=== PATIENT | male | born 1960 | race American Indian/Alaskan Native ===

== ENCOUNTER 2019-08-09 07:08 | Observation (INO) | payer MEDICARE ==
--- NOTE | 2019-08-09 07:50 | Emergency Department Report ---
HPI - General Chief Complaint: Dyspnea/Respdistress Time Seen by Provider: 08/09/19 07:37 - HPI HPI: Room 26 The patient is a 58-year-old male present with a chief complaint of shortness of breath. Patient states he feels like he needs hemodialysis as he developed the same shortness of breath whenever he does. Patient states his symptoms began last night. Patient denies history of fever. Patient states he took an albuterol treatment but it did not help. Patient denies sick contacts. Patient states his leaf stripper (Dr. Christine) called him yesterday and informed him he was over his dry weight ED Past Medical Hx - Past Medical History Previous Medical History?: Yes Hx Hypertension: Yes Hx Diabetes: Yes Hx GERD: Yes Hx Renal Disease: Yes (ESRD M,W,F) Hx Asthma: Yes Additional medical history: Hypercholesterolemia, obstructive sleep apnea, GERD - Surgical History Past Surgical History?: Yes Additional Surgical History: Left chest permacath - Family History Family history: no significant - Social History Smoking Status: Former Smoker (None x25 years) Substance Use Type: None (Denies illicit drug use) ED Review of Systems ROS: Stated complaint: DIALYSIS Other details as noted in HPI Constitutional: denies: fever Eyes: denies: eye pain ENT: denies: throat pain Respiratory: shortness of breath Cardiovascular: denies: chest pain Endocrine: no symptoms reported Gastrointestinal: denies: vomiting Musculoskeletal: denies: back pain Neurological: denies: headache Physical Exam - Physical Exam Vital Signs: Vital Signs 08/09/19 08/09/19 07:41 07:42 Temperature 97.8 F O2 Sat by Pulse 93 Oximetry Physical Exam: GENERAL: The patient is well-developed well-nourished male lying on stretcher not appearing to be in acute distress. [] HEENT: Normocephalic. Atraumatic. Extraocular motions are intact. Patient has moist mucous membranes. NECK: Supple. Trachea midline CHEST/LUNGS: Clear to auscultation. There is no respiratory distress noted. HEART/CARDIOVASCULAR: Regular. There is no tachycardia. There is no gallop rub or murmur. ABDOMEN: Abdomen is soft, nontender. Patient has normal bowel sounds. There is no abdominal distention. SKIN: There is no rash. There is no edema. There is no diaphoresis. NEURO: The patient is awake, alert, and oriented. The patient is cooperative. The patient has normal speech MUSCULOSKELETAL: There is no evidence of acute injury. ED Course Vital Signs 08/09/19 08/09/19 07:41 07:42 Temperature 97.8 F O2 Sat by Pulse 93 Oximetry - Consultations Consultation #1: 08/09/19 09:09 Nephrology paged 08/09/19 09:[address] Pillai- will arrange for hemodialysis ED Medical Decision Making - Lab Data Result diagrams: 08/09/19 08:26 08/09/19 08:26 Laboratory Tests 08/09/19 08/09/19 08:26 08:26 WBC 8.7 RBC 3.28 L Hgb 10.4 L Hct 31.0 L MCV 94 MCH 32 MCHC 34 RDW 16.9 H Plt Count 197 Lymph % (Auto) 11.8 L Sab[place] % (Auto) 5.4 Eos % (Auto) 9.4 H Baso % (Auto) 1.3 Lymph # 1.0 L Sabine # 0.5 Eos # 0.8 H Baso # 0.1 Seg Neutrophils % 72.1 H Seg Neutrophils # 6.3 Sodium 137 Potassium 4.9 Chloride 92.3 L Carbon Dioxide 23 Anion Gap 27 BUN 75 H Creatinine 15.6 H Estimated GFR 4 BUN/Creatinine Ratio 5 Glucose 183 H Calcium 9.5 - Radiology Data Radiology results: report reviewed (Chest x-ray), image reviewed ( chest x-ray) interpreted by me: Chest x-ray-no focal infiltrates, no pneumothorax [facility] [address] [place] [address] XRay Report Signed Patient: RAGHU MAY MR#: [id number] : 1960 Acct:[id number] Age/Sex: 58 / M ADM Date: 08/09/19 Loc: ED Attending Dr: Ordering Physician: ERICK CHAVARRIA MD Date of Service: 08/09/19 Procedure(s): XR chest 1V ap Accession Number(s): [id number] cc: ERICK CHAVARRIA MD Fluoro Time In Minutes: CHEST 1 VIEW INDICATION / CLINICAL INFORMATION: Shortness of breath. COMPARISON: None available. FINDINGS: SUPPORT DEVICES: Left IJ tunneled central venous catheter with tip terminating near the cavoatrial junction. HEART / MED IASTINUM: Unremarkable allowing for AP technique. LUNGS / PLEURA: No significant pulmonary or pleural abnormality. No pneumothorax. ADDITIONAL FINDINGS: No significant additional findings. IMPRESSION: 1. No acute findings. Signer Name: Ankita Joy MD Signed: 08/09/2019 8:33 AM Workstation Name: [id number] Transcribed By: [facility] Dictated By: Ankita Joy MD Electronically Authenticated By: Ankita Joy MD Signed Date/Time: 08/09/19832 DD/ 0 TD/TT: - Differential Diagnosis Pulmonary edema, pneumonia, ESRD Critical care attestation.: If time is entered above; I have spent that time in minutes in the direct care of this critically ill patient, excluding procedure time. ED Disposition Clinical Impression: End stage renal disease, Shortness of breath Disposition: DC-09 OP ADMIT IP TO THIS HOSP Is pt being admited?: Yes Does the pt Need Aspirin: No Condition: Fair Time of Disposition: 09:44 (Hospitalist paged)
[2019-08-09 08:34] LABS: Basophils # (Auto) 0.1 K/mm3 (0.0-0.1); Basophils % (Auto) 1.3 % (0.0-1.8); Eosinophils # (Auto) 0.8 K/mm3 (0.0-0.4); Eosinophils % (Auto) 9.4 % (0.0-4.3); Hemoglobin 10.4 gm/dl (11.8-15.2); Lymphocytes % (Auto) 11.8 % (13.4-35.0); Mean Corpuscular HGB Conc 34 % (32-34); Mean Corpuscular Volume 94 fl (84-94); Monocytes # (Auto) 0.5 K/mm3 (0.0-0.8); Monocytes % (Auto) 5.4 % (0.0-7.3); Platelet Count 197 K/mm3 (140-440); Red Blood Count 3.28 M/mm3 (3.65-5.03); Red Cell Distribution Width 16.9 % (13.2-15.2)
--- NOTE | 2019-08-09 08:37 | XRay Report ---
CHEST 1 VIEW INDICATION / CLINICAL INFORMATION: Shortness of breath. COMPARISON: None available. FINDINGS: SUPPORT DEVICES: Left IJ tunneled central venous catheter with tip terminating near the cavoatrial ju nction. HEART / MEDIASTINUM: Unremarkable allowing for AP technique. LUNGS / PLEURA: No significant pulmonary or pleural abnormality. No pneumothorax. ADDITIONAL FINDINGS: No significant additional findings. IMPRESSION: 1. No acute findings. Signer Name: Ankita Joy MD Signed: 08/09/2019 8:33 AM Workstation Name: [id number]
[2019-08-09 08:53] LABS: Calcium 9.5 mg/dL (8.4-10.2)
[2019-08-09] MEDS ORDERED: SODIUM CHLORIDE 0.9% 100 ML IV PRN ×2 (09:59→10:05)
[2019-08-09] MEDS ORDERED: HEPARIN 10,000 UNITS/10 ML VIAL IV PRN (09:59)
[2019-08-09] MEDS ORDERED: EPOETIN ALFA 10,000 UNIT/1 ML INJ IV PRN (09:59)
[2019-08-09] MEDS ORDERED: DEXTROSE 50% IN WATER (25GM) 50 ML SYRINGE IV PRN (10:56)
[2019-08-09] MEDS ORDERED: ALBUTEROL 2.5 MG/3 ML NEBU IH PRN (10:56)
[2019-08-09] MEDS ORDERED: ACETAMINOPHEN 325 MG TAB PO PRN (10:56)
[2019-08-09] MEDS ORDERED: ONDANSETRON 4 MG/2 ML INJ IV PRN (10:56)
[2019-08-09] MEDS ORDERED: MORPHINE 2 MG/1 ML INJ IV PRN (10:56)
--- NOTE | 2019-08-09 11:00 | History and Physical Report ---
History of Present Illness Date of examination: 08/09/19 Date of admission: 08/09/19 10:17 Chief complaint: Shortness of breath History of present illness: Patient is a 58-year-old male past medical history of end-stage renal disease, hypertension, diabetes mellitus among others who presented to the ED with complaint of shortness of breath. Per the patient he had missed dialysis twice last week and was able to have a make-up day on Thursday but does not feel that he is close to his dry weight. He stated upon informing his hand suture winder of his symptoms they asked him to come to the hospital for further evaluation as albuterol treatment alone did not provide any help. Patient denies any contact with anyone diagnosed with the COVID-19 virus. He denies any chest pain nausea vomiting or diarrhea he denies any recent fever. ROS: Except as noted in HPI 14 point system has been reviewed with the patient otherwise negative Past History Past Medical History: diabetes, ESRD, hypertension, hyperlipidemia Past Surgical History: No surgical history (Dialysis access) Social history: no significant social history Family history: no significant family history Medications and Allergies Allergies Allergy/AdvReac Type Severity Reaction Status Date / Time morphine Allergy Rash Verified 08/09/19 07:24 Active Meds: Active Medications Acetaminophen (Tylenol) 650 mg PO Q4H PRN PRN Reason: Pain MILD(1-3)/Fever >100.5/GUERRERO Albuterol (Proventil) 2.5 mg IH Q4HRT PRN PRN Reason: Shortness Of Breath Albuterol/Ipratropium (Duoneb *Not For Prn Use*) 1 ampul IH Q6HRT [facility] Dextrose (D50w (25gm) Syringe) 50 ml IV Q30MIN PRN; Protocol PRN Reason: Hypoglycemia Epoetin Chema (Procrit) 10,000 unit IV HORTENSIA PRN PRN Reason: hemodialysis Famotidine (Pepcid) 20 mg IV BID [facility] Heparin Sodium (Porcine) (Heparin 10,000 Units/10 Ml) 2,000 unit IV HORTENSIA PRN PRN Reason: hemodialysis Sodium Chloride (Nacl 0.9%) 100 mls @ 999 mls/hr IV HORTENSIA PRN PRN Reason: Hypotension Sodium Chloride (Nacl 0.9%) 100 mls @ 999 mls/hr IV HORTENSIA PRN PRN Reason: Hypotension Insulin Glargine (Lantus) 10 units SUB-Q QHS ED Insulin Human Lispro (Humalog) 0 unit SUB-Q ACHS ED; Protocol Morphine Sulfate (Morphine) 2 mg IV Q4H PRN PRN Reason: Pain, Moderate (4-6) Ondansetron HCl (Zofran) 4 mg IV Q8H PRN PRN Reason: Nausea And Vomiting Sodium Chloride (Sodium Chloride Flush Syringe 10 Ml) 10 ml IV BID ED Sodium Chloride (Sodium Chloride Flush Syringe 10 Ml) 10 ml IV PRN PRN PRN Reason: LINE FLUSH Exam - Physical Exam Narrative exam: VITAL SIGNS: Reviewed. GENERAL: The patient appears normally developed, morbidly obese vital signs as documented. HEAD: No signs of head trauma. EYES: Pupils are equal. Extraocular motions intact. EARS: Hearing grossly intact. MOUTH: Oropharynx is normal. NECK: No adenopathy, no JVD. CHEST: Chest with diminished breath sounds bilaterally. No wheezes, rales, or rhonchi. CARDIAC: Regular rate and rhythm. S1 and S2, without murmurs, gallops, or rubs. VASCULAR: No Edema. Peripheral pulses normal and equal in all extremities. ABDOMEN: Soft, non tender and non distended. No rebound or guarding, and no masses palpated. Bowel Sounds normal. MUSCULOSKELETAL: Good range of motion of all major joints. Extremities without clubbing, cyanosis or edema. NEUROLOGIC EXAM: Awake but lethargic and oriented x 3 No focal sensory or strength deficits. Speech normal. Follows commands. PSYCHIATRIC: Mood normal. SKIN: detial exam as documented in skin assessment - Constitutional Vitals: Temp Pulse Resp BP Pulse Ox 97.8 F 75 175/64 93 08/09/19 07:42 08/09/19 07:46 08/09/19 09:30 08/09/19 07:41 Results - Labs CBC & Chem 7: 08/09/19 08:26 08/09/19 08:26 Labs: Laboratory Last Values WBC 8.7 K/mm3 (4.5-11.0) 08/09/19 08:26 RBC 3.28 M/mm3 (3.65-5.03) L 08/09/19 08:26 Hgb 10.4 gm/dl (11.8-15.2) L 08/09/19 08:26 Hct 31.0 % (35.5-45.6) L 08/09/19 08: MCV 94 fl (84-94) 08/09/19 08: MCH 32 pg (28-32) 08/09/19 08:26 MCHC 34 % (32-34) 08/09/19 08:26 RDW 16.9 % (13.2-15.2) H 08/09/19 08:26 Plt Count 197 K/mm3 (140-440) 08/09/19 08:26 Lymph % (Auto) 11.8 % (13.4-35.0) L 08/09/19 08:26 [place] % (Auto) 5.4 % (0.0-7.3) 08/09/19 08:26 Eos % (Auto) 9.4 % (0.0-4.3) H 08/09/19 08:26 Baso % (Auto) 1.3 % (0.0-1.8) 08/09/19 08:26 Lymph # 1.0 K/mm3 (1.2-5.4) L 08/09/19 08:26 [place] # 0.5 K/mm3 (0.0-0.8) 08/09/19 08:26 Eos # 0.8 K/mm3 (0.0-0.4) H 08/09/19 08:26 Baso # 0.1 K/mm3 (0.0-0.1) 08/09/19 08:26 Seg Neutrophils % 72.1 % (40.0-70.0) H 08/09/19 08:26 Seg Neutrophils # 6.3 K/mm3 (1.8-7.7) 08/09/19 08:26 Sodium 137 mmol/L (137-145) 08/09/19 08:26 Potassium 4.9 mmol/L (3.6-5.0) 08/09/19 08:26 Chloride 92.3 mmol/L (98-107) L 08/09/19 08:26 Carbon Dioxide 23 mmol/L (22-30) 08/09/19 08:26 Anion Gap 27 mmol/L 08/09/19 08:26 BUN 75 mg/dL (9-20) H 08/09/19 08:26 Creatinine 15.6 mg/dL (0.8-1.5) H 08/09/19 08:26 Estimated GFR 4 ml/min 08/09/19 08:26 BUN/Creatinine Ratio 5 % 08/09/19 08:26 Glucose 183 mg/dL (75-100) H 08/09/19 08:26 Calcium 9.5 mg/dL (8.4-10.2) 08/09/19 08:26 Assessment and Plan Assessment and plan: Patient is a 58-year-old male past medical history of end-stage renal disease, hypertension, diabetes mellitus among others who presented to the ED with complaint of shortness of breath. Per the patient he had missed dialysis twice last week and was able to have a make-up day on Thursday but does not feel that he is close to his dry weight. He stated upon informing his hand suture winder of his symptoms they asked him to come to the hospital for further evaluation as albuterol treatment alone did not provide any help. Patient denies any contact with anyone diagnosed with the COVID-19 virus. He denies any chest pain nausea vomiting or diarrhea he denies any recent fever. Acute respiratory failure secondary to volume overload Volume overload End-stage renal disease Morbid obesity Diabetes mellitus Hypertension Plan Admit to telemetry Advised patient about fluid restriction and dietary compliance Vending Machine Host/Hostess already been consulted Restart home medications discussed with nursing staff to obtain accurate home med list Insulin sliding scale coverage and Lantus at bedtime Daily weight Anticipate that as patient improves possible discharge in a.m. DVT and GI prophylaxis Advance Directives: Yes Plan of care discussed with patient/family: Yes
[2019-08-09 13:28] LABS: Hepatitis B Surface Antigen Non-Reactive (Negative); Hepatitis C Virus Antibody Non-Reactive (NonReactive)
[2019-08-09] MEDS: IPRATROPIUM/ALBUTEROL SULFATE 3 ML AMPUL.NEB IH SCH ×2 (15:10→20:39)
[2019-08-09] MEDS: INSULIN LISPRO 100 UNIT/ML SUB-Q SCH ×2 (17:47→22:18)
[2019-08-09] MEDS: amLODIPine 10 MG TAB PO SCH (17:51)
[2019-08-09] MEDS ORDERED: INSULIN GLARGINE 100 UNITS/ML SUB-Q SCH ×2 (22:00)
[2019-08-09] MEDS ORDERED: PRAVASTATIN 80 MG TAB PO SCH (22:00)
[2019-08-09] MEDS ORDERED: MONTELUKAST 10 MG TAB PO SCH (22:00)
[2019-08-09] MEDS ORDERED: FAMOTIDINE 20 MG/2 ML INJ IV SCH (22:00)
[2019-08-09] MEDS: FAMOTIDINE 10 MG TAB PO SCH (23:33)
[2019-08-10] MEDS: IPRATROPIUM/ALBUTEROL SULFATE 3 ML AMPUL.NEB IH SCH ×3 (02:49→16:36)
[2019-08-10 04:31] LABS: Basophils # (Auto) 0.1 K/mm3 (0.0-0.1); Basophils % (Auto) 1.1 % (0.0-1.8); Eosinophils % (Auto) 12.6 % (0.0-4.3); Hematocrit 31.5 % (35.5-45.6); Hemoglobin 10.4 gm/dl (11.8-15.2); Lymphocytes # (Auto) 1.2 K/mm3 (1.2-5.4); Lymphocytes % (Auto) 15.5 % (13.4-35.0); Mean Corpuscular HGB Conc 33 % (32-34); Mean Corpuscular Volume 95 fl (84-94); Monocytes # (Auto) 0.5 K/mm3 (0.0-0.8); Platelet Count 188 K/mm3 (140-440); Red Blood Count 3.31 M/mm3 (3.65-5.03); Red Cell Distribution Width 17.8 % (13.2-15.2)
[2019-08-10 04:50] LABS: Calcium 9.2 mg/dL (8.4-10.2)
[2019-08-10] MEDS ORDERED: ALBUTEROL 8.5 GM INHALATION IH PRN (08:27)
[2019-08-10] MEDS: INSULIN LISPRO 100 UNIT/ML SUB-Q SCH ×3 (08:40→13:36)
[2019-08-10] MEDS ORDERED: SODIUM CHLORIDE*PRIMING MACHINE ONLY FOR DIALYSIS MC ONE (09:47)
[2019-08-10] MEDS ORDERED: METOPROLOL TARTRATE 50 MG TAB PO SCH (10:00)
[2019-08-10] MEDS ORDERED: PANTOPRAZOLE 40 MG TAB PO SCH (10:00)
--- NOTE | 2019-08-10 12:29 | Discharge Summary ---
Providers - Providers Date of Admission: 08/09/19 10:17 Attending physician: CRISTOFER MARIO MD 08/09/19 09:43 Consult to Physician [CONS] Urgent Comment: DR AURA RICHARDS W/DR DUQUE @0941 Consulting Provider: AUDREY DUQUE Physician Instructions: Reason For Exam: ESRD, shortness of breath Primary care physician: LUIS PAK Hospitalization Reason for admission: Volume overload with respiratory failure Condition: Stable Hospital course: Patient is a 58-year-old male past medical history of end-stage renal disease, hypertension, diabetes mellitus among others who presented to the ED with complaint of shortness of breath. Per the patient he had missed dialysis twice last week and was able to have a make-up day on Thursday but does not feel that he is close to his dry weight. He stated upon informing his employee representative of his symptoms they asked him to come to the hospital for further evaluation as albuterol treatment alone did not provide any help. Patient denies any contact with anyone diagnosed with the COVID-19 virus. He denies any chest pain nausea vomiting or diarrhea he denies any recent fever. * Patient on admission was dialyzed next day the patient was also dialyzed with good result. Discussed with employee representative today through commended the patient can be discharged and follow-up outpatient. No other abdominal findings were noted discussed this management with the patient he verbalized understanding he denies any shortness of breath at this time. * Patient will resume all home medications. Acute respiratory failure secondary to volume overload Volume overload End-stage renal disease Morbid obesity Diabetes mellitus Hypertension Disposition: DC-01 TO HOME OR SELFCARE Time spent for discharge: 35 minutes Core Measure Documentation - Palliative Care Palliative Care/ Comfort Measures: Not Applicable - Core Measures Any of the following diagnoses?: none Exam - Physical Exam Narrative exam: VITAL SIGNS: Reviewed. GENERAL: The patient appears normally developed, morbidly obese vital signs as documented. HEAD: No signs of head trauma. EYES: Pupils are equal. Extraocular motions intact. EARS: Hearing grossly intact. MOUTH: Oropharynx is normal. NECK: No adenopathy, no JVD. CHEST: Chest with diminished breath sounds bilaterally. No wheezes, rales, or rhonchi. CARDIAC: Regular rate and rhythm. S1 and S2, without murmurs, gallops, or rubs. VASCULAR: No Edema. Peripheral pulses normal and equal in all extremities. ABDOMEN: Soft, non tender and non distended. No rebound or guarding, and no masses palpated. Bowel Sounds normal. MUSCULOSKELETAL: Good range of motion of all major joints. Extremities without clubbing, cyanosis or edema. NEUROLOGIC EXAM: Awake and oriented x 3 No focal sensory or strength deficits. Speech normal. Follows commands. PSYCHIATRIC: Mood normal. SKIN: detial exam as documented in skin assessment - Constitutional Vitals: Temp Pulse Resp BP Pulse Ox 98.3 F 67 18 158/67 98 08/10/19 07:49 08/10/19 08:43 08/10/19 08:43 08/10/19 07:49 08/10/19 08:43 Plan Activity: advance as tolerated, fall precautions Diet: diabetic, renal Special Instructions: record daily BP diary, record blood sugar diary Follow up with: LUIS PAK MD [Primary Care Provider] - 7 Days MORRIS GRIER MD [Staff Physician] - 7 Days
[2019-08-10] MEDS: amLODIPine 10 MG TAB PO SCH (13:36)
[2019-08-10] MEDS: FAMOTIDINE 10 MG TAB PO SCH (13:36)
[2019-08-10 15:02] VITALS: BP 172/98
--- NOTE | 2019-08-10 15:28 | Consultation ---
History of Present Illness - Reason for Consult Consult date: 08/10/19 end stage renal disease Requesting physician: CRISTOFER MARIO - History of Present Illness 58-year-old male with a history of hypertension, end-stage renal disease on hemodialysison a Thursday, Thursday and Thursday schedule at see [place] dialysis. Patient's says he has had some problems with his insurance and had no coverage for transportation to dialysis. He missed dialysis on Thursday and because of this. His last dialysis was last Thursday. Patient started having shortness of breath and chest discomfort and decided to come to the hospital for dialysis whille awaiting a solution to his insurance issues. Patient admits to cough which is productive of clear sputum. No hemoptysis. He has midsternal chest discomfort which radiates to the back worse on moving. There is no fever or chills. Appetite has been good. He admits to nasal congestion and posterior nasal drip. No palpitations and very mild lower extremity swelling. And denies any nausea or vomiting. He makes very little urine with no frequency or dysuria. No bleeding or bruising. He admits to itching but no rash. No headache or syncope or seizures. No joint pain swelling or stiffness but he admits to anxiety and depression symptoms Past History Past Medical History: diabetes, ESRD, hypertension, hyperlipidemia, other (morbid obesity) Past Surgical History: No surgical history (Dialysis access), Other (AV fistula surgery and revisions, Permacath placement) Social history: no significant social history. denies: smoking, alcohol abuse Family history: no significant family history, hypertension (mother) Medications and Allergies Allergies Allergy/AdvReac Type Severity Reaction Status Date / Time morphine Allergy Rash Verified 08/09/19 07:24 Home Medications Medication Instructions Recorded Confirmed Last Taken Type Albuterol INH(or & Nicu Only) 2 puff IH QID PRN 08/09/19 08/09/19 Unknown History [ProAir HFA Inhaler] Amlodipine Besylate [Norvasc] 10 mg PO DAILY 08/09/19 08/09/19 Unknown History Insulin Detemir [Levemir Flextouch] 20 unit SQ BID 08/09/19 08/09/19 08/08/19 History Metoprolol Succinate [Kapspargo 50 mg PO DAILY 08/09/19 08/09/19 Unknown History Sprinkle] Montelukast [Singulair] 10 mg PO QPM 08/09/19 08/09/19 Unknown History Omeprazole Magnesium [PriLOSEC Otc] 40 mg PO QDAY 08/09/19 08/09/19 Unknown History Simvastatin 40 mg PO QHS 08/09/19 08/09/19 Unknown History Active Meds: Active Medications Acetaminophen (Tylenol) 650 mg PO Q4H PRN PRN Reason: Pain MILD(1-3)/Fever >100.5/GUERRERO Albuterol (Proventil) 2.5 mg IH Q4HRT PRN PRN Reason: Shortness Of Breath Albuterol/Ipratropium (Duoneb *Not For Prn Use*) 1 ampul IH Q6HRT [facility] Last Admin: 08/10/19 08:40 Dose: 1 ampul Documented by: Amlodipine Besylate (Amlodipine) 10 mg PO QDAY [facility] Last Admin: 08/10/19 13:36 Dose: Not Given Documented by: Dextrose (D50w (25gm) Syringe) 50 ml IV Q30MIN PRN; Protocol PRN Reason: Hypoglycemia Epoetin Chema (Procrit) 10,000 unit IV HORTENSIA PRN PRN Reason: hemodialysis Famotidine (Pepcid) 10 mg PO BID [facility] Last Admin: 08/10/19 13:36 Dose: Not Given Documented by: Heparin Sodium (Porcine) (Heparin 10,000 Units/10 Ml) 2,000 unit IV HORTENSIA PRN PRN Reason: hemodialysis Sodium Chloride (Nacl 0.9%) 100 mls @ 999 mls/hr IV HORTENSIA PRN PRN Reason: Hypotension Insulin Glargine (Lantus) 20 units SUB-Q QHS [facility] Last Admin: 08/09/19 22:19 Dose: 20 units Documented by: Insulin Human Lispro (Humalog) 0 unit SUB-Q [facility]; Protocol Last Admin: 08/10/19 13:36 Dose: Not Given Documented by: Metoprolol Tartrate (Metoprolol) 50 mg PO QDAY [facility] Last Admin: 08/10/19 13:36 Dose: Not Given Documented by: Montelukast Sodium (Singulair) 10 mg PO QHS [facility] Last Admin: 08/09/19 22:17 Dose: 10 mg Documented by: Morphine Sulfate (Morphine) 2 mg IV Q4H PRN PRN Reason: Pain, Moderate (4-6) Ondansetron HCl (Zofran) 4 mg IV Q8H PRN PRN Reason: Nausea And Vomiting Pantoprazole Sodium (Protonix) 40 mg PO QDAY [facility] Last Admin: 08/10/19 13:36 Dose: Not Given Documented by: Pravastatin Sodium (Pravachol) 80 mg PO QHS [facility] Last Admin: 08/09/19 22:17 Dose: 80 mg Documented by: Sodium Chloride (Sodium Chloride Flush Syringe 10 Ml) 10 ml IV BID [facility] Last Admin: 08/10/19 13:36 Dose: Not Given Documented by: Sodium Chloride (Sodium Chloride Flush Syringe 10 Ml) 10 ml IV PRN PRN PRN Reason: LINE FLUSH Review of Systems All systems: negative (See HPI) Exam - Vital Signs Vital signs: Vital Signs Pulse Ox 96 08/09/19 07:33 - Physical Exam Narrative exam: middle-aged -[place] male lying in bedin no acute distress HEENT: Normocephalic atraumatic, pupils equal round reactive to light Normal oropharynx, Neck: Supple, no venous distention, no goiter, IJ permacath CVS: S1S2 RRR No murmur, rub or gallop Lungs: Clear to auscultation, no use of accessory muscles of respiration Abdomen: Full, soft, nontender, no organomegaly no bruit, bowel sounds are present Extremities: No edema, no cyanosis or clubbing Urinary: Deferred Musculo-skeletal: No joint deformities or swelling, clotted right upper extremity AV fistula Neuro: Awake, alert, no focal deficits Results - Lab Results 08/10/19 03:58 08/10/19 03:58 Most recent lab results Calcium 9.2 mg/dL (8.4-10.2) 08/10/19 03:58 Assessment and Plan - Patient Problems (1) Other fluid overload Current Visit: Yes Status: Acute Plan to address problem: fluid overload secondary to missed dialysis treatments. Improved with dialysis. (2) Accelerated essential hypertension Current Visit: Yes Status: Acute Plan to address problem: accelerated hypertension probably volume related. Blood pressure has improved with dialysis. (3) Anemia in chronic kidney disease Current Visit: Yes Status: Acute Plan to address problem: continue erythropoietin on dialysis (4) End stage renal disease Current Visit: Yes Status: Acute Plan to address problem: hemodialysis was done yesterday and again today for solute clearance and fluid removal. Reevaluate after dialysis today. Patient should be okay to discharge from renal standpoint after dialysis. He will go to the outpatient dialysis clinic on Thursday. I have asked him to speak with the social services director at the dialysis clinic and see what arrangements can be made to help with his transportation for for dialysis.
== END 2019-08-10 17:00 | disposition home or self-care (01) ==
LOC: ED 07:08 → 4A 10:17
PROVIDERS: ADMIT Internal Medicine; ATTEND Internal Medicine
DX: J96.00 Acute respiratory failure, unspecified whether with hypoxia or hypercapnia (principal); E87.70 Fluid overload, unspecified; I12.0 Hypertensive chronic kidney disease with stage 5 chronic kidney disease or end stage renal disease; E11.22 Type 2 diabetes mellitus with diabetic chronic kidney disease; N18.6 End stage renal disease; E66.01 Morbid (severe) obesity due to excess calories; E78.5 Hyperlipidemia, unspecified; D63.1 Anemia in chronic kidney disease; J45.909 Unspecified asthma, uncomplicated; K21.9 Gastro-esophageal reflux disease without esophagitis; E78.00 Pure hypercholesterolemia, unspecified; G47.33 Obstructive sleep apnea (adult) (pediatric); Z87.891 Personal history of nicotine dependence; Z99.2 Dependence on renal dialysis; Z79.4 Long term (current) use of insulin; Z79.899 Other long term (current) drug therapy; Z88.5 Allergy status to narcotic agent
CPT/HCPCS: 36415; 71045; 80048; 80074; 82962; 85025; 94640; 99284; A9270; G0257; G0378; J0885; J1644; J7030; J1815

== ENCOUNTER 2019-09-16 10:39 | Observation (INO) | payer MEDICARE ==
--- NOTE | 2019-09-16 11:19 | Emergency Department Report ---
ED General Adult HPI - General Chief complaint: Dyspnea/Respdistress Stated complaint: CHEST PAIN Time Seen by Provider: 09/16/19 11:05 Source: patient, EMS Mode of arrival: Stretcher Limitations: No Limitations - History of Present Illness Initial comments: This is a 58-year-old man with a permacath that he was told was not functioning properly on Thursday. Is uncertain why he waited 2 days to report to the emergency department. In any case his last full dialysis he states was "Thursday or Thursday". He is not very cooperative. He would not allow the IV team to stick him more than once for IV access. He states today that he is short of breath. He states the dyspnea worsens when he sits up. He will lay in the left lateral decubitus position and does not cooperate very well with physical exam. Denies fever. He denies chest pain, nausea or vomiting. However he is providing limited historical information. July Discharge Summary: Hospitalization Reason for admission: Volume overload with respiratory failure Condition: Stable Hospital course: Patient is a 58-year-old male past medical history of end-stage renal disease, hypertension, diabetes mellitus among others who presented to the ED with complaint of shortness of breath. Per the patient he had missed dialysis twice last week and was able to have a make-up day on Thursday but does not feel that he is close to his dry weight. He stated upon informing his salesperson new cars of his symptoms they asked him to come to the hospital for further evaluation as albuterol treatment alone did not provide any help. Patient denies any contact with anyone diagnosed with the COVID-19 virus. He denies any chest pain nausea vomiting or diarrhea he denies any recent fever. Patient on admission was dialyzed next day the patient was also dialyzed with good result. Discussed with salesperson new cars today through commended the patient can be discharged and follow-up outpatient. No other abdominal findings were noted discussed this management with the patient he verbalized understanding he denies any shortness of breath at this time. Patient will resume all home medications. Acute respiratory failure secondary to volume overload Volume overload End-stage renal disease Morbid obesity Diabetes mellitus Hypertension -: Gradual Consistency: other (No pain complaint) Treatments Prior to Arrival: other (No full dialysis since the beginning of the week as above ) - Related Data Home Medications Medication Instructions Recorded Confirmed Last Taken Albuterol INH(or & Nicu Only) 2 puff IH QID PRN 08/09/19 08/09/19 Unknown [ProAir HFA Inhaler] Amlodipine Besylate [Norvasc] 10 mg PO DAILY 08/09/19 08/09/19 Unknown Insulin Detemir [Levemir Flextouch] 20 unit SQ BID 08/09/19 08/09/19 08/08/19 Metoprolol Succinate [[place]sp[place] 50 mg PO DAILY 08/09/19 08/09/19 Unknown Sprinkle] Montelukast [Singulair] 10 mg PO QPM 08/09/19 08/09/19 Unknown Omeprazole Magnesium [PriLOSEC Otc] 40 mg PO QDAY 08/09/19 08/09/19 Unknown Simvastatin 40 mg PO QHS 08/09/19 08/09/19 Unknown Allergies Allergy/AdvReac Type Severity Reaction Status Date / Time morphine Allergy Rash Verified 08/09/19 07:24 ED Review of Systems ROS: Stated complaint: CHEST PAIN Other details as noted in HPI Comment: Unobtainable due to pts medical conditions ED Past Medical Hx - Past Medical History Previous Medical History?: Yes Hx Hypertension: Yes Hx Diabetes: Yes Hx GERD: Yes Hx Renal Disease: Yes (ESRD M,W,F) Hx Asthma: Yes Additional medical history: Hypercholesterolemia, obstructive sleep apnea, GERD - Surgical History Past Surgical History?: Yes Additional Surgical History: Left chest permacath - Social History Smoking Status: Unknown if ever smoked Substance Use Type: None - Medications Home Medications: Home Medications Medication Instructions Recorded Confirmed Last Taken Type Albuterol INH(or & Nicu Only) 2 puff IH QID PRN 08/09/19 08/09/19 Unknown History [ProAir HFA Inhaler] Amlodipine Besylate [Norvasc] 10 mg PO DAILY 08/09/19 08/09/19 Unknown History Insulin Detemir [Levemir Flextouch] 20 unit SQ BID 08/09/19 08/09/19 08/08/19 History Metoprolol Succinate [[place] 50 mg PO DAILY 08/09/19 08/09/19 Unknown History Sprinkle] Montelukast [Singulair] 10 mg PO QPM 08/09/19 08/09/19 Unknown History Omeprazole Magnesium [PriLOSEC Otc] 40 mg PO QDAY 08/09/19 08/09/19 Unknown History Simvastatin 40 mg PO QHS 08/09/19 08/09/19 Unknown History ED Physical Exam - General Limitations: Physical Limitation General appearance: alert - Head Head exam: Present: atraumatic, normocephalic - Eye Eye exam: Present: normal appearance. Absent: scleral icterus - ENT ENT exam: Present: mucous membranes moist - Neck Neck exam: Present: normal inspection - Respiratory Respiratory exam: Present: normal lung sounds bilaterally, other (Permacath on left). Absent: respiratory distress - Cardiovascular Cardiovascular Exam: Present: regular rate, normal rhythm. Absent: systolic murmur, diastolic murmur, rubs, gallop - GI/Abdominal GI/Abdominal exam: Present: soft, normal bowel sounds, other (Limited exam). Absent: tenderness, guarding - Rectal Rectal exam: Present: deferred - Extremities Exam Extremities exam: Absent: calf tenderness - Back Exam Back exam: Present: other (Limited exam) - Neurological Exam Neurological exam: Present: alert, oriented X3, other (No gross focal deficit) - Psychiatric Psychiatric exam: Present: normal mood, flat affect - Skin Skin exam: Present: warm, dry, intact, normal color. Absent: rash ED Course Vital Signs 09/16/19 10:55 Temperature 98.3 F Pulse Rate 78 Respiratory 20 Rate Blood Pressure 182/98 O2 Sat by Pulse 98 Oximetry - Reevaluation(s) Reevaluation #1: Unable to get adequate cooperation for venous access. Patient just allowed one attempt which was unsuccessful by the IV team. Discussed with Dr. Hyde, vascular surgeon. The patient will be taken to the [facility] for evaluation of his permacath. Hospitalist notified of the need to admit. Nephrology consult called. Patient in stable condition. 09/16/19 12:32 ED Medical Decision Making - Lab Data Result diagrams: 09/16/19 11:13 09/16/19 11:13 Laboratory Results - last 24 hr 09/16/19 09/16/19 09/16/19 11:13 11:13 11:13 WBC 7.6 RBC 3.37 L Hgb 10.3 L Hct 31.5 L MCV 94 MCH 31 MCHC 33 RDW 16.6 H Plt Count 160 Lymph % (Auto) 16.3 [place] % (Auto) 6.1 Eos % (Auto) 11.8 H Baso % (Auto) 0.7 Lymph # 1.2 [place] # 0.5 Eos # 0.9 H Baso # 0.1 Seg Neutrophils % 65.1 Seg Neutrophils # 4.9 PT 12.7 INR 0.97 APTT 26.9 Sodium 135 L Potassium 5.3 H Chloride 89.7 L Carbon Dioxide 25 Anion Gap 26 BUN 51 H Creatinine 12.9 H Estimated GFR 5 BUN/Creatinine Ratio 4 Glucose 156 H Calcium 9.4 Phosphorus 11.00 H NT-Pro-B Natriuret Pep 4368 H - EKG Data -: EKG Interpreted by [place] EKG shows normal: sinus rhythm, axis, intervals, QRS complexes (Slightly peaked), ST-T waves - EKG Data Interpretation: no acute changes - Radiology Data Radiology results: image reviewed (Chest x-ray no acute process) Critical care attestation.: If time is entered above; I have spent that time in minutes in the direct care of this critically ill patient, excluding procedure time. ED Disposition Clinical Impression: End-stage renal disease needing dialysis, Hyperkalemia, Hyperphosphatemia Hemodialysis catheter malfunction Qualifiers: Encounter type: initial encounter Qualified Code(s): T82.41XA - Breakdown (mechanical) of vascular dialysis catheter, initial encounter Disposition: 09 OP ADMIT IP TO THIS HOSP Is pt being admited?: Yes Does the pt Need Aspirin: No Condition: Stable Referrals: PRIMARY CARE, [Primary Care Provider] - 3-5 Days Time of Disposition: 12:35
[2019-09-16 11:50] LABS: Basophils # (Auto) 0.1 K/mm3 (0.0-0.1); Basophils % (Auto) 0.7 % (0.0-1.8); Eosinophils # (Auto) 0.9 K/mm3 (0.0-0.4); Eosinophils % (Auto) 11.8 % (0.0-4.3); Hematocrit 31.5 % (35.5-45.6); Hemoglobin 10.3 gm/dl (11.8-15.2); Lymphocytes # (Auto) 1.2 K/mm3 (1.2-5.4); Lymphocytes % (Auto) 16.3 % (13.4-35.0); Mean Corpuscular HGB Conc 33 % (32-34); Mean Corpuscular Volume 94 fl (84-94); Monocytes # (Auto) 0.5 K/mm3 (0.0-0.8); Monocytes % (Auto) 6.1 % (0.0-7.3); Platelet Count 160 K/mm3 (140-440); Red Blood Count 3.37 M/mm3 (3.65-5.03); Red Cell Distribution Width 16.6 % (13.2-15.2)
[2019-09-16 11:57] LABS: INR 0.97 (0.87-1.13)
[2019-09-16 11:58] LABS: Partial Thromboplastin Time 26.9 Sec. (24.2-36.6)
[2019-09-16 12:10] LABS: Calcium 9.4 mg/dL (8.4-10.2)
[2019-09-16] MEDS ORDERED: HEPARIN/NS 5000 UNIT/500ML 500 ML IR ONE (13:27)
[2019-09-16] MEDS ORDERED: LIDOCAINE 1%/EPINEPHRINE 1:100,000 VIAL (20 ML) INFILTRATI ONE (13:28)
[2019-09-16] MEDS ORDERED: MIDAZOLAM 2 MG/2 ML INJ ONE (14:00)
[2019-09-16] MEDS ORDERED: fentaNYL 100 MCG/2 ML INJ ONE (14:00)
[2019-09-16] MEDS: HEPARIN 10,000 UNITS/10 ML VIAL ONE ×2 (14:19→14:20)
[2019-09-16] MEDS ORDERED: SODIUM CHLORIDE 0.9% 100 ML IV PRN ×2 (14:31→15:43)
[2019-09-16 16:26] LABS: Hepatitis B Surface Antigen Non-Reactive (Negative); Hepatitis C Virus Antibody Non-Reactive (NonReactive)
[2019-09-16] MEDS ORDERED: INSULIN REGULAR, HUMAN 100 UNITS/1 ML SUB-Q ONE (22:46)
[2019-09-16] MEDS ORDERED: DEXTROSE 50% IN WATER (25GM) 50 ML SYRINGE IV PRN (23:30)
[2019-09-16] MEDS ORDERED: HYDROcodone/ACETAMINOPHEN 5-325 MG TAB PO PRN (23:30)
[2019-09-16] MEDS ORDERED: ZOLPIDEM 5 MG TAB PO PRN (23:30)
[2019-09-16] MEDS ORDERED: ONDANSETRON 4 MG/2 ML INJ IV PRN (23:30)
[2019-09-16] MEDS ORDERED: ACETAMINOPHEN 325 MG TAB PO PRN (23:30)
[2019-09-16] MEDS ORDERED: ALBUTEROL 8.5 GM INHALATION IH PRN (23:36)
[2019-09-16] MEDS ORDERED: INSULIN DETEMIR 20 UNIT SQ SCH (23:45)
[2019-09-17] MEDS: PANTOPRAZOLE 40 MG TAB PO SCH ×2 (00:24→13:43)
[2019-09-17] MEDS: ALBUTEROL 2.5 MG/3 ML NEBU IH PRN ×3 (00:26→17:20)
[2019-09-17] MEDS: INSULIN GLARGINE 100 UNITS/ML SUB-Q SCH ×2 (00:27→13:43)
[2019-09-17] MEDS ORDERED: FAMOTIDINE 20 MG/2 ML INJ IV SCH (10:00)
[2019-09-17] MEDS ORDERED: METOPROLOL SUCCINATE 50 MG PO SCH (10:00)
[2019-09-17] MEDS ORDERED: amLODIPine 10 MG TAB PO SCH (10:00)
[2019-09-17] MEDS ORDERED: ENOXAPARIN 40 MG/0.4 ML INJ SUB-Q SCH (10:00)
[2019-09-17] MEDS ORDERED: ENOXAPARIN 30 MG/0.3 ML INJ SUB-Q SCH (10:00)
[2019-09-17] MEDS ORDERED: METOPROLOL SUCCINATE XL 50 MG TAB PO SCH (10:00)
[2019-09-17] MEDS ORDERED: SODIUM CHLORIDE 0.9% 1000 ML 2,000 ML ONE (11:02)
[2019-09-17 18:04] VITALS: BP 178/72
[2019-09-17] MEDS ORDERED: PRAVASTATIN 80 MG TAB PO SCH (22:00)
[2019-09-17] MEDS ORDERED: NON-FORMULARY EACH (Simvastatin [Simvastatin] 40 MG) PO SCH (22:00)
== END 2019-09-17 17:33 | disposition home or self-care (01) ==
LOC: ED 10:39 → 3A 12:24 → INTOOBSV 12:24 → 3A 16:53
PROVIDERS: ADMIT Internal Medicine; ATTEND Internal Medicine
DX: T82.41XA Breakdown (mechanical) of vascular dialysis catheter, initial encounter (principal); I13.2 Hypertensive heart and chronic kidney disease with heart failure and with stage 5 chronic kidney disease, or end stage renal disease; E13.22 Other specified diabetes mellitus with diabetic chronic kidney disease; N18.6 End stage renal disease; I50.9 Heart failure, unspecified; E66.01 Morbid (severe) obesity due to excess calories; D63.1 Anemia in chronic kidney disease; E78.5 Hyperlipidemia, unspecified; E83.39 Other disorders of phosphorus metabolism; E87.5 Hyperkalemia; Z99.2 Dependence on renal dialysis; Z88.5 Allergy status to narcotic agent; Z79.899 Other long term (current) drug therapy; Z79.4 Long term (current) use of insulin; Z68.43 Body mass index [BMI] 50.0-59.9, adult; X58.XXXA Exposure to other specified factors, initial encounter; Y93.89 Activity, other specified; Y92.89 Other specified places as the place of occurrence of the external cause
CPT/HCPCS: 36415; 36581; 71045; 77001; 80048; 80074; 82962; 83880; 84100; 85025; 85610; 85730; 94640; 96372; 99285; C1750; G0257; G0378; J1644; J1650; J2250; J3010; J7030; J1815

== ENCOUNTER 2019-12-10 22:37 | Emergency (ER) | payer MEDICARE ==
[2019-12-10] MEDS ORDERED: ASPIRIN 325 MG TAB PO ONE (23:57)
[2019-12-11 00:41] LABS: Basophils # (Auto) 0.1 K/mm3 (0.0-0.1); Basophils % (Auto) 0.8 % (0.0-1.8); Eosinophils # (Auto) 0.9 K/mm3 (0.0-0.4); Eosinophils % (Auto) 8.4 % (0.0-4.3); Hematocrit 34.4 % (35.5-45.6); Hemoglobin 11.1 gm/dl (11.8-15.2); Lymphocytes # (Auto) 0.9 K/mm3 (1.2-5.4); Lymphocytes % (Auto) 9.1 % (13.4-35.0); Mean Corpuscular HGB Conc 32 % (32-34); Mean Corpuscular Volume 94 fl (84-94); Monocytes # (Auto) 0.5 K/mm3 (0.0-0.8); Monocytes % (Auto) 5.2 % (0.0-7.3); Platelet Count 229 K/mm3 (140-440); Red Blood Count 3.66 M/mm3 (3.65-5.03); Red Cell Distribution Width 16.5 % (13.2-15.2)
[2019-12-11 00:57] LABS: Calcium 10.1 mg/dL (8.4-10.2)
[2019-12-11 01:42] LABS: Chol/HDL Ratio 4.54 %
[2019-12-11] MEDS ORDERED: oxyCODONE /ACETAMINOPHEN 5-325MG TAB PO ONE (02:26)
--- NOTE | 2019-12-11 02:31 | Emergency Department Report ---
ED General Adult HPI - General Chief complaint: Chest Pain Stated complaint: CHEST PAIN/ABDOMINAL PAIN/SOB PUI?: No Time Seen by Provider: 12/11/19 02:26 Source: patient, EMS Mode of arrival: Stretcher Limitations: No Limitations - History of Present Illness Initial comments: This is a 59-year-old male with history of end-stage renal disease on hemodialysis, severe obesity, hypertension, DM who presents with left lower rib cage pain for the past several days. Patient has had nasal and chest congestion. With cough he has pain. He has pain with moving and transferring. He has been sick for several days. He thinks that he may have popped a rib. -: Gradual, days(s) (Several days) Location: chest Severity scale (0 -10): 6 Quality: sharp Consistency: constant Worsens with: movement, other (Cough) Associated Symptoms: other (Nasal and chest congestion, frequent cough) - Related Data Home Medications Medication Instructions Recorded Confirmed Last Taken Insulin Detemir [Levemir Flextouch] 20 unit SQ BID 08/09/19 08/09/19 1 Day Ago ~09/15/19 Metoprolol Succinate [Kapspargo 50 mg PO DAILY 08/09/19 08/09/19 1 Day Ago Sprinkle] ~09/15/19 Montelukast [Singulair] 10 mg PO QPM 08/09/19 08/09/19 Unknown Omeprazole Magnesium [PriLOSEC Otc] 40 mg PO QDAY 08/09/19 08/09/19 1 Day Ago ~09/15/19 Simvastatin 40 mg PO QHS 08/09/19 08/09/19 1 Day Ago ~09/15/19 Previous Rx's Medication Instructions Recorded Last Taken Type ALBUTEROL NEB's [Proventil 0.083% 2.5 mg IH Q4HRT PRN nebu 09/17/19 Unknown Rx NEBS] Acetaminophen [Acetaminophen TAB] 650 mg PO Q4H PRN tablet 09/17/19 Unknown Rx Albuterol Mdi (or & Nicu Only) 2 puff IH QID PRN #1 09/17/19 Unknown Rx [ProAir HFA Inhaler] Amlodipine Besylate [Norvasc] 10 mg PO DAILY #30 09/17/19 Unknown Rx HYDROcodone/APAP 5-325 [[place] 2 each PO Q6H PRN #10 tablet 09/17/19 Unknown Rx 5-325 mg TAB] Pantoprazole [Protonix TAB] 40 mg PO QDAY tablet 09/17/19 Unknown Rx Zolpidem [Ambien] 5 mg PO QHS PRN tablet 09/17/19 Unknown Rx oxyCODONE /ACETAMINOPHEN [Percocet 1 tab PO Q6HR PRN #10 tablet 12/11/19 Unknown Rx 5/325] Allergies Allergy/AdvReac Type Severity Reaction Status Date / Time morphine Allergy Rash Verified 08/09/19 07:24 ED Review of Systems ROS: Stated complaint: CHEST PAIN/ABDOMINAL PAIN/SOB Other details as noted in HPI Comment: All other systems reviewed and negative Constitutional: denies: fever, malaise ENT: congestion. denies: dental pain Respiratory: cough. denies: shortness of breath, wheezing Cardiovascular: chest pain ED Past Medical Hx - Past Medical History Previous Medical History?: Yes Hx Hypertension: Yes Hx Diabetes: Yes Hx GERD: Yes Hx Renal Disease: Yes (ESRD M,W,F) Hx Asthma: Yes Additional medical history: Hypercholesterolemia, obstructive sleep apnea, GERD - Surgical History Past Surgical History?: Yes Additional Surgical History: Left chest permacath - Social History Smoking Status: Never Smoker Substance Use Type: None - Medications Home Medications: Home Medications Medication Instructions Recorded Confirmed Last Taken Type Insulin Detemir [Levemir Flextouch] 20 unit SQ BID 08/09/19 08/09/19 1 Day Ago History ~09/15/19 Metoprolol Succinate [Kapspargo 50 mg PO DAILY 08/09/19 08/09/19 1 Day Ago History Sprinkle] ~09/15/19 Montelukast [Singulair] 10 mg PO QPM 08/09/19 08/09/19 Unknown History Omeprazole Magnesium [PriLOSEC Otc] 40 mg PO QDAY 08/09/19 08/09/19 1 Day Ago History ~09/15/19 Simvastatin 40 mg PO QHS 08/09/19 08/09/19 1 Day Ago History ~09/15/19 ALBUTEROL NEB's [Proventil 0.083% 2.5 mg IH Q4HRT PRN nebu 09/17/19 Unknown Rx NEBS] Acetaminophen [Acetaminophen TAB] 650 mg PO Q4H PRN tablet 09/17/19 Unknown Rx Albuterol Mdi (or & Nicu Only) 2 puff IH QID PRN #1 09/17/19 Unknown Rx [ProAir HFA Inhaler] Amlodipine Besylate [Norvasc] 10 mg PO DAILY #30 09/17/19 Unknown Rx HYDROcodone/APAP 5-325 [[place] 2 each PO Q6H PRN #10 tablet 09/17/19 Unknown Rx 5-325 mg TAB] Pantoprazole [Protonix TAB] 40 mg PO QDAY tablet 09/17/19 Unknown Rx Zolpidem [Ambien] 5 mg PO QHS PRN tablet 09/17/19 Unknown Rx oxyCODONE /ACETAMINOPHEN [Percocet 1 tab PO Q6HR PRN #10 tablet 12/11/19 Unknown Rx 5/325] ED Physical Exam - General Limitations: No Limitations General appearance: alert, in no apparent distress, other (Severe discomfort whe n moving around in bed) - Head Head exam: Present: atraumatic, normocephalic - Eye Eye exam: Present: normal appearance - ENT ENT exam: Present: mucous membranes moist - Neck Neck exam: Present: normal inspection - Respiratory Respiratory exam: Present: normal lung sounds bilaterally, chest wall tenderness (Exquisite tenderness left lower rib cage midclavicular line). Absent: respiratory distress, wheezes, rales, rhonchi - Cardiovascular Cardiovascular Exam: Present: regular rate, normal rhythm, normal heart sounds. Absent: systolic murmur, diastolic murmur, rubs, gallop - GI/Abdominal GI/Abdominal exam: Present: soft, normal bowel sounds. Absent: distended, tenderness, guarding, rebound - Rectal Rectal exam: Present: deferred - Extremities Exam Extremities exam: Present: normal inspection - Neurological Exam Neurological exam: Present: alert, oriented X3 - Psychiatric Psychiatric exam: Present: normal affect, normal mood - Skin Skin exam: Present: warm, dry, intact, normal color. Absent: rash ED Course Vital Signs 12/10/19 12/11/19 12/11/19 23:48 02:36 03:15 Temperature 98.4 F 98.2 F Pulse Rate 90 90 Respiratory 18 18 18 Rate Blood Pressure 156/71 Blood Pressure 134/68 [Left] O2 Sat by Pulse 95 95 Oximetry ED Medical Decision Making - Lab Data Result diagrams: 12/11/19 00:00 12/11/19 00:00 Laboratory Results - last 24 hr 12/11/19 12/11/19 00:00 00:00 WBC 10.3 RBC 3.66 Hgb 11.1 L Hct 34.4 L MCV 94 MCH 30 MCHC 32 RDW 16.5 H Plt Count 229 Lymph % (Auto) 9.1 L [place] % (Auto) 5.2 Eos % (Auto) 8.4 H Baso % (Auto) 0.8 Lymph # 0.9 L [place] # 0.5 Eos # 0.9 H Baso # 0.1 Seg Neutrophils % 76.5 H Seg Neutrophils # 7.9 H Sodium 131 L Potassium 4.2 Chloride 86.6 L Carbon Dioxide 22 Anion Gap 27 BUN 33 H Creatinine 9.7 H Estimated GFR 7 BUN/Creatinine Ratio 3 Glucose 328 H Calcium 10.1 Troponin T 0.102 H* Triglycerides 150 H Cholesterol 141 LDL Cholesterol Direct 85 HDL Cholesterol 31 L Cholesterol/HDL Ratio 4.54 - EKG Data -: EKG Interpreted by [place] EKG shows normal: sinus rhythm, axis, QRS complexes, ST-T waves Rate: normal - EKG Data 12/11/19 02:30 EKG obtained 0208 EKG G interpreted by nv Normal sinus rhythm rate 84 bpm normal axis prolonged QTC positive PVC - Radiology Data Radiology results: report reviewed According to radiology impression chest 1 view AP portable chest diminished lung volumes with mild vascular congestion, upon my evaluation, poor inspiratory effort seen - Medical Decision Making This is a 59-year-old male with history of end-stage renal disease obesity who p resents with chest wall pain. I do not suspect ACS pericarditis or pulmonary embolism. He has exquisite tenderness upon palpation. He has pain when he changes position. I have prescribed Percocet. Critical care attestation.: If time is entered above; I have spent that time in minutes in the direct care of this critically ill patient, excluding procedure time. ED Disposition Clinical Impression: Chest wall pain Disposition: - TO HOME OR SELFCARE Is pt being admited?: No Does the pt Need Aspirin: No Condition: Stable Instructions: Chest Pain (ED) Prescriptions: oxyCODONE /ACETAMINOPHEN [Percocet 5/325] 1 tab PO Q6HR PRN #10 tablet PRN Reason: Pain
[2019-12-11 03:21] VITALS: BP 134/68
--- NOTE | 2019-12-11 03:26 | XRay Report ---
CHEST 1 VIEW INDICATION: Chest Pain. COMPARISON: 09/16/2019 FINDINGS: Support devices: Dialysis catheter unchanged. Heart: Stable cardiomegaly. Lungs/Pleura: Diminished lung volumes. Mild vascular congestion. Additional findings: None. IMPRESSION: Diminished lung volumes with mild vascular congestion. Signer Name: Rufino Miller MD Signed: 12/11/2019 3:22 AM Workstation Name: [id number]
[2019-12-11] MEDS ORDERED: HYDROmorphone 1 MG/1 ML INJ IM ONE (04:17)
[2019-12-11] MEDS ORDERED: IPRATROPIUM 0.02% NEBU 2.5 ML IH ONE (05:01)
[2019-12-11] MEDS ORDERED: ALBUTEROL 2.5 MG/3 ML NEBU IH ONE (05:01)
== END 2019-12-11 04:55 | disposition home or self-care (01) ==
LOC: ED 22:37
DX: R07.89 Other chest pain (principal); I10 Essential (primary) hypertension; E11.9 Type 2 diabetes mellitus without complications; K21.9 Gastro-esophageal reflux disease without esophagitis; J45.909 Unspecified asthma, uncomplicated; Z79.4 Long term (current) use of insulin; Z79.899 Other long term (current) drug therapy; Z88.6 Allergy status to analgesic agent; Z98.890 Other specified postprocedural states
CPT/HCPCS: 36415; 71045; 80048; 80061; 84484; 85025; 93005; 96372; 99284; J1170

== ENCOUNTER 2020-10-16 13:48 | Inpatient (IN) | payer MEDICARE ==
[2020-10-16] MEDS ORDERED: ACETAMINOPHEN 325 MG TAB PO ONE (15:18)
--- NOTE | 2020-10-16 15:20 | Event Note ---
Date: 10/16/20 Medical screening examination note: 60-year-old gentleman, with a history of end-stage renal disease on hemodialysis, morbid obesity, presenting to the ER today with supraumbilical abdominal pain, induration, firmness and discomfort. It is slightly worsened over the past few days. He received 2 hours of hemodialysis today. Examination shows a circular shaped, 10 x 10 cm indurated and tender mid ventral lesion, suspicious for ventral hernia. Check appropriate laboratory studies, noncontrast CT scan of the abdomen pelvis to better delineate, give acetaminophen for pain, and reassess
[2020-10-16 16:12] LABS: Basophils # (Auto) 0.1 K/mm3 (0.0-0.1); Basophils % (Auto) 0.8 % (0.0-1.8); Eosinophils # (Auto) 0.6 K/mm3 (0.0-0.4); Eosinophils % (Auto) 7.2 % (0.0-4.3); Hematocrit 27.8 % (35.5-45.6); Hemoglobin 9.4 gm/dl (11.8-15.2); Lymphocytes # (Auto) 0.7 K/mm3 (1.2-5.4); Lymphocytes % (Auto) 8.6 % (13.4-35.0); Mean Corpuscular HGB Conc 34 % (32-34); Mean Corpuscular Volume 91 fl (84-94); Monocytes # (Auto) 0.5 K/mm3 (0.0-0.8); Monocytes % (Auto) 6.6 % (0.0-7.3); Platelet Count 243 K/mm3 (140-440); Red Blood Count 3.06 M/mm3 (3.65-5.03); Red Cell Distribution Width 16.5 % (13.2-15.2)
--- NOTE | 2020-10-16 16:30 | Cat Scan Report ---
CT ABDOMEN AND PELVIS WITHOUT CONTRAST INDICATION / CLINICAL INFORMATION: ventral abdominal wall pain. TECHNIQUE: Axial CT images were obtained through the abdomen and pelvis without IV contrast. All CT scans at this location are performed using CT dose reduction for ALARA by means of automated exposure control. COMPARISON: None available. FINDINGS: FINDINGS: Lung bases are clear of acute consolidation. The liver, gallbladder, pancreas, spleen, and adrenals a re unremarkable. Unremarkable unenhanced appearance of the kidneys. No hydronephrosis. Bladder is unr emarkable. Prostate is not enlarged. Supraumbilical ventral abdominal wall hernia measures 12.8 cm transversely, 7.6 cm in AP dimension, a nd 9.6 cm in craniocaudal dimension. The mouth of the hernia measures up to 3.4 cm in both AP and tra nsverse dimensions. Within the hernia sac, there is moderate fluid and inflammatory fat stranding. No bowel is seen extending into the hernia sac. There is also inflammatory stranding along the anterior abdomen near the mouth of the hernia. Small hiatal hernia. Small bowel and colon demonstrate no evidence of mechanical obstruction or infla mmation. Normal appendix. No intraperitoneal free air. No adenopathy. No acute osseous findings. Multilevel thoracolumbar spond ylosis with prominent Schmorl's nodes seen at the superior endplate of T12 and L1. IMPRESSION: 1. Moderate to large ventral abdominal hernia contains fluid and inflamed fat, concerning for strangu lation. No bowel is within the hernia sac. 2. Other incidental findings as above. Signer Name: Choco Arzate MD Signed: 10/16/2020 4:26 PM Workstation Name: [id number]
[2020-10-16 16:32] LABS: Calcium 9.5 mg/dL (8.4-10.2)
[2020-10-16] MEDS ORDERED: PIPERACILLIN/TAZOBACTAM 3.375 3.375 GM/50 ML BAG IV ONE (16:33)
--- NOTE | 2020-10-16 16:45 | Emergency Department Report ---
ED Abdominal Pain HPI - General Chief Complaint: Abdominal Pain Stated Complaint: ABD PAIN Time Seen by Provider: 10/16/20 16:31 Source: patient, EMS Mode of arrival: Stretcher Limitations: Physical Limitation - History of Present Illness Initial Comments: Patient is 60 years old male with history of end-stage renal disease on hemodialysis. Last dialysis today. Patient presented to the ER complaining of periumbilical abdominal pain and swelling patient stated that the swelling has been going on for approximately 1 year however since yesterday. Became more tender. Patient denied any fever or chills. Patient stated that his nauseated but no vomiting. MD Complaint: abdominal pain -: This morning Location: periumbilical Migration to: no migration Severity: severe Severity scale (0 -10): 8 Quality: fullness, sharp, dull Associated Symptoms: nausea - Related Data Home Medications Medication Instructions Recorded Confirmed Last Taken Insulin Detemir [Levemir Flextouch] 20 unit SQ BID 08/09/19 08/09/19 1 Day Ago ~09/15/19 Metoprolol Succinate [[place] 50 mg PO DAILY 08/09/19 08/09/19 1 Day Ago Sprinkle] ~09/15/19 Montelukast [Singulair] 10 mg PO QPM 08/09/19 08/09/19 Unknown Omeprazole Magnesium [PriLOSEC Otc] 40 mg PO QDAY 08/09/19 08/09/19 1 Day Ago ~09/15/19 Simvastatin 40 mg PO QHS 08/09/19 08/09/19 1 Day Ago ~09/15/19 Previous Rx's Medication Instructions Recorded Last Taken Type ALBUTEROL NEB's [Proventil 0.083% 2.5 mg IH Q4HRT PRN nebu 09/17/19 Unknown Rx NEBS] Acetaminophen [Acetaminophen TAB] 650 mg PO Q4H PRN tablet 09/17/19 Unknown Rx Albuterol Mdi (or & Nicu Only) 2 puff IH QID PRN #1 09/17/19 Unknown Rx [ProAir HFA Inhaler] Amlodipine Besylate [Norvasc] 10 mg PO DAILY #30 09/17/19 Unknown Rx HYDROcodone/APAP 5-325 [[place] 2 each PO Q6H PRN #10 tablet 09/17/19 Unknown Rx 5-325 mg TAB] Pantoprazole [Protonix TAB] 40 mg PO QDAY tablet 09/17/19 Unknown Rx Zolpidem [Ambien] 5 mg PO QHS PRN tablet 09/17/19 Unknown Rx oxyCODONE /ACETAMINOPHEN [Percocet 1 tab PO Q6HR PRN #10 tablet 12/11/19 Unknown Rx 5/325] Allergies Allergy/AdvReac Type Severity Reaction Status Date / Time morphine Allergy Rash Verified 08/09/19 07:24 ED Review of Systems ROS: Stated complaint: ABD PAIN Other details as noted in HPI Comment: All other systems reviewed and negative Constitutional: denies: chills, fever Respiratory: denies: cough, shortness of breath, SOB with exertion, SOB at rest Cardiovascular: denies: chest pain, palpitations Gastrointestinal: abdominal pain, nausea. denies: vomiting, diarrhea, constipation, hematemesis Musculoskeletal: denies: back pain Neurological: denies: headache, weakness, numbness, paresthesias ED Past Medical Hx - Past Medical History Hx Hypertension: Yes Hx Diabetes: Yes Hx GERD: Yes Hx Renal Disease: Yes (ESRD M,W,F) Hx Asthma: Yes Additional medical history: Hypercholesterolemia, obstructive sleep apnea, GERD - Surgical History Additional Surgical History: Left chest permacath - Social History Smoking Status: Never Smoker - Medications Home Medications: Home Medications Medication Instructions Recorded Confirmed Last Taken Type Insulin Detemir [Levemir Flextouch] 20 unit SQ BID 08/09/19 08/09/19 1 Day Ago History ~09/15/19 Metoprolol Succinate [[place] 50 mg PO DAILY 08/09/19 08/09/19 1 Day Ago History Sprinkle] ~09/15/19 Montelukast [Singulair] 10 mg PO QPM 08/09/19 08/09/19 Unknown History Omeprazole Magnesium [PriLOSEC Otc] 40 mg PO QDAY 08/09/19 08/09/19 1 Day Ago History ~09/15/19 Simvastatin 40 mg PO QHS 08/09/19 08/09/19 1 Day Ago History ~09/15/19 ALBUTEROL NEB's [Proventil 0.083% 2.5 mg IH Q4HRT PRN nebu 09/17/19 Unknown Rx NEBS] Acetaminophen [Acetaminophen TAB] 650 mg PO Q4H PRN tablet 09/17/19 Unknown Rx Albuterol Mdi (or & Nicu Only) 2 puff IH QID PRN #1 09/17/19 Unknown Rx [ProAir HFA Inhaler] Amlodipine Besylate [Norvasc] 10 mg PO DAILY #30 09/17/19 Unknown Rx HYDROcodone/APAP 5-325 [[place] 2 each PO Q6H PRN #10 tablet 09/17/19 Unknown Rx 5-325 mg TAB] Pantoprazole [Protonix TAB] 40 mg PO QDAY tablet 09/17/19 Unknown Rx Zolpidem [Ambien] 5 mg PO QHS PRN tablet 09/17/19 Unknown Rx oxyCODONE /ACETAMINOPHEN [Percocet 1 tab PO Q6HR PRN #10 tablet 12/11/19 U nknown Rx 5/325] ED Physical Exam - General Limitations: Physical Limitation General appearance: alert, in no apparent distress - Head Head exam: Present: atraumatic, normocephalic, normal inspection - Eye Eye exam: Present: normal appearance, PERRL - ENT ENT exam: Present: normal exam, normal orophraynx, mucous membranes moist - Neck Neck exam: Present: normal inspection, full ROM. Absent: tenderness, meningismus - Respiratory Respiratory exam: Present: normal lung sounds bilaterally - Cardiovascular Cardiovascular Exam: Present: regular rate, normal rhythm, normal heart sounds - GI/Abdominal GI/Abdominal exam: Present: soft, tenderness, normal bowel sounds, hernia (Periumbilical ventral hernia, tender to palpation, irreducible.). Absent: distended, guarding, rebound, rigid - Extremities Exam Extremities exam: Present: normal inspection - Back Exam Back exam: Present: normal inspection, full ROM. Absent: CVA tenderness (R), CVA tenderness (L) - Neurological Exam Neurological exam: Present: alert, oriented X3, CN II-XII intact ED Course Vital Signs 10/16/20 10/16/20 15:31 16:03 Pulse Rate 71 Respiratory 19 18 Rate O2 Sat by Pulse 95 Oximetry ED Medical Decision Making - Lab Data Result diagrams: 10/16/20 15:46 10/16/20 15:46 - Radiology Data Radiology results: report reviewed - Medical Decision Making Patient is 60 years old male with history of end-stage renal disease on hemodialysis. Last dialysis today. Patient presented to the ER complaining of periumbilical abdominal pain and swelling patient stated that the swelling has been going on for approximately 1 year however since yesterday. Became more tender. Patient denied any fever or chills. Patient stated that his nauseated but no vomiting. Patient CT scan abdomen and pelvis showed a ventral hernia with fat and inflammation concerning for strangulation. Patient received Zosyn, fentanyl and Zofran. I discussed the patient with Dr. Chavez's, surgeon on-call he advised admit the patient to the hospitalist keep patient n.p.o. after midnight for surgery in the morning. I discussed the patient with Dr Russo, he agreed to admit the patient to medical service for further management. Critical Care Time: Yes Critical care time in (mins) excluding proc time.: 30 Critical care attestation.: If time is entered above; I have spent that time in minutes in the direct care of this critically ill patient, excluding procedure time. ED Disposition Clinical Impression: End stage renal disease, Strangulated ventral hernia Disposition: 09 OP ADMIT IP TO THIS HOSP Is pt being admited?: Yes Condition: Stable
[2020-10-16] MEDS ORDERED: ONDANSETRON 4 MG/2 ML INJ IV ONE (16:46)
[2020-10-16] MEDS ORDERED: fentaNYL 250 MCG/5 ML INJ IV ONE (16:46)
--- NOTE | 2020-10-16 16:55 | History and Physical Report ---
History of Present Illness Chief complaint: I have pain in my stomach History of present illness: 60 YO Male with ESRD on HD(M, W,F), HTN, RUTHIE, DM, HLD, Obesity Hypoventilation Syndrome, CHF presents to ED for evaluation. Pt reports "I have pain in my stomach". Patient states that he has experienced abdominal pain intermittently over the past 1 year with acutely worsening symptoms over the past 1 day. Patient states that his pain is 8/10, constant, sharp, localized to the periumbilical region, nonradiating, associated with nausea, worsened with palpation. EMS was notified and upon arrival the patient was found to be in distress and subsequently transported to [facility] for further care and evaluation of the aforementioned symptoms. The patient was seen and evaluated in the emergency department. All lab and imaging studies reviewed. Patient underwent CT scan of the abdomen pelvis and was found to have evidence of strangulated bowel ulceration with periumbilical hernia. Surgical team consulted. Patient a dmitted to surgical floor due to increased risk of worsening symptoms. Patient treated with IV fluid resuscitation therapy, pain control. Surgical team consulted in ED. Patient denies fever, chills, chest pain, palpitation, productive cough, skin rash, recent ill contacts, or known exposure to COVID-19. Prior admission on 09/16/2019 reviewed. All medication listed at time of admission has been reconciled. Past History Past Medical History: diabetes, ESRD, GERD, hypertension Past Surgical History: Other (Dialysis access) Social history: single Family history: diabetes, hypertension Medications and Allergies Allergies Allergy/AdvReac Type Severity Reaction Status Date / Time morphine Allergy Rash Verified 08/09/19 07:24 Home Medications Medication Instructions Recorded Confirmed Last Taken Type Insulin Detemir [Levemir Flextouch] 20 unit SQ BID 08/09/19 08/09/19 1 Day Ago History ~09/15/19 Metoprolol Succinate [[place] 50 mg PO DAILY 08/09/19 08/09/19 1 Day Ago History Sprinkle] ~09/15/19 Montelukast [Singulair] 10 mg PO QPM 08/09/19 08/09/19 Unknown History Omeprazole Magnesium [PriLOSEC Otc] 40 mg PO QDAY 08/09/19 08/09/19 1 Day Ago History ~09/15/19 Simvastatin 40 mg PO QHS 08/09/19 08/09/19 1 Day Ago History ~09/15/19 ALBUTEROL NEB's [Proventil 0.083% 2.5 mg IH Q4HRT PRN nebu 09/17/19 Unknown Rx NEBS] Acetaminophen [Acetaminophen TAB] 650 mg PO Q4H PRN tablet 09/17/19 Unknown Rx Albuterol Mdi (or & Nicu Only) 2 puff IH QID PRN #1 09/17/19 Unknown Rx [ProAir HFA Inhaler] Amlodipine Besylate [Norvasc] 10 mg PO DAILY #30 09/17/19 Unknown Rx HYDROcodone/APAP 5-325 [[place] 2 each PO Q6H PRN #10 tablet 09/17/19 Unknown Rx 5-325 mg TAB] Pantoprazole [Protonix TAB] 40 mg PO QDAY tablet 09/17/19 Unknown Rx Zolpidem [Ambien] 5 mg PO QHS PRN tablet 09/17/19 Unknown Rx oxyCODONE /ACETAMINOPHEN [Percocet 1 tab PO Q6HR PRN #10 tablet 12/11/19 Unknown Rx 5/325] Active Meds: Active Medications Fentanyl (Fentanyl 250 Mcg/5 Ml Inj) 50 mcg IV ONCE ONE Stop: 10/16/20 16:47 Piperacillin Sod/Tazobactam Sod (Zosyn/Ns 3.375gm/50ml) 3.375 gm in 50 mls @ 100 mls/hr IV ONCE ONE; Protocol Stop: 10/16/20 17:02 Review of Systems Constitutional: no weight loss, no weight gain, no fever, no chills Ears, nose, mouth and throat: no ear pain, no tinnitis, no decreased hearing, no nose pain Cardiovascular: no chest pain, no orthopnea, no rapid/irregular heart beat, no edema, no syncope Respiratory: no cough, no hemoptysis, no shortness of breath Gastrointestinal: abdominal pain, nausea, no constipation, no BRBPR, no melena, no hematochezia Genitourinary Male: no hematuria, no flank pain, no discharge, no urinary frequency, no urinary hesitancy Rectal: no pain, no incontinence, no bleeding Musculoskeletal: no neck stiffness, no neck pain, no arm numbness/tingling, no low back pain Integumentary: no rash, no pruritis, no redness, no sores, no wounds Neurological: no transient paralysis, no parathesias, no numbness, no tingling Psychiatric: no anxiety, no memory loss, no change in sleep habits, no insomnia Endocrine: no cold intolerance, no heat intolerance, no excessive thirst, no polydipsia, no polyuria Hematologic/Lymphatic: no easy bruising, no easy bleeding Allergic/Immunologic: no allergic rhinitis, no wheezing Exam - Constitutional Vitals: Temp Pulse Resp BP Pulse Ox 71 18 95 10/16/20 15:31 10/16/20 16:03 10/16/20 15:31 General appearance: Present: mild distress, obese - EENT Eyes: Present: PERRL ENT: hearing intact, clear oral mucosa - Neck Neck: Present: supple, normal ROM - Respiratory Respiratory effort: normal Respiratory: bilateral: CTA - Cardiovascular Heart Sounds: Present: S1 & S2. Absent: rub, click - Extremities Extremities: pulses symmetrical, No edema Peripheral Pulses: within normal limits - Abdominal General gastrointestinal: Present: soft, tender, hypoactive bowel sounds, hernia Localized gastrointestinal: tender: epigastric periumbilical, guarding: epigastric periumbilical - Integumentary Integumentary: Present: clear, warm, dry - Musculoskeletal Musculoskeletal: gait normal, strength equal bilaterally - Psychiatric Psychiatric: appropriate mood/affect, intact judgment & insight - Neurologic Neurologic: CNII-XII intact, moves all extremities Results - Labs CBC & Chem 7: 10/16/20 15:46 10/16/20 15:46 Labs: Abnormal lab results 10/16/20 10/16/20 Range/Units 15:46 15:46 RBC 3.06 L (3.65-5.03) M/mm3 Hgb 9.4 L (11.8-15.2) gm/dl Hct 27.8 L (35.5-45.6) % RDW 16.5 H (13.2-15.2) % Lymph % (Auto) 8.6 L (13.4-35.0) % Eos % (Auto) 7.2 H (0.0-4.3) % Lymph # (Auto) 0.7 L (1.2-5.4) K/mm3 Eos # (Auto) 0.6 H (0.0-0.4) K/mm3 Seg Neutrophils % 76.8 H (40.0-70.0) % Potassium 3.1 L (3.6-5.0) mmol/L Chloride 96.1 L (98-107) mmol/L BUN 30 H (9-20) mg/dL Creatinine 8.5 H (0.8-1.3) mg/dL Assessment and Plan - Patient Problems (1) Strangulated ventral hernia Current Visit: No Status: Acute Plan to address problem: CT Scan Abdomen/Pelvis, Serial abdominal exam, bowel rest, surgical team consulted, Pt is pending surgical intervention as per surgical team. (2) Peritonitis Current Visit: Yes Status: Acute Plan to address problem: CT Scal abdomen pelvis, IV antibiotic therapy, bowel rest, IVF resuscitation therapy, (3) End stage renal disease Current Visit: No Status: Acute Plan to address problem: Dialysis as per renal team, nephrology team consulted. (4) Morbid obesity with BMI of 50.0-59.9, adult Current Visit: No Status: Acute Plan to address problem: Balanced diet, increased activity at discharge, outpatient bariatric surgery F/U, Outpatient pulmonary F/U for sleep study (5) DVT prophylaxis Current Visit: Yes Status: Acute Plan to address problem: SCD to BLE while in bed, Pt is ambulatory
[2020-10-16] MEDS ORDERED: fentaNYL 100 MCG/2 ML INJ IV SCH (17:00)
[2020-10-16] MEDS ORDERED: MORPHINE 2 MG/1 ML INJ IV PRN (17:39)
[2020-10-16] MEDS ORDERED: ACETAMINOPHEN 325 MG TAB PO PRN (18:00)
[2020-10-16] MEDS ORDERED: ONDANSETRON 4 MG/2 ML INJ IV PRN (18:00)
[2020-10-16] MEDS ORDERED: ZOLPIDEM 5 MG TAB PO PRN (18:00)
[2020-10-16] MEDS: INSULIN REGULAR, HUMAN 100 UNITS/1 ML SUB-Q SCH (20:13)
[2020-10-16] MEDS: DEXTROSE 50% IN WATER (25GM) 50 ML SYRINGE IV PRN ×2 (20:19→21:40)
[2020-10-16] MEDS ORDERED: CEFEPIME/NS 2 GM/100 ML 2 GM/100 ML BAG IV SCH (21:00)
[2020-10-16] MEDS ORDERED: CEFEPIME/NS 1 GM/100 ML 1 GM/100 ML BAG IV SCH (21:00)
[2020-10-16] MEDS ORDERED: metroNIDAZOLE/NS 500 MG/100 ML 500 MG/100 ML BAG IV SCH (21:00)
[2020-10-16] MEDS ORDERED: diphenhydrAMINE 50 MG/ML VIAL IV ONE (21:22)
[2020-10-16] MEDS: MONTELUKAST 10 MG TAB PO SCH (21:39)
[2020-10-16] MEDS ORDERED: FAMOTIDINE 20 MG/2 ML INJ IV SCH (22:00)
[2020-10-16] MEDS ORDERED: NON-FORMULARY EACH (Simvastatin [Simvastatin] 40 MG Tablet) PO SCH (22:00)
[2020-10-16] MEDS: FAMOTIDINE 20 MG/2 ML INJ IV SCH (22:21)
[2020-10-16] MEDS: PRAVASTATIN 80 MG TAB PO SCH (22:41)
[2020-10-17] MEDS: INSULIN REGULAR, HUMAN 100 UNITS/1 ML SUB-Q SCH ×4 (00:56→19:26)
[2020-10-17] MEDS: ALBUTEROL 2.5 MG/3 ML NEBU IH PRN (04:19)
[2020-10-17] MEDS ORDERED: diphenhydrAMINE 25 MG/10 ML ORAL LIQUID PO ONE (06:36)
[2020-10-17] MEDS ORDERED: diphenhydrAMINE 25 MG CAP PO SCH (07:00)
[2020-10-17 07:35] LABS: Hematocrit 33.4 % (35.5-45.6); Mean Corpuscular HGB Conc 33 % (32-34); Mean Corpuscular Volume 93 fl (84-94); Platelet Count 270 K/mm3 (140-440); Red Cell Distribution Width 17.2 % (13.2-15.2)
[2020-10-17 08:30] LABS: Calcium 9.3 mg/dL (8.4-10.2)
--- NOTE | 2020-10-17 08:31 | Progress Note ---
Assessment and Plan Assessment and plan: Strangulated ventral hernia. Peritonitis Sepsis. Present on admission. Patient meets criteria given the leukocytosis, tachycardia and diagnosis of peritonitis. ESRD. Morbid obesity. 10/17/2020. Continue cefepime and Flagyl. Await surgery recommendations. Nephrology consultation for hemodialysis. History Interval history: No new issues overnight Hospitalist Physical - Constitutional Vitals: Temp Pulse Resp BP Pulse Ox 98.3 F 83 18 149/61 95 10/16/20 22:57 10/17/20 05:21 10/17/20 05:21 10/17/20 05:21 10/17/20 05:21 General appearance: Present: no acute distress, obese - EENT Eyes: Present: PERRL, EOM intact ENT: hearing intact, clear oral mucosa, dentition normal - Neck Neck: Present: supple, normal ROM - Respiratory Respiratory effort: normal Respiratory: bilateral: CTA - Cardiovascular Rhythm: regular Heart Sounds: Present: S1 & S2. Absent: gallop, rub - Extremities Extremities: no ischemia, No edema, Full ROM - Abdominal General gastrointestinal: soft, non-tender, non-distended, normal bowel sounds - Integumentary Integumentary: Present: clear, warm, dry - Neurologic Neurologic: CNII-XII intact, moves all extremities Results - Labs CBC & Chem 7: 10/17/20 07:08 10/16/20 15:46 Labs: Laboratory Last Values WBC 12.9 K/mm3 (4.5-11.0) H 10/17/20 07:08 RBC 3.60 M/mm3 (3.65-5.03) L 10/17/20 07:08 Hgb 11.0 gm/dl (11.8-15.2) L 10/17/20 07:08 Hct 33.4 % (35.5-45.6) L 10/17/20 07:08 MCV 93 fl (84-94) 10/17/20 07:08 MCH 30 pg (28-32) 10/17/20 07:08 MCHC 33 % (32-34) 10/17/20 07:08 RDW 17.2 % (13.2-15.2) H 10/17/20 07:08 Plt Count 270 K/mm3 (140-440) 10/17/20 07:08 Lymph % (Auto) 8.6 % (13.4-35.0) L 10/16/20 15:46 [place] % (Auto) 6.6 % (0.0-7.3) 10/16/20 15:46 Eos % (Auto) 7.2 % (0.0-4.3) H 10/16/20 15:46 Baso % (Auto) 0.8 % (0.0-1.8) 10/16/20 15:46 Lymph # (Auto) 0.7 K/mm3 (1.2-5.4) L 10/16/20 15:46 [place] # (Auto) 0.5 K/mm3 (0.0-0.8) 10/16/20 15:46 Eos # (Auto) 0.6 K/mm3 (0.0-0.4) H 10/16/20 15:46 Baso # (Auto) 0.1 K/mm3 (0.0-0.1) 10/16/20 15:46 Seg Neutrophils % [employer] 10/17/20 07:08 Seg Neutrophils # 6.3 K/mm3 (1.8-7.7) 10/16/20 15:46 Sodium 138 mmol/L (137-145) 10/16/20 15:46 Potassium 3.1 mmol/L (3.6-5.0) L 10/16/20 15:46 Chloride 96.1 mmol/L (98-107) L 10/16/20 15:46 Carbon Dioxide 30 mmol/L (22-30) 10/16/20 15:46 Anion Gap 15 mmol/L 10/16/20 15:46 BUN 30 mg/dL (9-20) H 10/16/20 15:46 Creatinine 8.5 mg/dL (0.8-1.3) H 10/16/20 15:46 Estimated GFR 8 ml/min 10/16/20 15:46 BUN/Creatinine Ratio 4 % 10/16/20 15:46 Glucose 83 mg/dL (75-100) 10/16/20 15:46 POC Glucose 134 mg/dL (70-105) H 10/17/20 08:13 Calcium 9.5 mg/dL (8.4-10.2) 10/16/20 15:46 Magnesium 2.00 mg/dL (1.7-2.3) 10/16/20 15:46 Total Creatine Kinase 148 units/L (55-170) 10/16/20 15:46 Microbiology: Microbiology 10/16/20 16:55 Peripheral/Venous Blood Culture - Preliminary Culture in Progress 10/16/20 16:55 Peripheral/Venous Blood Culture - Preliminary Culture in Progress Wallace/IV: Voiding Method Toilet Active Medications - Current Medications Current Medications: Generic Name Dose Route Start Last Admin Trade Name Freq PRN Reason Stop Dose Admin Acetaminophen 650 mg 10/16/20 18:00 Acetaminophen 325 Mg Tab PO Q4H PRN Pain MILD(1-3)/Fever >100.5/GUERRERO Albuterol 2.5 mg 10/16/20 18:30 10/17/20 04:19 Albuterol 2.5 Mg/3 Ml Nebu IH 2.5 mg Q4HRT PRN Administration Shortness Of Breath Amlodipine Besylate 10 mg 10/17/20 10:00 Amlodipine 5 Mg Tab PO DAILY ED Dextrose 50 ml 10/16/20 18:00 10/16/20 21:40 Dextrose 50% In Water (25gm) 50 Ml Syringe IV 50 ml Q30MIN PRN Administration Hypoglycemia Protocol Diphenhydramine HCl 25 mg 10/17/20 07:00 10/17/20 07:35 Diphenhydramine 25 Mg Cap PO 10/17/20 12:00 25 mg ONCE ED Administration Famotidine 10 mg 10/16/20 22:00 10/16/20 22:21 Famotidine 20 Mg/2 Ml Inj IV 10 mg BID ED Administration Hydromorphone HCl 0.5 mg 10/16/20 18:00 Hydromorphone 1 Mg/1 Ml Inj IV Q3H PRN Pain , Severe (7-10) Metronidazole 500 mg in 100 mls @ 100 mls/hr 10/16/20 21:00 10/17/20 03:55 Flagyl 500 Mg/100 Ml IV Infused Q8H ED Infusion Protocol Cefepime HCl 2 gm in 100 mls @ 200 mls/hr 10/17/20 10:00 Cefepime/Ns 2 Gm/100 Ml IV Q24H ED Protocol Insulin Human Regular 0 units 10/16/20 18:00 10/17/20 06:32 Insulin Regular, Human 100 Units/1 Ml SUB-Q Not Given Q6H ED Protocol Metoprolol Succinate 50 mg 10/17/20 10:00 Metoprolol Succinate Xl 50 Mg Tab PO QDAY [facility] Montelukast Sodium 10 mg 10/16/20 18:00 10/16/20 21:39 Montelukast 10 Mg Tab PO Not Given QPM [facility] Morphine Sulfate 2 mg 10/16/20 17:39 Morphine 2 Mg/1 Ml Inj IV Q4H PRN Pain, Moderate (4-6) Ondansetron HCl 4 mg 10/16/20 18:00 Ondansetron 4 Mg/2 Ml Inj IV Q8H PRN Nausea And Vomiting Pantoprazole Sodium 40 mg 10/17/20 10:00 Pantoprazole 40 Mg Tab PO QDAY [facility] Pravastatin Sodium 80 mg 10/16/20 22:00 10/16/20 22:41 Pravastatin 80 Mg Tab PO 80 mg QHS ED Administration Sodium Chloride 10 ml 10/16/20 22:00 10/16/20 22:22 Sodium Chloride 0.9% 10 Ml Flush Syringe IV 10 ml BID ED Administration Sodium Chloride 10 ml 10/16/20 18:00 Sodium Chloride 0.9% 10 Ml Flush Syringe IV PRN PRN LINE FLUSH Zolpidem Tartrate 5 mg 10/16/20 18:00 Zolpidem 5 Mg Tab PO QHS PRN Insomnia
[2020-10-17] MEDS ORDERED: CEFEPIME/NS 2 GM/100 ML 2 GM/100 ML BAG IV SCH ×2 (10:00→13:00)
[2020-10-17] MEDS ORDERED: METOPROLOL SUCCINATE 50 MG PO SCH (10:00)
--- NOTE | 2020-10-17 10:13 | Consultation ---
History of Present Illness Consult date: 10/17/20 Reason for consult: abdominal pain - History of present illness History of present illness: 60 yo diabetic, non-compliant male who presents with right kinjal-umbilical pain secondary to an incarcerated hernia. The hernia does not contain bowel. Pt has been drinking despite being told to be NPO. He also has not allowed us to get an IV in. He last drank some water before 8 am. Pt states he underwent HD yesterday. Past History Past Medical History: diabetes, ESRD, GERD, hypertension Past Surgical History: Other (Dialysis access) Social history: single Family history: diabetes, hypertension Medications and Allergies Allergies Allergy/AdvReac Type Severity Reaction Status Date / Time morphine Allergy Rash Verified 08/09/19 07:24 Home Medications Medication Instructions Recorded Confirmed Last Taken Type Insulin Detemir [Levemir Flextouch] 20 unit SQ BID 08/09/19 08/09/19 1 Day Ago History ~09/15/19 Metoprolol Succinate [Kapspargo 50 mg PO DAILY 08/09/19 08/09/19 1 Day Ago History Sprinkle] ~09/15/19 Montelukast [Singulair] 10 mg PO QPM 08/09/19 08/09/19 Unknown History Omeprazole Magnesium [PriLOSEC Otc] 40 mg PO QDAY 08/09/19 08/09/19 1 Day Ago History ~09/15/19 Simvastatin 40 mg PO QHS 08/09/19 08/09/19 1 Day Ago History ~09/15/19 ALBUTEROL NEB's [Proventil 0.083% 2.5 mg IH Q4HRT PRN nebu 09/17/19 Unknown Rx NEBS] Acetaminophen [Acetaminophen TAB] 650 mg PO Q4H PRN tablet 09/17/19 Unknown Rx Albuterol Mdi (or & Nicu Only) 2 puff IH QID PRN #1 09/17/19 Unknown Rx [ProAir HFA Inhaler] Amlodipine Besylate [Norvasc] 10 mg PO DAILY #30 09/17/19 Unknown Rx HYDROcodone/APAP 5-325 [[place] 2 each PO Q6H PRN #10 tablet 09/17/19 Unknown Rx 5-325 mg TAB] Pantoprazole [Protonix TAB] 40 mg PO QDAY tablet 09/17/19 Unknown Rx Zolpidem [Ambien] 5 mg PO QHS PRN tablet 09/17/19 Unknown Rx oxyCODONE /ACETAMINOPHEN [Percocet 1 tab PO Q6HR PRN #10 tablet 12/11/19 Unknown Rx 5/325] Active Meds: Active Medications Acetaminophen (Acetaminophen 325 Mg Tab) 650 mg PO Q4H PRN PRN Reason: Pain MILD(1-3)/Fever >100.5/GUERRERO Albuterol (Albuterol 2.5 Mg/3 Ml Nebu) 2.5 mg IH Q4HRT PRN PRN Reason: Shortness Of Breath Last Admin: 10/17/20 04:19 Dose: 2.5 mg Documented by: Amlodipine Besylate (Amlodipine 5 Mg Tab) 10 mg PO DAILY ED Dextrose (Dextrose 50% In Water (25gm) 50 Ml Syringe) 50 ml IV Q30MIN PRN; Protocol PRN Reason: Hypoglycemia Last Admin: 10/16/20 21:40 Dose: 50 ml Documented by: Diphenhydramine HCl (Diphenhydramine 25 Mg Cap) 25 mg PO ONCE ED Stop: 10/17/20 12:00 Last Admin: 10/17/20 07:35 Dose: 25 mg Documented by: Famotidine (Famotidine 20 Mg/2 Ml Inj) 10 mg IV BID ED Last Admin: 10/16/20 22:21 Dose: 10 mg Documented by: Hydromorphone HCl (Hydromorphone 1 Mg/1 Ml Inj) 0.5 mg IV Q3H PRN PRN Reason: Pain , Severe (7-10) Metronidazole (Flagyl 500 Mg/100 Ml) 500 mg in 100 mls @ 100 mls/hr IV Q8H ED; Protocol Last Infusion: 10/17/20 03:55 Dose: Infused Documented by: Cefepime HCl (Cefepime/Ns 2 Gm/100 Ml) 2 gm in 100 mls @ 200 mls/hr IV Q24H ED; Protocol Insulin Human Regular (Insulin Regular, Human 100 Units/1 Ml) 0 units SUB-Q Q6H ED; Protocol Last Admin: 10/17/20 06:32 Dose: Not Given Documented by: Metoprolol Succinate (Metoprolol Succinate Xl 50 Mg Tab) 50 mg PO QDAY ED Montelukast Sodium (Montelukast 10 Mg Tab) 10 mg PO QPM ED Last Admin: 10/16/20 21:39 Dose: Not Given Documented by: Morphine Sulfate (Morphine 2 Mg/1 Ml Inj) 2 mg IV Q4H PRN PRN Reason: Pain, Moderate (4-6) Ondansetron HCl (Ondansetron 4 Mg/2 Ml Inj) 4 mg IV Q8H PRN PRN Reason: Nausea And Vomiting Pantoprazole Sodium (Pantoprazole 40 Mg Tab) 40 mg PO QDAY [facility] Pravastatin Sodium (Pravastatin 80 Mg Tab) 80 mg PO QHS [facility] Last Admin: 10/16/20 22:41 Dose: 80 mg Documented by: Sodium Chloride (Sodium Chloride 0.9% 10 Ml Flush Syringe) 10 ml IV BID [facility] Last Admin: 10/16/20 22:22 Dose: 10 ml Documented by: Sodium Chloride (Sodium Chloride 0.9% 10 Ml Flush Syringe) 10 ml IV PRN PRN PRN Reason: LINE FLUSH Zolpidem Tartrate (Zolpidem 5 Mg Tab) 5 mg PO QHS PRN PRN Reason: Insomnia Review of Systems All systems: negative (none) Exam Vital Signs Pulse Resp Pulse Ox 71 19 95 10/16/20 15:31 10/16/20 15:31 10/16/20 15:31 - General physical appearance Positive: well developed, well nourished, no distress, no pain, obese - Eyes Positive: PERRL, normal occular movement - ENT Positive: normal pinna, normal nares, normal mucosa, no hearing loss, no congestion - Neck Positive: no masses, no bruits, trachea midline, no venous distension - Respiratory Positive: normal expansion, normal respiratory effort, clear to auscultation - Cardiovascular Rhythm: regular Heart Sounds: Present: S1 & S2. Absent: rub, click - Extremities Extremities: no ischemia, pulses symmetrical, No edema - Breasts Breasts: normal, no mass, no skin changes - Abdomen Abdomen: Present: soft, bowel sounds normal, other (There is a 6 cm incarcerated, non-tender hernia in the RUQ adjacent to the umbilicus.). Absent: distended Hernia: none - Genitourinary Male Genitourinary: normal Female Genitourinary: normal - Integumentary no rash, no growths, no abnormal pigmentation - Neurologic Neurologic: alert and oriented to time, place and person, motor strength and sensation are grossly intact - Musculoskeletal normal gait, normal posture - Psychiatric Psychiatric: appropriate mood/affect, intact judgment & insight Results - Labs 10/17/20 07:08 10/17/20 07:08 Abnormal lab results 10/16/20 10/16/20 10/16/20 Range/Units 15:46 15:46 20:12 WBC (4.5-11.0) K/mm3 RBC 3.06 L (3.65-5.03) M/mm3 Hgb 9.4 L (11.8-15.2) gm/dl Hct 27.8 L (35.5-45.6) % RDW 16.5 H (13.2-15.2) % Lymph % (Auto) 8.6 L (13.4-35.0) % Eos % (Auto) 7.2 H (0.0-4.3) % Lymph # (Auto) 0.7 L (1.2-5.4) K/mm3 Eos # (Auto) 0.6 H (0.0-0.4) K/mm3 Seg Neutrophils % 76.8 H (40.0-70.0) % Sodium (137-145) mmol/L Potassium 3.1 L (3.6-5.0) mmol/L Chloride 96.1 L (98-107) mmol/L BUN 30 H (9-20) mg/dL Creatinine 8.5 H (0.8-1.3) mg/dL Glucose (75-100) mg/dL POC Glucose 44 L (70-105) mg/dL 10/16/20 10/17/20 10/17/20 Range/Units 21:34 06:29 07:08 WBC 12.9 H (4.5-11.0) K/mm3 RBC 3.60 L (3.65-5.03) M/mm3 Hgb 11.0 L (11.8-15.2) gm/dl Hct 33.4 L (35.5-45.6) % RDW 17.2 H (13.2-15.2) % Lymph % (Auto) (13.4-35.0) % Eos % (Auto) (0.0-4.3) % Lymph # (Auto) (1.2-5.4) K/mm3 Eos # (Auto) (0.0-0.4) K/mm3 Seg Neutrophils % (40.0-70.0) % Sodium (137-145) mmol/L Potassium (3.6-5.0) mmol/L Chloride (98-107) mmol/L BUN (9-20) mg/dL Creatinine (0.8-1.3) mg/dL Glucose (75-100) mg/dL POC Glucose 67 L 123 H (70-105) mg/dL 10/17/20 10/17/20 Range/Units 07:08 08:13 WBC (4.5-11.0) K/mm3 RBC (3.65-5.03) M/mm3 Hgb (11.8-15.2) gm/dl Hct (35.5-45.6) % RDW (13.2-15.2) % Lymph % (Auto) (13.4-35.0) % Eos % (Auto) (0.0-4.3) % Lymph # (Auto) (1.2-5.4) K/mm3 Eos # (Auto) (0.0-0.4) K/mm3 Seg Neutrophils % (40.0-70.0) % Sodium 134 L (137-145) mmol/L Potassium (3.6-5.0) mmol/L Chloride 92.1 L (98-107) mmol/L BUN 36 H (9-20) mg/dL Creatinine 10.0 H (0.8-1.3) mg/dL Glucose 135 H (75-100) mg/dL POC Glucose 134 H (70-105) mg/dL Diabetes panel 10/16/20 10/17/20 Range/Units 15:46 07:08 Sodium 138 134 L (137-145) mmol/L Potassium 3.1 L 3.8 D (3.6-5.0) mmol/L Chloride 96.1 L 92.1 L (98-107) mmol/L Carbon Dioxide 30 28 (22-30) mmol/L BUN 30 H 36 H (9-20) mg/dL Creatinine 8.5 H 10.0 H (0.8-1.3) mg/dL Glucose 83 135 H (75-100) mg/dL Calcium 9.5 9.3 (8.4-10.2) mg/dL Calcium panel 10/16/20 10/17/20 Range/Units 15:46 07:08 Calcium 9.5 9.3 (8.4-10.2) mg/dL Pituitary panel 10/16/20 10/17/20 Range/Units 15:46 07:08 Sodium 138 134 L (137-145) mmol/L Potassium 3.1 L 3.8 D (3.6-5.0) mmol/L Chloride 96.1 L 92.1 L (98-107) mmol/L Carbon Dioxide 30 28 (22-30) mmol/L BUN 30 H 36 H (9-20) mg/dL Creatinine 8.5 H 10.0 H (0.8-1.3) mg/dL Glucose 83 135 H (75-100) mg/dL Calcium 9.5 9.3 (8.4-10.2) mg/dL Adrenal panel 10/16/20 10/17/20 Range/Units 15:46 07:08 Sodium 138 134 L (137-145) mmol/L Potassium 3.1 L 3.8 D (3.6-5.0) mmol/L Chloride 96.1 L 92.1 L (98-107) mmol/L Carbon Dioxide 30 28 (22-30) mmol/L BUN 30 H 36 H (9-20) mg/dL Creatinine 8.5 H 10.0 H (0.8-1.3) mg/dL Glucose 83 135 H (75-100) mg/dL Calcium 9.5 9.3 (8.4-10.2) mg/dL - Imaging CT scan - abdomen: report reviewed CT scan - pelvis: report reviewed Assessment and Plan - Patient Problems (1) Ventral hernia without obstruction or gangrene Current Visit: Yes Status: Acute Plan to address problem: 1) I educated pt about the importance of following nurses and doctor's instructions. 2) I educated pt regarding the need for an IV. 3) Will schedule for open repair of ventral hernia.
--- NOTE | 2020-10-17 12:38 | Consultation ---
History of Present Illness - Reason for Consult Consult date: 10/17/20 end stage renal disease Requesting physician: MARIA ISABEL LOMBARDI - History of Present Illness This is a 60 yo AA M with past medical history of hypertension, obesity, RUTHIE, Obesity hypoventilation syndrome, Type 2 DM, CHF, ESRD on HD on TTS schedule at [facility], who presents to [facility] ER with complaints of mid abdominal pain which has been gradually worsening in intensity for the last few months. Pain is localized to the periumbilical region, with intensity opf 8/10, nonradiating, associated with nausea, worsened with palpation. in ER Patient underwent CT scan of the abdomen pelvis and was found to have evidence of moderate to large ventral abdominal hernia containing fluid/inflamed fat, concerning for strangulation. Pt was admitted for further surgical evaluation. Pt's most recent HD was on 10/16, labs showed elevated BUN/Cr at 36/10mg/dl along with hypokalemia of 3.1. Renal consult is requested for management of ESRD/HD. pt denies SOB, CP, palpitations, dysuria, fever, chills, n/v/d. Past History Past Medical History: diabetes, ESRD, GERD, hypertension Past Surgical History: Other (Dialysis access) Social history: single Family history: diabetes, hypertension Medications and Allergies Allergies Allergy/AdvReac Type Severity Reaction Status Date / Time morphine Allergy Rash Verified 08/09/19 07:24 Home Medications Medication Instructions Recorded Confirmed Last Taken Type Insulin Detemir [Levemir Flextouch] 20 unit SQ BID 08/09/19 08/09/19 1 Day Ago History ~09/15/19 Metoprolol Succinate [Kapspargo 50 mg PO DAILY 08/09/19 08/09/19 1 Day Ago History Sprinkle] ~09/15/19 Montelukast [Singulair] 10 mg PO QPM 08/09/19 08/09/19 Unknown History Omeprazole Magnesium [PriLOSEC Otc] 40 mg PO QDAY 08/09/19 08/09/19 1 Day Ago History ~09/15/19 Simvastatin 40 mg PO QHS 08/09/19 08/09/19 1 Day Ago History ~09/15/19 ALBUTEROL NEB's [Proventil 0.083% 2.5 mg IH Q4HRT PRN nebu 09/17/19 Unknown Rx NEBS] Acetaminophen [Acetaminophen TAB] 650 mg PO Q4H PRN tablet 09/17/19 Unknown Rx Albuterol Mdi (or & Nicu Only) 2 puff IH QID PRN #1 09/17/19 Unknown Rx [ProAir HFA Inhaler] Amlodipine Besylate [Norvasc] 10 mg PO DAILY #30 09/17/19 Unknown Rx HYDROcodone/APAP 5-325 [[place] 2 each PO Q6H PRN #10 tablet 09/17/19 Unknown Rx 5-325 mg TAB] Pantoprazole [Protonix TAB] 40 mg PO QDAY tablet 09/17/19 Unknown Rx Zolpidem [Ambien] 5 mg PO QHS PRN tablet 09/17/19 Unknown Rx oxyCODONE /ACETAMINOPHEN [Percocet 1 tab PO Q6HR PRN #10 tablet 12/11/19 Unknown Rx 5/325] Active Meds: Active Medications Acetaminophen (Acetaminophen 325 Mg Tab) 650 mg PO Q4H PRN PRN Reason: Pain MILD(1-3)/Fever >100.5/GUERRERO Albuterol (Albuterol 2.5 Mg/3 Ml Nebu) 2.5 mg IH Q4HRT PRN PRN Reason: Shortness Of Breath Last Admin: 10/17/20 04:19 Dose: 2.5 mg Documented by: Amlodipine Besylate (Amlodipine 5 Mg Tab) 10 mg PO DAILY ED Dextrose (Dextrose 50% In Water (25gm) 50 Ml Syringe) 50 ml IV Q30MIN PRN; Protocol PRN Reason: Hypoglycemia Last Admin: 10/16/20 21:40 Dose: 50 ml Documented by: Famotidine (Famotidine 20 Mg/2 Ml Inj) 10 mg IV BID ED Last Admin: 10/16/20 22:21 Dose: 10 mg Documented by: Hydromorphone HCl (Hydromorphone 1 Mg/1 Ml Inj) 0.5 mg IV Q3H PRN PRN Reason: Pain , Severe (7-10) Cefepime HCl (Cefepime/Ns 2 Gm/100 Ml) 2 gm in 100 mls @ 200 mls/hr IV Q24H ED ; Protocol Metronidazole (Flagyl 500 Mg/100 Ml) 500 mg in 100 mls @ 100 mls/hr IV Q8H ED; Protocol Insulin Human Regular (Insulin Regular, Human 100 Units/1 Ml) 0 units SUB-Q Q6H [facility]; Protocol Last Admin: 10/17/20 06:32 Dose: Not Given Documented by: Metoprolol Succinate (Metoprolol Succinate Xl 50 Mg Tab) 50 mg PO QDAY [facility] Montelukast Sodium (Montelukast 10 Mg Tab) 10 mg PO QPM [facility] Last Admin: 10/16/20 21:39 Dose: Not Given Documented by: Morphine Sulfate (Morphine 2 Mg/1 Ml Inj) 2 mg IV Q4H PRN PRN Reason: Pain, Moderate (4-6) Ondansetron HCl (Ondansetron 4 Mg/2 Ml Inj) 4 mg IV Q8H PRN PRN Reason: Nausea And Vomiting Pantoprazole Sodium (Pantoprazole 40 Mg Tab) 40 mg PO QDAY [facility] Pravastatin Sodium (Pravastatin 80 Mg Tab) 80 mg PO QHS [facility] Last Admin: 10/16/20 22:41 Dose: 80 mg Documented by: Sodium Chloride (Sodium Chloride 0.9% 10 Ml Flush Syringe) 10 ml IV BID [facility] Last Admin: 10/16/20 22:22 Dose: 10 ml Documented by: Sodium Chloride (Sodium Chloride 0.9% 10 Ml Flush Syringe) 10 ml IV PRN PRN PRN Reason: LINE FLUSH Zolpidem Tartrate (Zolpidem 5 Mg Tab) 5 mg PO QHS PRN PRN Reason: Insomnia Review of Systems Constitutional: fatigue, weakness, malaise, poor appetite Gastrointestinal: abdominal pain Exam - Vital Signs Vital signs: Vital Signs Pulse Resp Pulse Ox 71 19 95 10/16/20 15:31 10/16/20 15:31 10/16/20 15:31 - General Appearance General appearance: well-developed, well-nourished, appears stated age, obese EENT: ATNC, PERRL, mucous membranes moist Neck: Present: neck supple Respiratory: Clear to Ascultation Heart: regular, S1S2 Gastrointestinal: Present: normoactive bowel sounds, obese, other (+ supraumbilical ventral hernia ) Integumentary: no rash, other (no edema ) Neurologic: no focal deficit, alert and oriented x3, strength 5/5, CN 3-12 intact Psychiatric: mood/affect appropriate, cooperative Results - Lab Results 10/17/20 07:08 10/17/20 07:08 Most recent lab results Calcium 9.3 mg/dL (8.4-10.2) 10/17/20 07:08 Magnesium 2.00 mg/dL (1.7-2.3) 10/16/20 15:46 Assessment and Plan - Patient Problems (1) Ventral hernia without obstruction or gangrene Current Visit: Yes Status: Acute Plan to address problem: appreciate surgery recommendations, plan for open repair of ventral hernia. (2) End stage renal disease Current Visit: No Status: Acute Plan to address problem: Currently without urgent indications for renal replacement therapy. Will resume routine HD on TTS schedule. (3) Hypertensive chronic kidney disease with stage 5 chronic kidney disease or end stage renal disease Current Visit: Yes Status: Acute Plan to address problem: monitor BP on current meds (4) Anemia in chronic kidney disease Current Visit: No Status: Chronic Plan to address problem: Hb at target, no further EPO needed at this time (5) Morbid obesity with BMI of 50.0-59.9, adult Current Visit: No Status: Acute
[2020-10-17] MEDS ORDERED: SODIUM CHLORIDE 0.9% 100 ML IV PRN (13:00)
[2020-10-17 13:02] LABS: Band Neutrophils # (Manual) 0.5 K/mm3; Total Cells Counted 100
[2020-10-17 13:03] LABS: Anisocytosis 1+; Giant Platelets Rare; Macrocytosis Few; Platelet Estimate Consistent w Auto
[2020-10-17] MEDS: METOPROLOL SUCCINATE XL 50 MG TAB PO SCH (13:51)
[2020-10-17] MEDS: amLODIPine 5 MG TAB PO SCH (13:51)
[2020-10-17] MEDS: PANTOPRAZOLE 40 MG TAB PO SCH (13:51)
[2020-10-17] MEDS: metroNIDAZOLE/NS 500 MG/100 ML 500 MG/100 ML BAG IV SCH ×2 (13:52→21:09)
[2020-10-17] MEDS: FAMOTIDINE 20 MG/2 ML INJ IV SCH ×2 (13:52→21:04)
[2020-10-17] MEDS ORDERED: BUPIVACAINE/PF (0.5%) 5 MG/1 ML 30 ML VIAL INFILTRATI ONE ×3 (14:50→16:45)
[2020-10-17] MEDS ORDERED: MIDAZOLAM 2 MG/2 ML INJ ONE (15:50)
[2020-10-17] MEDS ORDERED: fentaNYL 100 MCG/2 ML INJ ONE (15:50)
[2020-10-17] MEDS ORDERED: ROCURONIUM 50 MG/5 ML INJ IV ONE (15:50)
[2020-10-17] MEDS ORDERED: propofoL 200 MG/20 ML VIAL IV ONE (15:51)
[2020-10-17] MEDS ORDERED: ONDANSETRON 4 MG/2 ML INJ ONE (16:03)
[2020-10-17] MEDS ORDERED: ONDANSETRON 4 MG/2 ML INJ IV PRN (16:08)
--- NOTE | 2020-10-17 16:08 | Anesthesia Day of Surgery ---
Anesthesia Day of Surgery - Day of Surgery Patient Examined: Yes Patient H&P Reviewed: Yes Patient is NPO: Yes
--- NOTE | 2020-10-17 16:08 | Anesthesia Consultation ---
Anesthesia Consult and Med Hx Date of service: 10/17/20 - Airway Anesthetic Teeth Evaluation: Edentulous ROM Head & Neck: Adequate Mental/Hyoid Distance: Adequate Mallampati Class: Class III Intubation Access Assessment: Possibly Difficult - Pre-Operative Health Status ASA Pre-Surgery Classification: ASA4 Proposed Anesthetic Plan: General - Pulmonary Hx Respiratory Symptoms: Yes (respiratory insufficiency on 2L NC this admission) Home Oxygen Therapy: No Hx Sleep Apnea: Yes - Cardiovascular System Hx Hypertension: Yes Hx Heart Attack/AMI: No Hx Percutaneous Transluminal Coronary Angioplasty (PTCA): No - Central Nervous System CVA: No - Gastrointestinal Hx Gastroesophageal Reflux Disease: Yes - Endocrine Hx Renal Disease: Yes (last HD 10/16/20) Hx Liver Disease: No Hx Insulin Dependent Diabetes: Yes Hx Thyroid Disease: No - Hematic Hx Anemia: Yes - Other Systems Hx Obesity: Yes (BMI 56) - Additional Comments Anesthesia Medical History Comments: Presenting with incarcerated ventral hernia scheduled for open hernia repair.
[2020-10-17] MEDS ORDERED: ePHEDrine SULFATE 50 MG/1 ML INJ ONE (16:15)
[2020-10-17 16:18] LABS: Hepatitis B Surface Antigen Non-Reactive (Negative); Hepatitis C Virus Antibody Non-Reactive (NonReactive)
[2020-10-17] MEDS ORDERED: SODIUM CHLORIDE 0.9% IRR 1,000 ML BOTTLE IR ONE (16:45)
--- NOTE | 2020-10-17 18:10 | Procedure Note ---
Date of procedure: 10/17/20 Pre-op diagnosis: Incarcerated ventral hernia Post-op diagnosis: same Procedure: Open repair of incarcerated ventral hernia with mesh Description of procedure: Pt was placed supine on the OR table. GETA was administered. Abdomen was prepped and draped. A small, vertical incision was made over the incarcerated mass. Hernia sac was identified and was dissected down to it's fascial margins. Hernia sac was incised and was found to contain incarcerated omentum. Incarcerated omentum was freed from the hernia sac and was reduced back into the peritoneal cavity. Hernia sac was excised at the level of the fascia. A large piece of Ventralex mesh was placed within the peritoneal cavity. This was secured to the fascia and the fascia simultaneously closed with several interrupted sutures of 0-Ethibond. SQ tissue was irrigated with warm saline. Skin was approximated with crystal and a running suture of 4- 0 Nylon. Xeroform gauze was applied to the incision followed by an island dressing. Because of the incorrect Ellie clamp count, multiple plain films of the abdomen were obtained. These failed to reveal any evidence of a retained Ellie clamp within the abdomen. Pt tolerated the procedure well. Pt was extubated in the OR and was taken to PACU in stable condition. Findings: 1) Incarcerated omentum 2) Incorrect Ellie clamp count Anesthesia: GETA Surgeon: STEVE BROWN Estimated blood loss: minimal Pathology: list (Hernia sac) Specimen disposition: to lab Condition: stable Disposition: PACU
[2020-10-17] MEDS: fentaNYL 100 MCG/2 ML INJ IV PRN ×3 (18:20→18:40)
--- NOTE | 2020-10-17 18:27 | XRay Report ---
ABDOMEN 1 VIEW 10/17/2020 5:45 PM INDICATION / CLINICAL INFORMATION: MISSING INSTRUMENT. COMPARISON: None available. FINDINGS: Postsurgical change. No radiopaque foreign body is seen. No retained instruments identified. Surgical clips are seen overlying the right abdomen. IMPRESSION: 1. No radiopaque retained instruments are identified. Signer Name: Bassam Soler MD Signed: 10/17/2020 6:22 PM Workstation Name: [id number]
--- NOTE | 2020-10-17 18:32 | Post Anesthesia Evaluation ---
- Post Anesthesia Evaluation Patient Participated: Yes Airway Patent: Yes Stable Respiratory Function: Yes Nausea/Vomiting: No Temp > 96.8F: Yes Pain Manageable: Yes Adequeate Hydration: Yes Anesthesia Complications: No
[2020-10-17] MEDS: HYDROmorphone 1 MG/1 ML INJ IV PRN (20:57)
[2020-10-17] MEDS: PRAVASTATIN 80 MG TAB PO SCH (21:05)
[2020-10-17] MEDS: MONTELUKAST 10 MG TAB PO SCH (21:09)
[2020-10-18] MEDS: ALBUTEROL 2.5 MG/3 ML NEBU IH PRN (00:28)
[2020-10-18] MEDS ORDERED: diphenhydrAMINE 50 MG/ML VIAL IV ONE (00:38)
[2020-10-18] MEDS: INSULIN REGULAR, HUMAN 100 UNITS/1 ML SUB-Q SCH ×3 (01:54→15:39)
[2020-10-18] MEDS: metroNIDAZOLE/NS 500 MG/100 ML 500 MG/100 ML BAG IV SCH (05:15)
[2020-10-18] MEDS: FAMOTIDINE 20 MG/2 ML INJ IV SCH (09:09)
[2020-10-18] MEDS: PANTOPRAZOLE 40 MG TAB PO SCH (09:09)
--- NOTE | 2020-10-18 09:18 | Progress Note ---
Assessment and Plan Assessment and plan: Strangulated ventral hernia. Peritonitis Sepsis. Present on admission. Patient meets criteria given the leukocytosis, tachycardia and diagnosis of peritonitis. ESRD. Morbid obesity. 10/17/2020. Continue cefepime and Flagyl. Await surgery recommendations. Nephrology consultation for hemodialysis. 10/18/2020. Patient underwent open repair of incarcerated ventral hernia with mesh yesterday. Continue pain control and supportive care. Anticipate discharge in next 1 to 2 days. History Interval history: No new issues overnight Hospitalist Physical - Constitutional Vitals: Temp Pulse Resp BP Pulse Ox 98.1 F 89 20 135/34 98 10/18/20 08:18 10/18/20 08:18 10/18/20 08:18 10/18/20 08:18 10/18/20 08:18 General appearance: Present: no acute distress, obese - EENT Eyes: Present: PERRL, EOM intact ENT: hearing intact, clear oral mucosa, dentition normal - Neck Neck: Present: supple, normal ROM - Respiratory Respiratory effort: normal Respiratory: bilateral: CTA - Cardiovascular Rhythm: regular Heart Sounds: Present: S1 & S2. Absent: gallop, rub - Extremities Extremities: no ischemia, No edema, Full ROM - Abdominal General gastrointestinal: soft, non-tender, non-distended, normal bowel sounds - Integumentary Integumentary: Present: clear, warm, dry - Neurologic Neurologic: CNII-XII intact, moves all extremities Results - Labs CBC & Chem 7: 10/17/20 07:08 10/17/20 07:08 Labs: Laboratory Last Values WBC 12.9 K/mm3 (4.5-11.0) H 10/17/20 07:08 RBC 3.60 M/mm3 (3.65-5.03) L 10/17/20 07:08 Hgb 11.0 gm/dl (11.8-15.2) L 10/17/20 07:08 Hct 33.4 % (35.5-45.6) L 10/17/20 07:08 MCV 93 fl (84-94) 10/17/20 07:08 MCH 30 pg (28-32) 10/17/20 07:08 MCHC 33 % (32-34) 10/17/20 07:08 RDW 17.2 % (13.2-15.2) H 10/17/20 07:08 Plt Count 270 K/mm3 (140-440) 10/17/20 07:08 Lymph % (Auto) 8.6 % (13.4-35.0) L 10/16/20 15:46 [place] % (Auto) 6.6 % (0.0-7.3) 10/16/20 15:46 Eos % (Auto) 7.2 % (0.0-4.3) H 10/16/20 15:46 Baso % (Auto) 0.8 % (0.0-1.8) 10/16/20 15:46 Lymph # (Auto) 0.7 K/mm3 (1.2-5.4) L 10/16/20 15:46 [place] # (Auto) 0.5 K/mm3 (0.0-0.8) 10/16/20 15:46 Eos # (Auto) 0.6 K/mm3 (0.0-0.4) H 10/16/20 15:46 Baso # (Auto) 0.1 K/mm3 (0.0-0.1) 10/16/20 15:46 Add Manual Diff Complete 10/17/20 07:08 Total Counted 100 10/17/20 07:08 Seg Neutrophils % Seat Joiner Chainstitch 10/17/20 07:08 Seg Neuts % (Manual) 86.0 % (40.0-70.0) H 10/17/20 07:08 Band Neutrophils % 4.0 % 10/17/20 07:08 Lymphocytes % (Manual) 3.0 % (13.4-35.0) L 10/17/20 07:08 Monocytes % (Manual) 2.0 % (0.0-7.3) 10/17/20 07:08 Eosinophils % (Manual) 5.0 % (0.0-4.3) H 10/17/20 07:08 Nucleated RBC % Not Reportable 10/17/20 07:08 Seg Neutrophils # 6.3 K/mm3 (1.8-7.7) 10/16/20 15:46 Seg Neutrophils # Man 11.1 K/mm3 (1.8-7.7) H 10/17/20 07:08 Band Neutrophils # 0.5 K/mm3 10/17/20 07:08 Lymphocytes # (Manual) 0.4 K/mm3 (1.2-5.4) L 10/17/20 07:08 Abs React Lymphs (Man) 0.0 K/mm3 10/17/20 07:08 Monocytes # (Manual) 0.3 K/mm3 (0.0-0.8) 10/17/20 07:08 Eosinophils # (Manual) 0.6 K/mm3 (0.0-0.4) H 10/17/20 07:08 Basophils # (Manual) 0.0 K/mm3 (0.0-0.1) 10/17/20 07:08 Metamyelocytes # 0.0 K/mm3 10/17/20 07:08 Myelocytes # 0.0 K/mm3 10/17/20 07:08 Promyelocytes # 0.0 K/mm3 10/17/20 07:08 Blast Cells # 0.0 K/mm3 10/17/20 07:08 WBC Morphology Not Reportable 10/17/20 07:08 Hypersegmented Neuts Not Reportable 10/17/20 07:08 Hyposegmented Neuts Not Reportable 10/17/20 07:08 Hypogranular Neuts Not Reportable 10/17/20 07:08 Smudge Cells Not Reportable 10/17/20 07:08 Toxic Granulation Not Reportable 10/17/20 07:08 Toxic Vacuolation Not Reportable 10/17/20 07:08 Dohle Bodies Not Reportable 10/17/20 07:08 Pelger-Huet Anomaly Not Reportable 10/17/20 07:08 Renny Rods Not Reportable 10/17/20 07:08 Platelet Estimate Consistent w auto 10/17/20 07:08 Clumped Platelets Not Reportable 10/17/20 07:08 Plt Clumps, EDTA Not Reportable 10/17/20 07:08 Large Platelets Not Reportable 10/17/20 07:08 Giant Platelets Rare 10/17/20 07:08 Platelet Satelliting Not Reportable 10/17/20 07:08 Plt Morphology Comment Not Reportable 10/17/20 07:08 RBC Morphology Not Reportable 10/17/20 07:08 Dimorphic RBCs Not Reportable 10/17/20 07:08 Polychromasia Not Reportable 10/17/20 07:08 Hypochromasia Not Reportable 10/17/20 07:08 Poikilocytosis Not Reportable 10/17/20 07:08 Anisocytosis 1+ 10/17/20 07:08 Microcytosis Not Reportable 10/17/20 07:08 Macrocytosis Few 10/17/20 07:08 Spherocytes Not Reportable 10/17/20 07:08 Pappenheimer Bodies Not Reportable 10/17/20 07:08 Sickle Cells Not Reportable 10/17/20 07:08 Target Cells Not Reportable 10/17/20 07:08 Tear Drop Cells Not Reportable 10/17/20 07:08 Ovalocytes Not Reportable 10/17/20 07:08 Helmet Cells Not Reportable 10/17/20 07:08 [place] Bodies Not Reportable 10/17/20 07:08 [place] Rings Not Reportable 10/17/20 07:08 [place] Cells Not Reportable 10/17/20 07:08 Bite Cells Not Reportable 10/17/20 07:08 Crenated Cell Not Reportable 10/17/20 07:08 Elliptocytes Not Reportable 10/17/20 07:08 Acanthocytes (Spur) Not Reportable 10/17/20 07:08 Rouleaux Not Reportable 10/17/20 07:08 Hemoglobin C Crystals Not Reportable 10/17/20 07:08 Schistocytes Not Reportable 10/17/20 07:08 Malaria parasites Not Reportable 10/17/20 07:08 Messi Bodies Not Reportable 10/17/20 07:08 Hem Pathologist Commnt No 10/17/20 07:08 Sodium 134 mmol/L (137-145) L 10/17/20 07:08 Potassium 3.8 mmol/L (3.6-5.0) D 10/17/20 07:08 Chloride 92.1 mmol/L (98-107) L 10/17/20 07:08 Carbon Dioxide 28 mmol/L (22-30) 10/17/20 07:08 Anion Gap 18 mmol/L 10/17/20 07:08 BUN 36 mg/dL (9-20) H 10/17/20 07:08 Creatinine 10.0 mg/dL (0.8-1.3) H 10/17/20 07:08 Estimated GFR 7 ml/min 10/17/20 07:08 BUN/Creatinine Ratio 4 % 10/17/20 07:08 Glucose 135 mg/dL (75-100) H 10/17/20 07:08 POC Glucose 176 mg/dL (70-105) H 10/17/20 21:24 Calcium 9.3 mg/dL (8.4-10.2) 10/17/20 07:08 Magnesium 2.00 mg/dL (1.7-2.3) 10/16/20 15:46 Total Creatine Kinase 148 units/L (55-170) 10/16/20 15:46 Hepatitis A IgM Ab Non-reactive (NonReactive) 10/17/20 15:19 Hep Bs Antigen Non-reactive (Negative) 10/17/20 15:19 Hep B Core IgM Ab Non-reactive (NonReactive) 10/17/20 15:19 Hepatitis C Antibody Non-reactive (NonReactive) 10/17/20 15:19 Blood Type A POSITIVE 10/17/20 15:00 Antibody Screen Negative 10/17/20 15:00 Microbiology: Microbiology 10/16/20 16:55 Peripheral/Venous Blood Culture - Preliminary NO GROWTH AFTER 24 HOURS 10/16/20 16:55 Peripheral/Venous Blood Culture - Preliminary NO GROWTH AFTER 24 HOURS Wallace/IV: Voiding Method Toilet Active Medications - Current Medications Current Medications: Generic Name Dose Route Start Last Admin Trade Name Freq PRN Reason Stop Dose Admin Acetaminophen 650 mg 10/16/20 18:00 Acetaminophen 325 Mg Tab PO Q4H PRN Pain MILD(1-3)/Fever >100.5/GUERRERO Albuterol 2.5 mg 10/16/20 18:30 10/18/20 00:28 Albuterol 2.5 Mg/3 Ml Nebu IH 2.5 mg Q4HRT PRN Administration Shortness Of Breath Amlodipine Besylate 10 mg 10/17/20 10:00 10/17/20 13:51 Amlodipine 5 Mg Tab PO 10 mg DAILY ED Administration Dextrose 50 ml 10/16/20 18:00 10/16/20 21:40 Dextrose 50% In Water (25gm) 50 Ml Syringe IV 50 ml Q30MIN PRN Administration Hypoglycemia Protocol Famotidine 10 mg 10/16/20 22:00 10/18/20 09:09 Famotidine 20 Mg/2 Ml Inj IV 10 mg BID ED Administration Fentanyl 50 mcg 10/17/20 16:08 10/17/20 18:40 Fentanyl 100 Mcg/2 Ml Inj IV 10/18/20 16:07 50 mcg Q5MIN PRN Administration Pain , Severe (7-10) Hydromorphone HCl 0.5 mg 10/16/20 18:00 10/17/20 20:57 Hydromorphone 1 Mg/1 Ml Inj IV 0.5 mg Q3H PRN Administration Pain , Severe (7-10) Cefepime HCl 2 gm in 100 mls @ 200 mls/hr 10/17/20 13:00 10/17/20 19:50 Cefepime/Ns 2 Gm/100 Ml IV Infused Q24H ED Infusion Protocol Metronidazole 500 mg in 100 mls @ 100 mls/hr 10/17/20 13:00 10/18/20 05:15 Flagyl 500 Mg/100 Ml IV 100 mls/hr Q8H ED Administration Protocol Sodium Chloride 100 mls @ 999 mls/hr 10/17/20 13:00 Nacl 0.9% IV HORTENSIA PRN Hypotension Insulin Human Regular 0 units 10/16/20 18:00 10/18/20 01:54 Insulin Regular, Human 100 Units/1 Ml SUB-Q 3 units Q6H ED Administration Protocol Metoprolol Succinate 50 mg 10/17/20 10:00 10/17/20 13:51 Metoprolol Succinate Xl 50 Mg Tab PO 50 mg QDAY ED Administration Montelukast Sodium 10 mg 10/16/20 18:00 10/17/20 21:09 Montelukast 10 Mg Tab PO 10 mg QPM ED Administration Morphine Sulfate 2 mg 10/16/20 17:39 10/18/20 05:07 Morphine 2 Mg/1 Ml Inj IV 2 mg Q4H PRN Administration Pain, Moderate (4-6) Ondansetron HCl 4 mg 10/16/20 18:00 10/18/20 05:07 Ondansetron 4 Mg/2 Ml Inj IV 4 mg Q8H PRN Administration Nausea And Vomiting Ondansetron HCl 4 mg 10/17/20 16:08 Ondansetron 4 Mg/2 Ml Inj IV ONCE PRN Nausea And Vomiting Pantoprazole Sodium 40 mg 10/17/20 10:00 10/18/20 09:09 Pantoprazole 40 Mg Tab PO 40 mg QDAY ED Administration Pravastatin Sodium 80 mg 10/16/20 22:00 10/17/20 21:05 Pravastatin 80 Mg Tab PO 80 mg QHS ED Administration Sodium Chloride 10 ml 10/16/20 22:00 10/17/20 21:06 Sodium Chloride 0.9% 10 Ml Flush Syringe IV 10 ml BID ED Administration Sodium Chloride 10 ml 10/16/20 18:00 Sodium Chloride 0.9% 10 Ml Flush Syringe IV PRN PRN LINE FLUSH Zolpidem Tartrate 5 mg 10/16/20 18:00 Zolpidem 5 Mg Tab PO QHS PRN Insomnia
[2020-10-18] MEDS: HYDROmorphone 1 MG/1 ML INJ IV PRN ×2 (09:46→14:00)
[2020-10-18] MEDS: amLODIPine 5 MG TAB PO SCH (09:51)
[2020-10-18] MEDS: METOPROLOL SUCCINATE XL 50 MG TAB PO SCH (09:51)
--- NOTE | 2020-10-18 14:12 | Progress Note ---
Assessment and Plan - Patient Problems (1) Ventral hernia without obstruction or gangrene Current Visit: Yes Status: Acute Plan to address problem: s/p ventral hernia repair POD 1. Further recommendations per general surgery. (2) End stage renal disease Current Visit: No Status: Chronic Plan to address problem: Placed on inpatient TTS HD schedule. (3) Hypertensive chronic kidney disease with stage 5 chronic kidney disease or end stage renal disease Current Visit: Yes Status: Chronic Plan to address problem: Monitor blood pressures under current regimen. (4) Anemia in chronic kidney disease Current Visit: No Status: Chronic Plan to address problem: Based on recent H/H levels, no acute indications for LIZ therapy. Will monitor. (5) Secondary hyperparathyroidism (of renal origin) Current Visit: Yes Status: Chronic Plan to address problem: He is on velphoro at home, which we don't have in formulary here. Will place on renvela 3 tabs with each meal. Subjective Date of service: 10/18/20 Interval history: Seen at HD today. Tolerating treatment well. No acute complaints. Objective - Vital Signs Vital signs: Vital Signs - 12hr 10/18/20 10/18/20 10/18/20 05:19 08:18 09:46 Temperature 98.5 F 98.1 F Pulse Rate 66 89 Respiratory 20 20 20 Rate Blood Pressure 124/46 135/34 O2 Sat by Pulse 90 98 Oximetry 10/18/20 10/18/20 10/18/20 10:10 10:20 10:30 Temperature 98.1 F Pulse Rate 81 76 114 H Respiratory 18 Rate Blood Pressure 162/38 155/60 104/52 O2 Sat by Pulse Oximetry 10/18/20 10/18/20 10/18/20 10:45 11:00 11:15 Temperature Pulse Rate 71 83 75 Respiratory Rate Blood Pressure 126/46 119/46 141/57 O2 Sat by Pulse Oximetry 10/18/20 10/18/20 10/18/20 11:30 11:45 12:00 Temperature Pulse Rate 67 62 62 Respiratory Rate Blood Pressure 141/70 131/110 120/98 O2 Sat by Pulse Oximetry 10/18/20 10/18/20 10/18/20 12:15 12:30 12:45 Temperature Pulse Rate 81 84 84 Respiratory Rate Blood Pressure 106/29 122/44 132/49 O2 Sat by Pulse Oximetry 10/18/20 13:00 Temperature Pulse Rate 83 Respiratory Rate Blood Pressure 130/59 O2 Sat by Pulse Oximetry - General Appearance General appearance: well-developed, appears stated age, obese EENT: ATNC Neck: no JVD Respiratory: Present: Clear to Ascultation Cardiology: regular Integumentary: hyperkeratosis Neurologic: no focal deficit, alert and oriented x3 Musculoskeletal: deferred Psychiatric: cooperative - Lab 10/17/20 07:08 10/17/20 07:08 Most recent lab results Calcium 9.3 mg/dL (8.4-10.2) 10/17/20 07:08 Magnesium 2.00 mg/dL (1.7-2.3) 10/16/20 15:46 - Allied health notes Allied health notes reviewed: nursing Medications & Allergies - Medications Allergies/Adverse Reactions: Allergies morphine Allergy (Verified 08/09/19 07:24) Rash Home Medications: Home Medications Medication Instructions Recorded Confirmed Last Taken Type Insulin Detemir [Levemir Flextouch] 20 unit SQ BID 08/09/19 08/09/19 1 Day Ago History ~09/15/19 Metoprolol Succinate [Kapspargo 50 mg PO DAILY 08/09/19 08/09/19 1 Day Ago History Sprinkle] ~09/15/19 Montelukast [Singulair] 10 mg PO QPM 08/09/19 08/09/19 Unknown History Omeprazole Magnesium [PriLOSEC Otc] 40 mg PO QDAY 08/09/19 08/09/19 1 Day Ago History ~09/15/19 Simvastatin 40 mg PO QHS 08/09/19 08/09/19 1 Day Ago History ~09/15/19 ALBUTEROL NEB's [Proventil 0.083% 2.5 mg IH Q4HRT PRN nebu 09/17/19 Unknown Rx NEBS] Acetaminophen [Acetaminophen TAB] 650 mg PO Q4H PRN tablet 09/17/19 Unknown Rx Albuterol Mdi (or & Nicu Only) 2 puff IH QID PRN #1 09/17/19 Unknown Rx [ProAir HFA Inhaler] Amlodipine Besylate [Norvasc] 10 mg PO DAILY #30 09/17/19 Unknown Rx HYDROcodone/APAP 5-325 [[place] 2 each PO Q6H PRN #10 tablet 09/17/19 Unknown Rx 5-325 mg TAB] Pantoprazole [Protonix TAB] 40 mg PO QDAY tablet 09/17/19 Unknown Rx Zolpidem [Ambien] 5 mg PO QHS PRN tablet 09/17/19 Unknown Rx oxyCODONE /ACETAMINOPHEN [Percocet 1 tab PO Q6HR PRN #10 tablet 12/11/19 Unknown Rx 5/325] Active Medications: Generic Name Dose Route Start Last Admin Trade Name [place] PRN Reason Stop Dose Admin Acetaminophen 650 mg 10/16/20 18:00 Acetaminophen 325 Mg Tab PO Q4H PRN Pain MILD(1-3)/Fever >100.5/GUERRERO Albuterol 2.5 mg 10/16/20 18:30 10/18/20 00:28 Albuterol 2.5 Mg/3 Ml Nebu IH 2.5 mg Q4HRT PRN Administration Shortness Of Breath Amlodipine Besylate 10 mg 10/17/20 10:00 10/18/20 09:51 Amlodipine 5 Mg Tab PO Not Given DAILY ED Dextrose 50 ml 10/16/20 18:00 10/16/20 21:40 Dextrose 50% In Water (25gm) 50 Ml Syringe IV 50 ml Q30MIN PRN Administration Hypoglycemia Protocol Famotidine 10 mg 10/16/20 22:00 10/18/20 09:09 Famotidine 20 Mg/2 Ml Inj IV 10 mg BID ED Administration Fentanyl 50 mcg 10/17/20 16:08 10/17/20 18:40 Fentanyl 100 Mcg/2 Ml Inj IV 10/18/20 16:07 50 mcg Q5MIN PRN Administration Pain , Severe (7-10) Hydromorphone HCl 0.5 mg 10/16/20 18:00 10/18/20 09:46 Hydromorphone 1 Mg/1 Ml Inj IV 0.5 mg Q3H PRN Administration Pain , Severe (7-10) Cefepime HCl 2 gm in 100 mls @ 200 mls/hr 10/17/20 13:00 10/17/20 19:50 Cefepime/Ns 2 Gm/100 Ml IV Infused Q24H ED Infusion Protocol Metronidazole 500 mg in 100 mls @ 100 mls/hr 10/17/20 13:00 10/18/20 05:15 Flagyl 500 Mg/100 Ml IV 100 mls/hr Q8H ED Administration Protocol Sodium Chloride 100 mls @ 999 mls/hr 10/17/20 13:00 Nacl 0.9% IV HORTENSIA PRN Hypotension Insulin Human Regular 0 units 10/16/20 18:00 10/18/20 09:51 Insulin Regular, Human 100 Units/1 Ml SUB-Q Not Given Q6H [facility] Protocol Metoprolol Succinate 50 mg 10/17/20 10:00 10/18/20 09:51 Metoprolol Succinate Xl 50 Mg Tab PO Not Given QDAY ED Montelukast Sodium 10 mg 10/16/20 18:00 10/17/20 21:09 Montelukast 10 Mg Tab PO 10 mg QPM ED Administration Morphine Sulfate 2 mg 10/16/20 17:39 10/18/20 05:07 Morphine 2 Mg/1 Ml Inj IV 2 mg Q4H PRN Administration Pain, Moderate (4-6) Ondansetron HCl 4 mg 10/16/20 18:00 10/18/20 05:07 Ondansetron 4 Mg/2 Ml Inj IV 4 mg Q8H PRN Administration Nausea And Vomiting Ondansetron HCl 4 mg 10/17/20 16:08 Ondansetron 4 Mg/2 Ml Inj IV ONCE PRN Nausea And Vomiting Pantoprazole Sodium 40 mg 10/17/20 10:00 10/18/20 09:09 Pantoprazole 40 Mg Tab PO 40 mg QDAY ED Administration Pravastatin Sodium 80 mg 10/16/20 22:00 10/17/20 21:05 Pravastatin 80 Mg Tab PO 80 mg QHS ED Administration Sodium Chloride 10 ml 10/16/20 22:00 10/17/20 21:06 Sodium Chloride 0.9% 10 Ml Flush Syringe IV 10 ml BID ED Administration Sodium Chloride 10 ml 10/16/20 18:00 Sodium Chloride 0.9% 10 Ml Flush Syringe IV PRN PRN LINE FLUSH Zolpidem Tartrate 5 mg 10/16/20 18:00 Zolpidem 5 Mg Tab PO QHS PRN Insomnia
--- NOTE | 2020-10-18 15:47 | Discharge Summary ---
Providers - Providers Date of Admission: 10/16/20 17:39 Date of discharge: 10/18/20 Attending physician: BETZY ROONEY 10/16/20 21:19 Consult to Physician [CONS] Stat Comment: Consulting Provider: STEVE BROWN Physician Instructions: Reason For Exam: Strangulated ventral hernia 10/17/20 08:31 Consult to Physician [CONS] Routine Comment: Consulting Provider: AUDREY DUQUE Physician Instructions: Reason For Exam: esrd Primary care physician: GATE WATCHMAN Hospitalization Reason for admission: incarcerated ventral hernia Condition: Stable Hospital course: This is a 60 yo AA M with past medical history of hypertension, obesity, RUTHIE, Obesity hypoventilation syndrome, Type 2 DM, CHF, ESRD on HD on TTS schedule at [facility], who presents to [facility] ER with complaints of mid abdominal pain which has been gradually worsening in intensity for the last few months. Pain was localized to the periumbilical region, with intensity opf 8/10, nonradiating, associated with nausea, worsened with palpation. In ER, Patient underwent CT scan of the abdomen pelvis and was found to have evidence of moderate to large ventral abdominal hernia containing fluid/inflamed fat, concerning for strangulation. Pt was admitted for further surgical evaluation. Surgery saw the pt in consultation and performed ventral hernia repair for which the pt tolerated. Pt did well post op too. Pt's most recent HD was on 10/16, labs showed elevated BUN/Cr at 36/10mg/dl along with hypokalemia of 3.1. Nephrology aw the patient in consultation and initiated HD without issues. Surgery has cleared the pt for discharge home. D/C time 30 min Disposition: DC-01 TO HOME OR SELFCARE Final Discharge Diagnosis (Prints w/discharge instructions): incarcerated ventral hernia s/p repair, ESRD Core Measure Documentation - Palliative Care Palliative Care/ Comfort Measures: Not Applicable - Core Measures Any of the following diagnoses?: none Exam - Constitutional Vitals: Temp Pulse Resp BP Pulse Ox 98.0 F 84 18 134/44 98 10/18/20 14:30 10/18/20 14:30 10/18/20 14:30 10/18/20 14:30 10/18/20 08:18 General appearance: Present: no acute distress, well-nourished - EENT Eyes: Present: PERRL ENT: hearing intact, clear oral mucosa - Neck Neck: Present: supple, normal ROM - Respiratory Respiratory effort: normal Respiratory: bilateral: CTA - Cardiovascular Heart Sounds: Present: S1 & S2. Absent: rub, click - Extremities Extremities: pulses symmetrical, No edema Peripheral Pulses: within normal limits - Abdominal General gastrointestinal: Present: soft, non-tender, non-distended, normal bowel sounds Male genitourinary: Present: normal - Integumentary Integumentary: Present: clear, warm, dry - Musculoskeletal Musculoskeletal: gait normal, strength equal bilaterally - Psychiatric Psychiatric: appropriate mood/affect, intact judgment & insight - Neurologic Neurologic: CNII-XII intact, moves all extremities Plan Activity: advance as tolerated Weight Bearing Status: Full Weight Bearing Diet: low fat, low cholesterol, low salt Wound: per your surgeon's advice Follow up with: PRIMARY CARE, [Primary Care Provider] - 7 Days STEVE BROWN MD [Staff Physician] - 7 Days
[2020-10-18] MEDS ORDERED: SEVELAMER CARBONATE 800 MG TAB PO SCH (16:30)
[2020-10-18 18:50] VITALS: BP 119/33
== END 2020-10-18 19:39 | disposition home or self-care (01) | DRG 853 ==
LOC: ED 13:48 → 3B-SURG 17:39
PROVIDERS: ADMIT Internal Medicine; ATTEND Hospitalist
PROC: 0WUF0JZ Supplement Abdominal Wall with Synthetic Substitute, Open Approach (ICD-10-PCS; principal; 2020-10-17)
PROC: 06HY33Z Insertion of Infusion Device into Lower Vein, Percutaneous Approach (ICD-10-PCS; 2020-10-17)
PROC: 5A09357 Assistance with Respiratory Ventilation, Less than 24 Consecutive Hours, Continuous Positive Airway Pressure (ICD-10-PCS; 2020-10-17)
PROC: 5A1D70Z Performance of Urinary Filtration, Intermittent, Less than 6 Hours Per Day (ICD-10-PCS; 2020-10-18)
DX: A41.9 Sepsis, unspecified organism (principal); K65.9 Peritonitis, unspecified; N18.6 End stage renal disease; K43.6 Other and unspecified ventral hernia with obstruction, without gangrene; E66.2 Morbid (severe) obesity with alveolar hypoventilation; I13.2 Hypertensive heart and chronic kidney disease with heart failure and with stage 5 chronic kidney disease, or end stage renal disease; N25.81 Secondary hyperparathyroidism of renal origin; Z68.43 Body mass index [BMI] 50.0-59.9, adult; E11.22 Type 2 diabetes mellitus with diabetic chronic kidney disease; E78.00 Pure hypercholesterolemia, unspecified; K21.9 Gastro-esophageal reflux disease without esophagitis; J45.909 Unspecified asthma, uncomplicated; I50.9 Heart failure, unspecified; D63.1 Anemia in chronic kidney disease; Z99.2 Dependence on renal dialysis; Z79.899 Other long term (current) drug therapy; Z79.891 Long term (current) use of opiate analgesic; Z79.4 Long term (current) use of insulin; Z88.5 Allergy status to narcotic agent; Z83.3 Family history of diabetes mellitus; Z82.49 Family history of ischemic heart disease and other diseases of the circulatory system
CPT/HCPCS: 36415; 74018; 74176; 80048; 80074; 82550; 82962; 83735; 85007; 85025; 86850; 86900; 86901; 87040; 88302; 94640; 94660; 96365; G0378; A9270-GY; C1781; J0692; J1170; J1200; J1815; J2250; J2270; J2405; J2543; J2704; J3010

== ENCOUNTER 2020-11-03 12:05 | Observation (INO) | payer MEDICARE ==
--- NOTE | 2020-11-03 13:22 | XRay Report ---
CHEST 1 VIEW 11/03/2020 12:59 PM INDICATION / CLINICAL INFORMATION: cough. COMPARISON: None available. FINDINGS: SUPPORT DEVICES: None. HEART / MEDIASTINUM: No significant abnormality. LUNGS / PLEURA: There is mild increased interstitial prominence and vascularity. No focal consolidati on No pneumothorax. Signer Name: Bassam Soler MD Signed: 11/03/2020 1:17 PM Workstation Name: [id number]
[2020-11-03 15:28] LABS: Calcium 9.2 mg/dL (8.4-10.2)
--- NOTE | 2020-11-03 15:51 | Emergency Department Report ---
ED Shortness of Breath HPI - General Chief Complaint: Abdominal Pain Stated Complaint: GENERAL ILLNESS Time Seen by Provider: 11/03/20 12:37 Source: patient, EMS Mode of arrival: Ambulatory Limitations: Other - History of Present Illness Initial Comments: Patient is a 60-year-old F Citizen Of [place] male with past medical history of hypertension and end-stage renal disease who was at dialysis today and had his dialysis session stopped 30 minutes into the session. Patient was coughing continuously. Temperature was done at the dialysis center showed his temp erature was 99.1 and they decided to send him to the emergency department. Patient has been afebrile since being here but does state he does have a chronic cough that is worse when he misses dialysis. Cough has been going on for years he is very congested. - Related Data Home Medications Medication Instructions Recorded Confirmed Last Taken Insulin Detemir [Levemir Flextouch] 20 unit SQ BID 08/09/19 08/09/19 1 Day Ago ~09/15/19 Metoprolol Succinate [Kapspargo 50 mg PO DAILY 08/09/19 08/09/19 1 Day Ago Sprinkle] ~09/15/19 Montelukast [Singulair] 10 mg PO QPM 08/09/19 08/09/19 Unknown Omeprazole Magnesium [PriLOSEC Otc] 40 mg PO QDAY 08/09/19 08/09/19 1 Day Ago ~09/15/19 Simvastatin 40 mg PO QHS 08/09/19 08/09/19 1 Day Ago ~09/15/19 Previous Rx's Medication Instructions Recorded Last Taken Type Acetaminophen [Acetaminophen TAB] 650 mg PO Q4H PRN tablet 09/17/19 Unknown Rx Albuterol Mdi (or & Nicu Only) 2 puff IH QID PRN #1 09/17/19 Unknown Rx [ProAir HFA Inhaler] Amlodipine Besylate [Norvasc] 10 mg PO DAILY #30 09/17/19 Unknown Rx Pantoprazole [Protonix TAB] 40 mg PO QDAY tablet 09/17/19 Unknown Rx Zolpidem [Ambien] 5 mg PO QHS PRN tablet 09/17/19 Unknown Rx Metoprolol Xl [Metoprolol 50 mg PO QDAY tablet 10/18/20 Unknown Rx SUCCINATE ER TAB] Allergies Allergy/AdvReac Type Severity Reaction Status Date / Time morphine Allergy Rash Verified 08/09/19 07:24 ED Review of Systems ROS: Stated complaint: GENERAL ILLNESS Other details as noted in HPI Comment: All other systems reviewed and negative ED Past Medical Hx - Past Medical History Hx Hypertension: Yes Hx Heart Attack/AMI: No Hx Diabetes: Yes Hx GERD: Yes Hx Liver Disease: No Hx Renal Disease: Yes (last HD 10/16/20) Hx Asthma: Yes Hx COPD: No Additional medical history: Hypercholesterolemia, obstructive sleep apnea, GERD - Surgical History Additional Surgical History: Left chest permacath - Social History Smoking Status: Unknown if ever smoked - Medications Home Medications: Home Medications Medication Instructions Recorded Confirmed Last Taken Type Insulin Detemir [Levemir Flextouch] 20 unit SQ BID 08/09/19 08/09/19 1 Day Ago History ~09/15/19 Metoprolol Succinate [Kapspargo 50 mg PO DAILY 08/09/19 08/09/19 1 Day Ago History Sprinkle] ~09/15/19 Montelukast [Singulair] 10 mg PO QPM 08/09/19 08/09/19 Unknown History Omeprazole Magnesium [PriLOSEC Otc] 40 mg PO QDAY 08/09/19 08/09/19 1 Day Ago History ~09/15/19 Simvastatin 40 mg PO QHS 08/09/19 08/09/19 1 Day Ago History ~09/15/19 Acetaminophen [Acetaminophen TAB] 650 mg PO Q4H PRN tablet 09/17/19 Unknown Rx Albuterol Mdi (or & Nicu Only) 2 puff IH QID PRN #1 09/17/19 Unknown Rx [ProAir HFA Inhaler] Amlodipine Besylate [Norvasc] 10 mg PO DAILY #30 09/17/19 Unknown Rx Pantoprazole [Protonix TAB] 40 mg PO QDAY tablet 09/17/19 Unknown Rx Zolpidem [Ambien] 5 mg PO QHS PRN tablet 09/17/19 Unknown Rx Metoprolol Xl [Metoprolol 50 mg PO QDAY tablet 10/18/20 Unknown Rx SUCCINATE ER TAB] ED Physical Exam - General Limitations: Other General appearance: alert, in no apparent distress - Head Head exam: Present: atraumatic, normocephalic - Eye Eye exam: Present: normal appearance, PERRL, EOMI - ENT ENT exam: Present: normal orophraynx, mucous membranes moist - Neck Neck exam: Present: normal inspection - Respiratory Respiratory exam: Present: normal lung sounds bilaterally, respiratory distress (constant cough), rales. Absent: wheezes, rhonchi - Cardiovascular Cardiovascular Exam: Present: regular rate, normal rhythm, normal heart sounds. Absent: systolic murmur, diastolic murmur, rubs, gallop - GI/Abdominal GI/Abdominal exam: Present: soft, normal bowel sounds, hernia, other (Patient has a hernia repair incision with crystal present. Wound appears well-healed.). Absent: distended, tenderness, guarding, rebound - Rectal Rectal exam: Present: deferred - Extremities Exam Extremities exam: Present: normal inspection - Back Exam Back exam: Present: normal inspection - Neurological Exam Neurological exam: Present: alert, oriented X3 - Psychiatric Psychiatric exam: Present: normal affect, normal mood - Skin Skin exam: Present: warm, dry, intact, normal color. Absent: rash ED Course Vital Signs 11/03/20 11/03/20 11/03/20 12:31 12:44 13:00 Temperature 98.2 F Pulse Rate 70 66 Respiratory 16 16 22 Rate Blood Pressure 162/70 165/68 Blood Pressure [Left] O2 Sat by Pulse 96 98 96 Oximetry 11/03/20 11/03/20 11/03/20 13:30 14:00 15:00 Temperature Pulse Rate 72 68 81 Respiratory 16 16 28 H Rate Blood Pressure 165/68 165/68 165/68 Blood Pressure [Left] O2 Sat by Pulse 98 98 Oximetry 11/03/20 17:50 Temperature Pulse Rate 64 Respiratory 20 Rate Blood Pressure Blood Pressure 168/100 [Left] O2 Sat by Pulse 97 Oximetry - Reevaluation(s) Reevaluation #1: 11/03/20 15:[address] 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 He was coughing uncontrollably and had a temperature of 99 and they wanted him to come to the ER to be evaluated. Patient has a normal potassium however he does have some pulmonary vascular congestion and again his cough is almost constant. Does not seem to be in respiratory distress but the patient will be set up for dialysis today. Patient likely can be discharged after his dialysis session. ED Medical Decision Making - Lab Data Result diagrams: 11/03/20 14:58 - Radiology Data [facility] [address] [place] [address] XRay Report Signed Patient: RAGHU MAY MR#: [id number] : 1960 Acct:[id number] Age/Sex: 60 / M ADM Date: 11/03/20 Loc: ED Attending Dr: Ordering Physician: PALMA POOLE MD Date of Service: 11/03/20 Procedure(s): XR chest 1V ap Accession Number(s): [id number] cc: PALMA POOLE MD Fluoro Time In Minutes: CHEST 1 VIEW 11/03/2020 12:59 PM INDICATION / CLINICAL INFORMATION: cough. COMPARISON: None available. FINDINGS: SUPPORT DEVICES: None. HEART / MEDIASTINUM: No significant abnormality. LUNGS / PLEURA: There is mild increased interstitial prominence and vascularity. No focal consolidation No pneumothorax. Signer Name: Bassam Soler MD Signed: 11/03/2020 1:17 PM Workstation Name: [id number] - Medical Decision Making Patient to be admitted for observation for dialysis Critical care attestation.: If time is entered above; I have spent that time in minutes in the direct care of this critically ill patient, excluding procedure time. ED Disposition Clinical Impression: ESRD needing dialysis, Pulmonary edema Disposition: OP ADMIT IP TO THIS HOSP Is pt being admited?: Yes Does the pt Need Aspirin: No Condition: Stable Instructions: Pulmonary Edema (ED) Time of Disposition: 18:07
[2020-11-03] MEDS ORDERED: oxyCODONE /ACETAMINOPHEN 5-325MG TAB PO PRN (18:06)
[2020-11-03] MEDS ORDERED: ACETAMINOPHEN 325 MG TAB PO PRN (18:06)
[2020-11-03] MEDS ORDERED: ONDANSETRON 4 MG/2 ML INJ IV PRN (18:06)
[2020-11-03] MEDS ORDERED: HYDROmorphone 1 MG/1 ML INJ IV PRN (18:06)
[2020-11-03] MEDS ORDERED: ALBUTEROL 2.5 MG/3 ML NEBU IH PRN (18:06)
[2020-11-03] MEDS ORDERED: SODIUM CHLORIDE 0.9% 100 ML IV PRN ×2 (18:09→19:36)
[2020-11-03] MEDS ORDERED: ZOLPIDEM 5 MG TAB PO PRN (18:10)
--- NOTE | 2020-11-03 18:11 | History and Physical Report ---
History of Present Illness Chief complaint: I cant stop coughing History of present illness: 60 YO Male with ESRD on HD(T,R,Sa), HTN, RUTHIE, DM, HLD, Obesity Hypoventilation Syndrome, CHF presents to ED for evaluation. Pt reports "I cant stop coughing". Patient states that he was in his usual state of health and presented to his outpatient dialysis center for his scheduled dialysis today. Patient states that shortly after initiating dialysis he experienced continuous coughing episode and was unable to continue dialysis. EMS was notified and upon arrival the patient was found to be in distress and subsequently transported to [facility] for further care and evaluation of the aforementioned symptoms. The patient was s een and evaluated in the emergency department. All lab and imaging studies reviewed. Patient placed in observation status and admitted to medical floor. Pt found to have ESRD in need of urgent dialysis, Fluid Overload. Nephrology team consulted in ED. Patient denies fever, chills, chest pain, palpitation, productive cough, skin rash, recent ill contacts, or known exposure to COVID-19. Prior admission on 10/16/2020 reviewed. All medication listed at time of admission has been reconciled. . Past History Past Medical History: diabetes, heart failure, hypertension, hyperlipidemia, other (See HPI) Past Surgical History: Other (Dialysis access) Social history: single. denies: smoking, alcohol abuse, prescription drug abuse Family history: diabetes, hypertension Medications and Allergies Allergies Allergy/AdvReac Type Severity Reaction Status Date / Time morphine Allergy Rash Verified 08/09/19 07:24 Home Medications Medication Instructions Recorded Confirmed Last Taken Type Insulin Detemir [Levemir Flextouch] 20 unit SQ BID 08/09/19 08/09/19 1 Day Ago History ~09/15/19 Metoprolol Succinate [Kapspargo 50 mg PO DAILY 08/09/19 08/09/19 1 Day Ago History Sprinkle] ~09/15/19 Montelukast [Singulair] 10 mg PO QPM 08/09/19 08/09/19 Unknown History Omeprazole Magnesium [PriLOSEC Otc] 40 mg PO QDAY 08/09/19 08/09/19 1 Day Ago History ~09/15/19 Simvastatin 40 mg PO QHS 08/09/19 08/09/19 1 Day Ago History ~09/15/19 Acetaminophen [Acetaminophen TAB] 650 mg PO Q4H PRN tablet 09/17/19 Unknown Rx Albuterol Mdi (or & Nicu Only) 2 puff IH QID PRN #1 09/17/19 Unknown Rx [ProAir HFA Inhaler] Amlodipine Besylate [Norvasc] 10 mg PO DAILY #30 09/17/19 Unknown Rx Pantoprazole [Protonix TAB] 40 mg PO QDAY tablet 09/17/19 Unknown Rx Zolpidem [Ambien] 5 mg PO QHS PRN tablet 09/17/19 Unknown Rx Metoprolol Xl [Metoprolol 50 mg PO QDAY tablet 10/18/20 Unknown Rx SUCCINATE ER TAB] Active Meds: Active Medications Acetaminophen (Acetaminophen 325 Mg Tab) 650 mg PO Q4H PRN PRN Reason: Pain MILD(1-3)/Fever >100.5/GUERRERO Albuterol (Albuterol 2.5 Mg/3 Ml Nebu) 2.5 mg IH Q4HRT PRN PRN Reason: Shortness Of Breath Hydromorphone HCl (Hydromorphone 1 Mg/1 Ml Inj) 0.5 mg IV Q24H PRN PRN Reason: Pain , Severe (7-10) Sodium Chloride (Nacl 0.9%) 100 mls @ 999 mls/hr IV HORTENSIA PRN PRN Reason: Hypotension Ondansetron HCl (Ondansetron 4 Mg/2 Ml Inj) 4 mg IV Q8H PRN PRN Reason: Nausea And Vomiting Oxycodone/Acetaminophen (Oxycodone /Acetaminophen 5-325mg Tab) 1 tab PO Q12H PRN PRN Reason: Pain, Moderate (4-6) Sodium Chloride (Sodium Chloride 0.9% 10 Ml Flush Syringe) 10 ml IV BID ED Sodium Chloride (Sodium Chloride 0.9% 10 Ml Flush Syringe) 10 ml IV PRN PRN PRN Reason: LINE FLUSH Review of Systems Constitutional: no weight loss, no weight gain, no fever, no sweats Ears, nose, mouth and throat: no ear pain, no decreased hearing, no nose pain, no sinus pressure Cardiovascular: no chest pain, no orthopnea, no rapid/irregular heart beat, no edema, no syncope Respiratory: cough, no excessive sputum, no shortness of breath, no dyspnea on exertion, no pleurisy, no pain on inspiration Gastrointestinal: no abdominal pain, no nausea, no diarrhea, no constipation, no change in bowel habits, no hematemesis Genitourinary Male: no dysuria, no hematuria, no discharge, no urinary frequency, no urinary hesitancy Rectal: no pain, no incontinence, no bleeding Musculoskeletal: no neck stiffness, no neck pain, no shooting arm pain, no shooting leg pain Integumentary: no rash, no pruritis, no redness, no wounds, no jaundice, no boils Neurological: no head injury, no transient paralysis, no weakness, no parathesias, no tingling Psychiatric: no anxiety, no change in sleep habits, no insomnia, no suicidal ideation Endocrine: no cold intolerance, no heat intolerance, no excessive thirst, no polyuria, no nocturia, no excessive sweating, no flushing Hematologic/Lymphatic: no easy bruising, no easy bleeding Allergic/Immunologic: no urticaria, no allergic rhinitis, no wheezing Exam - Constitutional Vitals: Temp Pulse Resp BP Pulse Ox 98.2 F 64 20 168/100 97 11/03/20 12:31 11/03/20 17:50 11/03/20 17:50 11/03/20 17:50 11/03/20 17:50 General appearance: Present: mild distress - EENT Eyes: Present: PERRL ENT: hearing intact, clear oral mucosa - Neck Neck: Present: supple, normal ROM - Respiratory Respiratory effort: normal Respiratory: bilateral: CTA - Cardiovascular Heart Sounds: Present: S1 & S2. Absent: rub, click - Extremities Extremities: pulses symmetrical, No edema Peripheral Pulses: within normal limits - Abdominal General gastrointestinal: Present: soft, non-tender, non-distended, normal bowel sounds Male genitourinary: Present: normal - Integumentary Integumentary: Present: clear, warm, dry - Musculoskeletal Musculoskeletal: gait normal, strength equal bilaterally - Psychiatric Psychiatric: appropriate mood/affect, intact judgment & insight - Neurologic Neurologic: CNII-XII intact, moves all extremities Results - Labs CBC & Chem 7: 11/03/20 14:58 Labs: Abnormal lab results 11/03/20 Range/Units 14:58 Sodium 132 L (137-145) mmol/L Chloride 91.7 L (98-107) mmol/L BUN 29 H (9-20) mg/dL Creatinine 7.7 H (0.8-1.3) mg/dL Assessment and Plan - Patient Problems (1) ESRD needing dialysis Current Visit: Yes Status: Acute Plan to address problem: Nephrology team consulted in ED, urgent dialysis, supportive care, monitor fluid balance, avoid nephrotoxic agents. (2) Morbid obesity with BMI of 50.0-59.9, adult Current Visit: No Status: Acute Plan to address problem: Balanced diet, increase physical activity at discharge, outpatient pulmonary fo llow-up for sleep study, outpatient bariatric surgery follow-up. (3) Other fluid overload Current Visit: No Status: Acute Plan to address problem: BMP, urgent dialysis, supportive care, fluid restriction, monitor fluid balance. (4) Bronchospasm with bronchitis, acute Current Visit: Yes Status: Acute Plan to address problem: Suppportive care, cough suppressant therapy, urgent dialysis to treat fluid overload (5) HTN (hypertension) Current Visit: Yes Status: Acute Qualifiers: Hypertension type: primary hypertension Qualified Code(s): I10 - Essential (primary) hypertension Plan to address problem: Monitor BP q shift, continue medical management (6) Diabetes Current Visit: Yes Status: Acute Plan to address problem: Consistent carbohydrate diet, Accu-Chek, hypoglycemia protocol, insulin protocol (7) DVT prophylaxis Current Visit: No Status: Acute Plan to address problem: SCD to bilateral lower extremities while in bed, patient is ambulatory
[2020-11-03] MEDS ORDERED: diphenhydrAMINE 50 MG/ML VIAL IV PRN (19:36)
[2020-11-03] MEDS ORDERED: PRAVASTATIN 80 MG TAB PO SCH (22:00)
[2020-11-03] MEDS ORDERED: NON-FORMULARY EACH (Simvastatin [Simvastatin] 40 MG Tablet) PO SCH (22:00)
[2020-11-03] MEDS: BENZONATATE 100 MG CAP PO SCH (23:57)
[2020-11-04] MEDS: BENZONATATE 100 MG CAP PO SCH (06:20)
--- NOTE | 2020-11-04 08:21 | Consultation ---
History of Present Illness - Reason for Consult Consult date: 11/04/20 end stage renal disease Requesting physician: MARIA ISABEL LOMBARDI - History of Present Illness This is a 60 yo AA M with past medical history of hypertension, obesity, RUTHIE, Obesity hypoventilation syndrome, Type 2 DM, CHF, ESRD on HD on TTS schedule at [facility], who presents to [facility] ER with complaints of incessant cough, SOB, for which his HD treatment at his outpatient clinic was interrupted. In ER Patient underwent CXR which showed persistent pulmonary edema, labs showed elevated BUN/Cr at 29/7.7mg/dl along with hyponatremia of 132. Renal consult is requested for management of ESRD/HD. Past History Past Medical History: diabetes, heart failure, hypertension, hyperlipidemia, other (See HPI) Past Surgical History: Other (Dialysis access) Social history: single. denies: smoking, alcohol abuse, prescription drug abuse Family history: diabetes, hypertension Medications and Allergies Allergies Allergy/AdvReac Type Severity Reaction Status Date / Time morphine Allergy Rash Verified 08/09/19 07:24 Home Medications Medication Instructions Recorded Confirmed Last Taken Type Insulin Detemir [Levemir Flextouch] 20 unit SQ BID 08/09/19 08/09/19 1 Day Ago History ~09/15/19 Metoprolol Succinate [Kapspargo 50 mg PO DAILY 08/09/19 08/09/19 1 Day Ago History Sprinkle] ~09/15/19 Montelukast [Singulair] 10 mg PO QPM 08/09/19 08/09/19 Unknown History Omeprazole Magnesium [PriLOSEC Otc] 40 mg PO QDAY 08/09/19 08/09/19 1 Day Ago History ~09/15/19 Simvastatin 40 mg PO QHS 08/09/19 08/09/19 1 Day Ago History ~09/15/19 Acetaminophen [Acetaminophen TAB] 650 mg PO Q4H PRN tablet 09/17/19 Unknown Rx Albuterol Mdi (or & Nicu Only) 2 puff IH QID PRN #1 09/17/19 Unknown Rx [ProAir HFA Inhaler] Amlodipine Besylate [Norvasc] 10 mg PO DAILY #30 09/17/19 Unknown Rx Pantoprazole [Protonix TAB] 40 mg PO QDAY tablet 09/17/19 Unknown Rx Zolpidem [Ambien] 5 mg PO QHS PRN tablet 09/17/19 Unknown Rx Metoprolol Xl [Metoprolol 50 mg PO QDAY tablet 10/18/20 Unknown Rx SUCCINATE ER TAB] Active Meds: Active Medications Acetaminophen (Acetaminophen 325 Mg Tab) 650 mg PO Q4H PRN PRN Reason: Pain MILD(1-3)/Fever >100.5/GUERRERO Albuterol (Albuterol 2.5 Mg/3 Ml Nebu) 2.5 mg IH Q4HRT PRN PRN Reason: Shortness Of Breath Amlodipine Besylate (Amlodipine 10 Mg Tab) 10 mg PO DAILY [facility] Benzonatate (Benzonatate 100 Mg Cap) 100 mg PO Q8HR [facility] Last Admin: 11/04/20 06:20 Dose: 100 mg Documented by: Diphenhydramine HCl (Diphenhydramine 50 Mg/Ml Vial) 25 mg IV HORTENSIA PRN PRN Reason: Itching Last Admin: 11/03/20 20:14 Dose: 25 mg Documented by: Hydromorphone HCl (Hydromorphone 1 Mg/1 Ml Inj) 0.5 mg IV Q24H PRN PRN Reason: Pain , Severe (7-10) Sodium Chloride (Nacl 0.9%) 100 mls @ 999 mls/hr IV HORTENSIA PRN PRN Reason: Hypotension Sodium Chloride (Nacl 0.9%) 100 mls @ 999 mls/hr IV HORTENSIA PRN PRN Reason: Hypotension Metoprolol Succinate (Metoprolol Succinate Xl 50 Mg Tab) 50 mg PO QDAY [facility] Montelukast Sodium (Montelukast 10 Mg Tab) 10 mg PO QPM [facility] Ondansetron HCl (Ondansetron 4 Mg/2 Ml Inj) 4 mg IV Q8H PRN PRN Reason: Nausea And Vomiting Oxycodone/Acetaminophen (Oxycodone /Acetaminophen 5-325mg Tab) 1 tab PO Q12H PRN PRN Reason: Pain, Moderate (4-6) Last Admin: 11/04/20 00:36 Dose: 1 tab Documented by: Pantoprazole Sodium (Pantoprazole 40 Mg Tab) 40 mg PO QDAY [facility] Pravastatin Sodium (Pravastatin 80 Mg Tab) 80 mg PO QHS [facility] Last Admin: 11/03/20 23:57 Dose: 80 mg Documented by: Sodium Chloride (Sodium Chloride 0.9% 10 Ml Flush Syringe) 10 ml IV BID ED Last Admin: 11/03/20 23:49 Dose: 10 ml Documented by: Sodium Chloride (Sodium Chloride 0.9% 10 Ml Flush Syringe) 10 ml IV PRN PRN PRN Reason: LINE FLUSH Zolpidem Tartrate (Zolpidem 5 Mg Tab) 5 mg PO QHS PRN PRN Reason: Insomnia Review of Systems All systems: negative Constitutional: fatigue, weakness Cardiovascular: shortness of breath, dyspnea on exertion Exam - Vital Signs Vital signs: Vital Signs Temp Pulse Resp BP Pulse Ox 98.2 F 70 16 162/70 96 11/03/20 12:31 11/03/20 12:31 11/03/20 12:31 11/03/20 12:31 11/03/20 12:31 - General Appearance General appearance: well-developed, well-nourished, appears stated age EENT: ATNC, PERRL, mucous membranes moist Neck: Present: neck supple Respiratory: Decreased Breath Sounds Heart: regular, S1S2 Gastrointestinal: Present: normoactive bowel sounds, obese Integumentary: no rash Neurologic: no focal deficit, alert and oriented x3, strength 5/5, CN 3-12 intact Psychiatric: mood/affect appropriate, cooperative Results - Lab Results 11/03/20 14:58 Most recent lab results Calcium 9.2 mg/dL (8.4-10.2) 11/03/20 14:58 Assessment and Plan - Patient Problems (1) ESRD needing dialysis Current Visit: Yes Status: Acute Plan to address problem: additional HD performed on 11/04 for volume control. cont HD on TTS schedule. (2) Pulmonary edema Current Visit: Yes Status: Acute Plan to address problem: volume management with HD (3) Hypertensive chronic kidney disease with stage 5 chronic kidney disease or end stage renal disease Current Visit: No Status: Chronic Plan to address problem: monitor BP on current meds (4) Anemia in chronic kidney disease Current Visit: No Status: Chronic Plan to address problem: Hb at target, no further EPO needed at this time
[2020-11-04] MEDS ORDERED: PANTOPRAZOLE 40 MG TAB PO SCH (10:00)
[2020-11-04] MEDS ORDERED: METOPROLOL SUCCINATE XL 50 MG TAB PO SCH (10:00)
[2020-11-04] MEDS ORDERED: amLODIPine 10 MG TAB PO SCH (10:00)
[2020-11-04] MEDS ORDERED: NON-FORMULARY EACH (Omeprazole Magnesium [Prilosec Otc] 20 MG Tablet.Dr) PO SCH (10:00)
--- NOTE | 2020-11-04 12:49 | Discharge Summary ---
Providers - Providers Date of Admission: 11/03/20 18:06 Attending physician: CRISTOFER MARIO MD Primary care physician: PIPE LAYER HELPER Hospitalization Reason for admission: COUGING Condition: Stable Hospital course: 60 YO Male with ESRD on HD(T,R,Sa), HTN, RUTHIE, DM, HLD, Obesity Hypoventilation Syndrome, CHF presents to ED for evaluation. Pt reports "I cant stop coughing". Patient states that he was in his usual state of health and presented to his outpatient dialysis center for his scheduled dialysis today. Patient states that shortly after initiating dialysis he experienced continuous coughing episode and was unable to continue dialysis. EMS was notified and upon arrival the patient was found to be in distress and subsequently transported to [facility] for further care and evaluation of the aforementioned symptoms. The patient was seen and evaluated in the emergency department. All lab and imaging studies reviewed. Patient placed in observation status and admitted to medical floor. Pt found to have ESRD in need of urgent dialysis, Fluid Overload. Nephrology team consulted in ED. Patient denies fever, chills, chest pain, palpitation, productive cough, skin rash, recent ill contacts, or known exposure to COVID-19. Prior admission on 10/16/2020 reviewed. All medication listed at time of admission has been reconciled. Patient was dialyzed, No new coughing spell noted. Respiratory status is improved and stable. Discussed with Ferryboat Ticket Taker patient is cleared for discharge HE WILL FOLLOW WITH SURGEON for evaluation of post op outpt due to recent ventr al hernia repair (1) ESRD needing dialysis Current Visit: Yes Status: Acute Plan to address problem: Nephrology team consulted in ED, urgent dialysis, supportive care, monitor fluid balance, avoid nephrotoxic agents. (2) Morbid obesity with BMI of 50.0-59.9, adult Current Visit: No Status: Acute Plan to address problem: Balanced diet, increase physical activity at discharge, outpatient pulmonary follow-up for sleep study, outpatient bariatric surgery follow-up. (3) Recent ventral hernia repair (4) Other fluid overload Current Visit: No Status: Acute Plan to address problem: BMP, urgent dialysis, supportive care, fluid restriction, monitor fluid balance. (5) Bronchospasm with bronchitis, acute Current Visit: Yes Status: Acute Plan to address problem: Suppportive care, cough suppressant therapy, urgent dialysis to treat fluid overload (6) HTN (hypertension) Current Visit: Yes Status: Acute Qualifiers: Hypertension type: primary hypertension Qualified Code(s): I10 - Essential (primary) hypertension Plan to address problem: Monitor BP q shift, continue medical management (7) diabetes Current Visit: Yes Status: Acute Plan to address problem: Consistent carbohydrate diet, Accu-Chek, hypoglycemia protocol, insulin protocol Disposition: TO HOME OR SELFCARE Final Discharge Diagnosis (Prints w/discharge instructions): ESRD with volume overload. Time spent for discharge: 35 mins Core Measure Documentation - Palliative Care Palliative Care/ Comfort Measures: Not Applicable - Core Measures Any of the following diagnoses?: none Exam - Physical Exam Narrative exam: General appearance: Present: No acute distress, Morbid obese - EENT Eyes: Present: PERRL ENT: hearing intact, clear oral mucosa - Neck Neck: Present: supple, normal ROM - Respiratory Respiratory effort: normal Respiratory: bilateral: CTA - Cardiovascular Heart Sounds: Present: S1 & S2. Absent: rub, click - Extremities Extremities: pulses symmetrical, No edema Peripheral Pulses: within normal limits - Abdominal General gastrointestinal: Present: dressing in the abdomen, soft, non-tender, non-distended, normal bowel sounds Male genitourinary: Present: normal - Integumentary Integumentary: Present: clear, warm, dry - Musculoskeletal Musculoskeletal: gait normal, strength equal bilaterally - Psychiatric Psychiatric: appropriate mood/affect, intact judgment & insight - Neurologic Neurologic: CNII-XII intact, moves all extremities - Constitutional Vitals: Temp Pulse Resp BP Pulse Ox 97.5 F L 70 16 168/69 97 11/04/20 05:39 11/04/20 09:14 11/04/20 05:39 11/04/20 09:14 11/04/20 07:36 Plan Activity: advance as tolerated, fall precautions Diet: low salt, renal Wound: per your surgeon's advice Special Instructions: record daily weights, record daily BP diary Follow up with: PRIMARY MD PASTORA [Primary Care Provider] - 7 Days MORRIS GRIER MD [Staff Physician] - 7 Days STEVE BROWN MD [Staff Physician] - 7 Days Prescriptions: Benzonatate [Tessalon Perles] 100 mg PO Q8HR #30 capsule
[2020-11-04 14:45] VITALS: BP 150/62
[2020-11-04] MEDS ORDERED: MONTELUKAST 10 MG TAB PO SCH (18:00)
== END 2020-11-04 14:20 | disposition home or self-care (01) ==
LOC: ED 12:05 → 3A 18:06
PROVIDERS: ADMIT Internal Medicine; ATTEND Internal Medicine
DX: I13.2 Hypertensive heart and chronic kidney disease with heart failure and with stage 5 chronic kidney disease, or end stage renal disease (principal); I50.9 Heart failure, unspecified; N18.6 End stage renal disease; E66.2 Morbid (severe) obesity with alveolar hypoventilation; E87.70 Fluid overload, unspecified; J20.9 Acute bronchitis, unspecified; J81.1 Chronic pulmonary edema; K21.9 Gastro-esophageal reflux disease without esophagitis; E11.22 Type 2 diabetes mellitus with diabetic chronic kidney disease; E78.5 Hyperlipidemia, unspecified; Z68.43 Body mass index [BMI] 50.0-59.9, adult; Z99.2 Dependence on renal dialysis; Z79.4 Long term (current) use of insulin; Z79.899 Other long term (current) drug therapy; Z98.890 Other specified postprocedural states
CPT/HCPCS: 36415; 71045; 80048; 96374; 99284; A9270; G0257; G0378; J1200

== ENCOUNTER 2020-12-06 12:54 | Emergency (ER) | payer MEDICARE ==
[2020-12-06 14:27] VITALS: BP 135/104
--- NOTE | 2020-12-06 15:39 | Event Note ---
ED Screening Note ED Screening Note: SOB that increased today reports he did not have any AC and it worsened denies leg swelling states he also needs his crystal removed from a surgery, he did not follow up with a surgeon Dr Christine, assistant facility manager, he states he had an issue with his fistula had dialysis two days ago did not go to dialysis today "he states the bus did not come to get him" no CP no v/d This initial assessment/diagnostic orders/clinical plan/treatment(s) is/are subject to change based on patients health status, clinical progression and re- assessment by fellow clinical providers in the ED. Further treatment and workup at subsequent clinical providers discretion. Patient/guardian urged not to elope from the ED as their condition may be serious if not clinically assessed and managed. Initial orders include: labs, cxr, ekg
--- NOTE | 2020-12-06 16:48 | XRay Report ---
CHEST 2 VIEWS INDICATION / CLINICAL INFORMATION: SOB STUDY TIME: 162 COMPARISON: 11/03/2020 FINDINGS: SUPPORT DEVICES: None. HEART / MEDIASTINUM: No significant abnormality. LUNGS / PLEURA: No significant pulmonary or pleural abnormality. No pneumothorax. ADDITIONAL FINDINGS: No significant additional findings. Signer Name: Kahlil Garcia MD Signed: 12/06/2020 4:43 PM Workstation Name: [id number]
--- NOTE | 2020-12-07 10:27 | Electrocardiograph Report ---
[facility] Test Date: 2020-12-06 Test Time: 15:51:49 Pat Name: RAGHU MAY Department: Room: Gender: M Admissions Manager Rn: LEONORA : 1960 Requested By: JOHN CHO Order Number: [id number] Reading MD: Shivam Morales Measurements Intervals [place] Rate: 63 P: 50 AR: 209 QRS: -55 QRSD: 102 T: 46 QT: 452 QTc: 463 Interpretive Statements Sinus rhythm Borderline prolonged AR interval LAD, consider left anterior fascicular block No previous ECG available for comparison Electronically Signed On 12-07-2020 10:26:39 EDT by Shivam Morales
== END 2020-12-07 04:12 ==
LOC: ED 12:54
DX: R06.02 Shortness of breath (principal); Z99.2 Dependence on renal dialysis; Z53.21 Procedure and treatment not carried out due to patient leaving prior to being seen by health care provider
CPT/HCPCS: 71046; 93005

== ENCOUNTER 2021-01-14 13:18 | Observation (INO) | payer MEDICARE ==
[2021-01-14] MEDS ORDERED: ALBUTEROL 2.5 MG/3 ML NEBU IH ONE (13:51)
[2021-01-14] MEDS ORDERED: amLODIPine 5 MG TAB PO STA (13:52)
[2021-01-14] MEDS ORDERED: METOPROLOL SUCCINATE XL 50 MG TAB PO STA (13:56)
--- NOTE | 2021-01-14 14:26 | XRay Report ---
CHEST 2 VIEWS INDICATION / CLINICAL INFORMATION: dyspnea esrd. COMPARISON: 12/07/2019 FINDINGS: SUPPORT DEVICES: None. HEART / MEDIASTINUM: Moderate cardiomegaly. LUNGS / PLEURA: Mild interstitial pulmonary edema. ADDITIONAL FINDINGS: No significant additional findings. IMPRESSION: 1. Findings likely indicating CHF as above. Signer Name: Derik Solares MD Signed: 01/14/2021 2:22 PM Workstation Name: [id number]
--- NOTE | 2021-01-14 14:59 | Emergency Department Report ---
ED General Adult HPI - General Chief complaint: Medical Clearance Stated complaint: SOB/MISSED DIALYSIS PUI?: No Time Seen by Provider: 01/14/21 13:42 Source: patient, RN notes reviewed, old records reviewed Mode of arrival: Wheelchair Limitations: Physical Limitation - History of Present Illness Initial comments: The patient was evaluated in the emergency department for symptoms described in the history of present illness. He/she was evaluated in the context of the global COVID-19 pandemic, which necessitated consideration that the patient might be at risk for infection with the virus that causes COVID-19. Institutional protocols and algorithms that pertain to the evaluation of patients at risk for COVID-19 are in a state of rapid change based on information released by regulatory bodies including the CDC and federal and state organizations. These policies and algorithms were followed during the patient's care in the emergency department. Please note that these policies, procedures and recommendations changed on a rapid basis. The patient is a 60-year-old gentleman. He has a history of morbid obesity, end -stage renal disease on hemodialysis, Thursday, , Thursday. It is currently Thursday afternoon, and he last received hemodialysis this past . The patient also has a history of ventral hernia repair. This was performed at this hospital. Secondary to transportation issues, the patient has not been able to follow-up with a general surgeon. The patient presents to the ER today with a complaint of painless shortness of breath. He is coughing. The patient denies headache, neck pain, chest pain. He has no vomiting or diarrhea. He has no loss of taste or smell. He endorses a secondary complaint of request to have his ventral crystal removed today. He has not been able to follow-up with his general surgeon. His surgery was performed earlier on this summer. He denies travel, surgery, immobilization. -: Gradual, days(s) Consistency: constant Improves with: rest Worsens with: movement - Related Data Home Medications Medication Instructions Recorded Confirmed Last Taken Insulin Detemir [Levemir Flextouch] 20 unit SQ BID 08/09/19 08/09/19 1 Day Ago ~09/15/19 Metoprolol Succinate [Kapspargo 50 mg PO DAILY 08/09/19 08/09/19 1 Day Ago Sprinkle] ~09/15/19 Montelukast [Singulair] 10 mg PO QPM 08/09/19 08/09/19 Unknown Omeprazole Magnesium [PriLOSEC Otc] 40 mg PO QDAY 08/09/19 08/09/19 1 Day Ago ~09/15/19 Simvastatin 40 mg PO QHS 08/09/19 08/09/19 1 Day Ago ~09/15/19 Previous Rx's Medication Instructions Recorded Last Taken Type Acetaminophen [Acetaminophen TAB] 650 mg PO Q4H PRN tablet 09/17/19 Unknown Rx Albuterol Mdi (or & Nicu Only) 2 puff IH QID PRN #1 09/17/19 Unknown Rx [ProAir HFA Inhaler] Amlodipine Besylate [Norvasc] 10 mg PO DAILY #30 09/17/19 Unknown Rx Pantoprazole [Protonix TAB] 40 mg PO QDAY tablet 09/17/19 Unknown Rx Zolpidem [Ambien] 5 mg PO QHS PRN tablet 09/17/19 Unknown Rx Metoprolol Xl [Metoprolol 50 mg PO QDAY tablet 10/18/20 Unknown Rx SUCCINATE ER TAB] Benzonatate [Tessalon Perles] 100 mg PO Q8HR #30 capsule 11/04/20 Unknown Rx Allergies Allergy/AdvReac Type Severity Reaction Status Date / Time morphine Allergy Rash Verified 12/06/20 14:18 ED Review of Systems ROS: Stated complaint: SOB/MISSED DIALYSIS Other details as noted in HPI Constitutional: other (Denies loss of taste and smell). denies: fever Eyes: denies: eye discharge ENT: denies: epistaxis Respiratory: shortness of breath Cardiovascular: dyspnea on exertion. denies: chest pain Gastrointestinal: denies: abdominal pain, nausea, vomiting, diarrhea Neurological: weakness. denies: headache Hematological/Lymphatic: denies: easy bleeding ED Past Medical Hx - Past Medical History Previous Medical History?: Yes Hx Hypertension: Yes Hx Heart Attack/AMI: No Hx Diabetes: Yes Hx GERD: Yes Hx Liver Disease: No Hx Renal Disease: Yes (last HD 10/16/20) Hx Asthma: Yes Hx COPD: No Additional medical history: Hypercholesterolemia, obstructive sleep apnea, GERD - Surgical History Past Surgical History?: Yes Additional Surgical History: Left chest permacath/ HERNIA - Social History Smoking Status: Never Smoker - Medications Home Medications: Home Medications Medication Instructions Recorded Confirmed Last Taken Type Insulin Detemir [Levemir Flextouch] 20 unit SQ BID 08/09/19 08/09/19 1 Day Ago History ~09/15/19 Metoprolol Succinate [Kapspargo 50 mg PO DAILY 08/09/19 08/09/19 1 Day Ago History Sprinkle] ~09/15/19 Montelukast [Singulair] 10 mg PO QPM 08/09/19 08/09/19 Unknown History Omeprazole Magnesium [PriLOSEC Otc] 40 mg PO QDAY 08/09/19 08/09/19 1 Day Ago History ~09/15/19 Simvastatin 40 mg PO QHS 08/09/19 08/09/19 1 Day Ago History ~09/15/19 Acetaminophen [Acetaminophen TAB] 650 mg PO Q4H PRN tablet 09/17/19 Unknown Rx Albuterol Mdi (or & Nicu Only) 2 puff IH QID PRN #1 09/17/19 Unknown Rx [ProAir HFA Inhaler] Amlodipine Besylate [Norvasc] 10 mg PO DAILY #30 09/17/19 Unknown Rx Pantoprazole [Protonix TAB] 40 mg PO QDAY tablet 09/17/19 Unknown Rx Zolpidem [Ambien] 5 mg PO QHS PRN tablet 09/17/19 Unknown Rx Metoprolol Xl [Metoprolol 50 mg PO QDAY tablet 10/18/20 Unknown Rx SUCCINATE ER TAB] Benzonatate [Tessalon Perles] 100 mg PO Q8HR #30 capsule 11/04/20 Unknown Rx ED Physical Exam - General Limitations: No Limitations General appearance: alert, obese - Head Head exam: Present: atraumatic, normocephalic - Eye Eye exam: Present: normal appearance, EOMI. Absent: nystagmus - ENT ENT exam: Present: normal exam, normal orophraynx, mucous membranes moist, normal external ear exam - Neck Neck exam: Present: normal inspection, full ROM. Absent: tenderness, meningismus - Respiratory Respiratory exam: Present: normal lung sounds bilaterally, respiratory distress, rales. Absent: wheezes, rhonchi, stridor - Cardiovascular Cardiovascular Exam: Present: regular rate, normal rhythm, normal heart sounds. Absent: bradycardia, tachycardia, irregular rhythm, systolic murmur, diastolic murmur, rubs, gallop - GI/Abdominal GI/Abdominal exam: Present: soft, other (Interrupted midline ventral crystal are noted. No redness, pus or streaking is noted.). Absent: distended, tenderness, guarding, rebound, rigid, pulsatile mass - Rectal Rectal exam: Present: deferred - Extremities Exam Extremities exam: Present: normal inspection, full ROM, pedal edema (2-3+ edema in the bilateral lower extremities noted. There is right upper extremity dialysis access, without redness, pus or streaking.), other (2+ pulses noted in the bilateral upper and lower extremities. There is no palpable cord. negative Homans sign. Muscular compartments are soft. The pelvis is stable.) - Back Exam Back exam: Present: normal inspection. Absent: tenderness, CVA tenderness (R), CVA tenderness (L), paraspinal tenderness, vertebral tenderness - Neurological Exam Neurological exam: Present: alert, other (No facial droop. Tongue midline. Extraocular movements intact bilaterally. Facial sensation intact to light touch in V1, V2, V3 distribution bilaterally. 5 and a 5 strength in 4 extremities. Sensation intact to light touch in 4 extremities.). Absent: motor sensory deficit - Psychiatric Psychiatric exam: Present: anxious - Skin Skin exam: Present: warm, dry, intact, normal color. Absent: rash ED Course Vital Signs 01/14/21 13:29 Temperature 97.2 F L Pulse Rate 78 Respiratory 24 Rate Blood Pressure 232/109 [Right] O2 Sat by Pulse 98 Oximetry - Reevaluation(s) Reevaluation #1: 01/14/21 14:58 Differential diagnosis, including but not limited to: Fluid overload, azotemia, uremia, hyperkalemia, CHF, pneumonia, encounter for crystal removal, pulmonary hypertension, obstructive sleep apnea Assessment and plan: 60-year-old gentleman, presenting with marked hypertension and shortness of breath, as well as radiographic and physical exam evidence of fluid overload. Establish IV access, start antihypertensive therapy, obtain laboratory studies, and discussed with his robotic technician. Of note, patient refused to allow the cotton classer to obtain his laboratory studies. He is currently awake, alert and oriented and exhibits decision-making capacity. Patient understands that this refusal is contributing to a delay in care, and ultimate delay in disposition. He has agreed to allow one of our paramedics attempts phlebotomy. I was able to remove his interrupted crystal without complication or issue. The patient tolerated this well. 01/14/21 14:59 01/14/21 15:12 Professor Of Law unsuccessful in phlebotomy attempt. Have had multiple discussions with the patient regarding recommendation for IV placement. I recommended placement of an external jugular IV, for IV access, and for acquisition of laboratory studies. Patient continuing to refuse external jugular IV. The patient is requesting that "look at my arm with the machine to see if there is a vein." We will evaluate for suitable anatomy, but I advised the patient that it is unlikely that we will find something suitable. Explained risks, benefits and alternatives of EJ IV. Patient remains awake alert oriented and sober and exhibits decision-making capacity. As an alternative, I will also discussed with his private robotic technician, to determine if it is possible to admit this patient for urgent hemodialysis, and to allow for acquisition of laboratory studies while on the dialysis machine. 01/14/21 15:29 Evaluated the patients left upper extremity. Does not have ideal anatomy for ultrasound-guided IV in the left upper extremity. Cannot use right upper extremity because that is where his hemodialysis access is. I contacted his private robotic technician, Dr. Christine. Discussed the patient's history, physical, chest x-ray findings and vital signs. Dr. Christine advises that he can arrange for urgent hemodialysis. He also advises that he can have the dialysis team draw the patient's laboratory studies prior to initiating hemodialysis. I rediscussed this with the patient. He is agreeable to this plan of care. I have again reiterated my recommendation for a right-sided or left-sided EJ IV attempt and placement. The patient is refusing at this time. He is awake, alert and of sound mind and exhibits decision-making capacity. He is agreeable to admission for urgent hemodialysis. Hospital physician, Dr. Rebel Haro to admit to IMS I specifically discussed the aforementioned plan of care, and explicitly discussed that the patient is refusing IV placement, and that the hemodialysis team is to obtain his laboratory studies prior to initiating hemodialysis 01/14/21 15:30 ED Medical Decision Making - Lab Data Vital Signs 01/14/21 13:29 Temperature 97.2 F L Pulse Rate 78 Respiratory 24 Rate Blood Pressure 232/109 [Right] O2 Sat by Pulse 98 Oximetry - Radiology Data Radiology results: pending, report reviewed, image reviewed CHEST 2 VIEWS INDICATION / CLINICAL INFORMATION: dyspnea esrd. COMPARISON: 12/07/2019 FINDINGS: SUPPORT DEVICES: None. HEART / MEDIASTINUM: Moderate cardiomegaly. LUNGS / PLEURA: Mild interstitial pulmonary edema. ADDITIONAL FINDINGS: No significant additional findings. IMPRESSION: 1. Findings likely indicating CHF as above. Signer Name: Derik Solares MD Signed: 01/14/2021 1:22 PM Critical care attestation.: If time is entered above; I have spent that time in minutes in the direct care of this critically ill patient, excluding procedure time. ED Disposition Clinical Impression: ESRD needing dialysis, Pulmonary edema, Shortness of breath, HTN (hypertension), Morbid obesity with BMI of 50.0-59.9, adult, Noncompliance, Removal of crystal Disposition: 09 ADMITTED INPATIENT Is pt being admited?: Yes Does the pt Need Aspirin: No Condition: Good Instructions: Pulmonary Edema (ED), Hypertension (ED)
[2021-01-14] MEDS ORDERED: SODIUM CHLORIDE 0.9% 100 ML IV PRN (15:23)
[2021-01-14 17:07] LABS: Basophils # (Auto) 0.1 K/mm3 (0.0-0.1); Basophils % (Auto) 0.9 % (0.0-1.8); Hematocrit 29.4 % (35.5-45.6); Hemoglobin 9.8 gm/dl (11.8-15.2); Lymphocytes # (Auto) 0.8 K/mm3 (1.2-5.4); Lymphocytes % (Auto) 9.4 % (13.4-35.0); Mean Corpuscular HGB Conc 33 % (32-34); Mean Corpuscular Volume 92 fl (84-94); Monocytes # (Auto) 0.5 K/mm3 (0.0-0.8); Monocytes % (Auto) 6.1 % (0.0-7.3); Platelet Count 194 K/mm3 (140-440); Red Blood Count 3.19 M/mm3 (3.65-5.03); Red Cell Distribution Width 18.4 % (13.2-15.2)
[2021-01-14 17:21] LABS: INR 0.95 (0.87-1.13)
[2021-01-14 17:53] LABS: Calcium 9.3 mg/dL (8.4-10.2)
[2021-01-14 19:38] LABS: Hepatitis C Virus Antibody Non-Reactive (NonReactive)
[2021-01-14] MEDS ORDERED: oxyCODONE /ACETAMINOPHEN 5-325MG TAB PO PRN (19:52)
[2021-01-14] MEDS ORDERED: ONDANSETRON 4 MG/2 ML INJ IV PRN (19:52)
[2021-01-14] MEDS ORDERED: ACETAMINOPHEN 325 MG TAB PO PRN ×2 (19:52→20:00)
[2021-01-14] MEDS ORDERED: HYDROmorphone 1 MG/1 ML INJ IV PRN (19:52)
[2021-01-14] MEDS ORDERED: ALBUTEROL 8.5 GM MDI INHALATION IH PRN (20:00)
[2021-01-14] MEDS ORDERED: ZOLPIDEM 5 MG TAB PO PRN (20:00)
[2021-01-14] MEDS ORDERED: METOPROLOL SUCCINATE 50 MG PO SCH (20:15)
[2021-01-14] MEDS ORDERED: NON-FORMULARY EACH (Omeprazole Magnesium [Prilosec Otc] 20 MG Tablet.Dr) PO SCH (20:15)
[2021-01-14] MEDS ORDERED: ALBUTEROL 2.5 MG/3 ML NEBU IH PRN (20:21)
--- NOTE | 2021-01-14 20:30 | History and Physical Report ---
History of Present Illness Date of examination: 01/14/21 Date of admission: 01/14/21 15:33 Chief complaint: Shortness of breath on minimal exertion History of present illness: 60-year-old -[place] male with multiple medical problems including end- stage renal disease, hypertension, hyperlipidemia and asthma comes in for shortness of breath. And orthopnea. Patient has been missing his dialysis because of transportation issues. Shortness of breath on minimal exertion. Also cough present. No fever or chills. No exposure to Covid. Patient has dyspnea on very minimal exertion. - Past Medical History Previous Medical History?: Yes --Hypertension: Yes --Diabetes: Yes --GERD: Yes --Renal Disease: Yes (last HD 10/16/20) --Asthma: Yes Additional medical history: Hypercholesterolemia, obstructive sleep apnea, GERD - Surgical History --Past Surgical History?: Yes --Additional Surgical History: Left chest permacath/ HERNIA - Social History --Smoking Status: Never Smoker Review of systems ROS Constitutional no weight loss or weight gain no fever or chills HEENT no sore throat no post nasal drip no diplopia Neck no neck stiffness no lymph gland enlargement Chest and lungs no shortness of breath cough or wheezing CVS shortness of breath and orthopnea present GI no nausea no vomiting no diarrhea Genitourinary system no dysuria no flank pain Musculoskeletal system no muscle pains no joint pains [employer] no syncope no seizures Skin no rash no itching Psychiatric no depression no homicidal or suicidal tendencies Hematologic no lymphedema or bruising Endocrine no polydipsia no polyuria no cold intolerance no heat intolerance Medications and Allergies Allergies Allergy/AdvReac Type Severity Reaction Status Date / Time morphine Allergy Rash Verified 12/06/20 14:18 Home Medications Medication Instructions Recorded Confirmed Last Taken Type Insulin Detemir [Levemir Flextouch] 20 unit SQ BID 08/09/19 08/09/19 1 Day Ago History ~09/15/19 Metoprolol Succinate [Kapspargo 50 mg PO DAILY 08/09/19 08/09/19 1 Day Ago History Sprinkle] ~09/15/19 Montelukast [Singulair] 10 mg PO QPM 08/09/19 08/09/19 Unknown History Omeprazole Magnesium [PriLOSEC Otc] 40 mg PO QDAY 08/09/19 08/09/19 1 Day Ago History ~09/15/19 Simvastatin 40 mg PO QHS 08/09/19 08/09/19 1 Day Ago History ~09/15/19 Acetaminophen [Acetaminophen TAB] 650 mg PO Q4H PRN tablet 09/17/19 Unknown Rx Albuterol Mdi (or & Nicu Only) 2 puff IH QID PRN #1 09/17/19 Unknown Rx [ProAir HFA Inhaler] Amlodipine Besylate [Norvasc] 10 mg PO DAILY #30 09/17/19 Unknown Rx Pantoprazole [Protonix TAB] 40 mg PO QDAY tablet 09/17/19 Unknown Rx Zolpidem [Ambien] 5 mg PO QHS PRN tablet 09/17/19 Unknown Rx Metoprolol Xl [Metoprolol 50 mg PO QDAY tablet 10/18/20 Unknown Rx SUCCINATE ER TAB] Benzonatate [Tessalon Perles] 100 mg PO Q8HR #30 capsule 11/04/20 Unknown Rx Active Meds: Active Medications Acetaminophen (Acetaminophen 325 Mg Tab) 650 mg PO Q4H PRN PRN Reason: Pain MILD(1-3)/Fever >100.5/GUERRERO Acetaminophen (Acetaminophen 325 Mg Tab) 650 mg PO Q4H PRN PRN Reason: Pain MILD(1-3)/Fever >100.5/GUERRERO Albuterol (Albuterol 2.5 Mg/3 Ml Nebu) 2.5 mg IH Q4HRT PRN PRN Reason: Shortness Of Breath Benzonatate (Benzonatate 100 Mg Cap) 100 mg PO Q8HR ED Heparin Sodium (Porcine) (Heparin 5,000 Unit/1 Ml Vial) 5,000 unit SUB-Q Q12HR ED Hydromorphone HCl (Hydromorphone 1 Mg/1 Ml Inj) 0.5 mg IV Q3H PRN PRN Reason: Pain , Severe (7-10) Sodium Chloride (Nacl 0.9%) 100 mls @ 999 mls/hr IV HORTENSIA PRN PRN Reason: Hypotension Miscellaneous Medication (Insulin Detemir [Levemir Flextouch]) 20 unit SQ BID ED Miscellaneous Medication (Metoprolol Succinate [Kapspargo Sprinkle]) 50 mg PO DAILY ED Miscellaneous Medication (Omeprazole Magnesium [Prilosec Otc]) 40 mg PO QDAY ED Miscellaneous Medication (Simvastatin [Simvastatin]) 40 mg PO QHS ED Montelukast Sodium (Montelukast 10 Mg Tab) 10 mg PO QPM ED Ondansetron HCl (Ondansetron 4 Mg/2 Ml Inj) 4 mg IV Q8H PRN PRN Reason: Nausea And Vomiting Oxycodone/Acetaminophen (Oxycodone /Acetaminophen 5-325mg Tab) 1 tab PO Q6H PRN PRN Reason: Pain, Moderate (4-6) Pantoprazole Sodium (Pantoprazole 40 Mg Tab) 40 mg PO QDAY ED Sodium Chloride (Sodium Chloride 0.9% 10 Ml Flush Syringe) 10 ml IV BID ED Sodium Chloride (Sodium Chloride 0.9% 10 Ml Flush Syringe) 10 ml IV PRN PRN PRN Reason: LINE FLUSH Zolpidem Tartrate (Zolpidem 5 Mg Tab) 5 mg PO QHS PRN PRN Reason: Insomnia Exam - Constitutional Vitals: Temp Pulse Resp BP Pulse Ox 97.6 F 69 18 180/59 100 01/14/21 16:30 01/14/21 20:00 01/14/21 16:30 01/14/21 20:00 01/14/21 16:30 General appearance: Present: mild distress, well-nourished - EENT Eyes: Present: PERRL ENT: hearing intact, clear oral mucosa - Neck Neck: Present: supple, normal ROM - Respiratory Respiratory effort: normal Respiratory: bilateral: CTA - Cardiovascular Heart rate: 70 Rhythm: regular Heart Sounds: Present: S1 & S2. Absent: rub, click - Extremities Extremities: pulses symmetrical, No edema Peripheral Pulses: within normal limits - Abdominal General gastrointestinal: Present: soft, non-tender, non-distended, normal bowel sounds Male genitourinary: Present: normal - Integumentary Integumentary: Present: clear, warm, dry - Musculoskeletal Musculoskeletal: gait normal, strength equal bilaterally - Psychiatric Psychiatric: appropriate mood/affect, intact judgment & insight - Neurologic Neurologic: CNII-XII intact, moves all extremities Results - Labs CBC & Chem 7: 01/14/21 16:50 01/14/21 16:50 Labs: Laboratory Last Values WBC 8.6 K/mm3 (4.5-11.0) 01/14/21 16:50 RBC 3.19 M/mm3 (3.65-5.03) L 01/14/21 16:50 Hgb 9.8 gm/dl (11.8-15.2) L 01/14/21 16:50 Hct 29.4 % (35.5-45.6) L 01/14/21 16:50 MCV 92 fl (84-94) 01/14/21 16:50 MCH 31 pg (28-32) 01/14/21 16:50 MCHC 33 % (32-34) 01/14/21 16:50 RDW 18.4 % (13.2-15.2) H 01/14/21 16:50 Plt Count 194 K/mm3 (140-440) 01/14/21 16:50 Lymph % (Auto) 9.4 % (13.4-35.0) L 01/14/21 16:50 [place] % (Auto) 6.1 % (0.0-7.3) 01/14/21 16:50 Eos % (Auto) 12.0 % (0.0-4.3) H 01/14/21 16:50 Baso % (Auto) 0.9 % (0.0-1.8) 01/14/21 16:50 Lymph # (Auto) 0.8 K/mm3 (1.2-5.4) L 01/14/21 16:50 [place] # (Auto) 0.5 K/mm3 (0.0-0.8) 01/14/21 16:50 Eos # (Auto) 1.0 K/mm3 (0.0-0.4) H 01/14/21 16:50 Baso # (Auto) 0.1 K/mm3 (0.0-0.1) 01/14/21 16:50 Seg Neutrophils % 71.6 % (40.0-70.0) H 01/14/21 16:50 Seg Neutrophils # 6.2 K/mm3 (1.8-7.7) 01/14/21 16:50 PT 13.2 Sec. (12.2-14.9) 01/14/21 16:50 INR 0.95 (0.87-1.13) 01/14/21 16:50 Sodium 141 mmol/L (137-145) 01/14/21 16:50 Potassium 4.3 mmol/L (3.6-5.0) 01/14/21 16:50 Chloride 98.9 mmol/L (98-107) 01/14/21 16:50 Carbon Dioxide 18 mmol/L (22-30) L 01/14/21 16:50 Anion Gap 28 mmol/L 01/14/21 16:50 BUN 88 mg/dL (9-20) H 01/14/21 16:50 Creatinine 13.9 mg/dL (0.8-1.3) H 01/14/21 16:50 Estimated GFR 4 ml/min 01/14/21 16:50 BUN/Creatinine Ratio 6 % 01/14/21 16:50 Glucose 69 mg/dL (75-100) L 01/14/21 16:50 Calcium 9.3 mg/dL (8.4-10.2) 01/14/21 16:50 NT-Pro-B Natriuret Pep 06887 pg/mL (0-900) H 01/14/21 16:50 Hepatitis A IgM Ab Non-reactive (NonReactive) 01/14/21 17:50 Hep B Core IgM Ab Non-reactive (NonReactive) 01/14/21 17:50 Hepatitis C Antibody Non-reactive (NonReactive) 01/14/21 17:50 Assessment and Plan Advance Directives: Yes (Full code) Plan of care discussed with patient/family: Yes - Patient Problems (1) Volume overload Current Visit: Yes Status: Acute Plan to address problem: Emergent hemodialysis (2) ESRD needing dialysis Current Visit: Yes Status: Acute Plan to address problem: Emergent hemodialysis Counseled about compliance (3) Hypertensive emergency Current Visit: Yes Status: Acute Plan to address problem: Resume home antihypertensives and hydralazine 10 mg IV q. 3 as needed (4) Insulin dependent diabetes mellitus Current Visit: Yes Status: Acute Plan to address problem: Continue home insulin and coverage (5) Hyperlipidemia Current Visit: Yes Status: Chronic Qualifiers: Hyperlipidemia type: mixed hyperlipidemia Qualified Code(s): E78.2 - Mixed hyperlipidemia Plan to address problem: Continue statins (6) GERD (gastroesophageal reflux disease) Current Visit: Yes Status: Chronic Qualifiers: Esophagitis presence: without esophagitis Qualified Code(s): K21.9 - Gastro-esophageal reflux disease without esophagitis Plan to address problem: Continue PPIs (7) DVT prophylaxis Current Visit: Yes Status: Acute Plan to address problem: On heparin and GI prophylaxis
[2021-01-14 20:50] VITALS: BP 180/99
[2021-01-14] MEDS ORDERED: PANTOPRAZOLE 40 MG TAB PO SCH (21:00)
--- NOTE | 2021-01-14 21:15 | Discharge Summary ---
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 Hospitalization Condition: Good Disposition: 01 HOME / SELF CARE / HOMELESS - Discharge Diagnoses (1) Volume overload Status: Acute (2) ESRD needing dialysis Status: Acute (3) Hypertensive emergency Status: Acute (4) Insulin dependent diabetes mellitus Status: Acute (5) Hyperlipidemia Status: Chronic Qualifiers: Hyperlipidemia type: mixed hyperlipidemia Qualified Code(s): E78.2 - Mixed hyperlipidemia (6) GERD (gastroesophageal reflux disease) Status: Chronic Qualifiers: Esophagitis presence: without esophagitis Qualified Code(s): K21.9 - Gastro-esophageal reflux disease without esophagitis (7) DVT prophylaxis Status: Acute Exam - Constitutional Vitals: Temp Pulse Resp BP Pulse Ox 98.0 F 71 18 180/99 100 01/14/21 20:30 01/14/21 20:30 01/14/21 20:30 01/14/21 20:30 01/14/21 20:30 Plan
[2021-01-14 21:19] LABS: Hepatitis B Surface Antigen Nonreactive (Negative)
[2021-01-14] MEDS ORDERED: PRAVASTATIN 80 MG TAB PO SCH (22:00)
[2021-01-14] MEDS ORDERED: BENZONATATE 100 MG CAP PO SCH (22:00)
[2021-01-14] MEDS ORDERED: NON-FORMULARY EACH (Insulin Detemir [Levemir Flextouch] 100 UNIT/ML Insuln.Pen) SQ SCH (22:00)
[2021-01-14] MEDS ORDERED: INSULIN GLARGINE 100 UNITS/ML SUB-Q SCH (22:00)
[2021-01-14] MEDS ORDERED: NON-FORMULARY EACH (Simvastatin [Simvastatin] 40 MG Tablet) PO SCH (22:00)
[2021-01-14] MEDS ORDERED: HEPARIN 5,000 UNIT/1 ML VIAL SUB-Q SCH (22:00)
[2021-01-15] MEDS ORDERED: METOPROLOL SUCCINATE XL 50 MG TAB PO SCH (10:00)
[2021-01-15] MEDS ORDERED: MONTELUKAST 10 MG TAB PO SCH (18:00)
--- NOTE | 2021-01-16 11:45 | Electrocardiograph Report ---
[facility] Test Date: 2021-01-14 Test Time: 14:40:32 Pat Name: RAGHU MAY Department: Room: [place] [address] Gender: M Dianetic Counselor: ANNE MARIE : 1960 Requested By: JUSTIN ALEXIS Order Number: [id number] Reading MD: Marcellus Terry Measurements Intervals [place] Rate: 98 P: 76 OR: 171 QRS: -4 QRSD: 100 T: 57 QT: 389 QTc: 496 Interpretive Statements Sinus rhythm Probable left atrial enlargement Compared to ECG 12/06/2020 15:51:49 No significant changes Electronically Signed On 01-16-2021 11:44:55 EDT by Marcellus Terry
== END 2021-01-14 22:30 | disposition home or self-care (01) ==
LOC: ED 13:18 → 3A 15:33
PROVIDERS: ADMIT Internal Medicine; ATTEND Internal Medicine
DX: E87.70 Fluid overload, unspecified (principal); I12.0 Hypertensive chronic kidney disease with stage 5 chronic kidney disease or end stage renal disease; E11.22 Type 2 diabetes mellitus with diabetic chronic kidney disease; N18.6 End stage renal disease; I16.1 Hypertensive emergency; J81.1 Chronic pulmonary edema; E78.5 Hyperlipidemia, unspecified; K21.9 Gastro-esophageal reflux disease without esophagitis; E78.00 Pure hypercholesterolemia, unspecified; G47.33 Obstructive sleep apnea (adult) (pediatric); E66.01 Morbid (severe) obesity due to excess calories; Z99.2 Dependence on renal dialysis; Z68.43 Body mass index [BMI] 50.0-59.9, adult; Z91.19 Patient's noncompliance with other medical treatment and regimen; Z48.02 Encounter for removal of sutures; Z79.899 Other long term (current) drug therapy
CPT/HCPCS: 36415; 71046; 80048; 80074; 83880; 85025; 85610; 93005; 94644; 99285; G0378